=== PATIENT | female | born 1950 | race Caucasian/White ===

== ENCOUNTER 2022-02-03 08:48 | Day surgery (SDC) | payer MEDICARE, SELFPAY ==
[2022-01-23 11:52] VITALS: BMI 38.7
--- NOTE | 2022-01-28 13:11 | P.CONAN_ITS ---
Documented by User: Lola Marte NP 01/28/22 13:12 HPI - Anesthesia Eval Consult details Narrative: 71yo F for Right Cataract Extraction IOL Insertion PCP cleared No previous cataract on record PMFSH Past Medical History Medical History Arthritis of spine Back pain Diabetes Elevated cholesterol Fatty liver History of chemotherapy History of headache HTN (hypertension) Hx of diarrhea TAMARA (obstructive sleep apnea) Surgical History Surgical History History of kidney surgery History of lumpectomy of left breast History of lumpectomy of right breast History of nephrectomy, left Hx of varicose vein ligation and stripping Social History Social History Are you a primary director of primary care to a significant other at home: No Do you presently have visiting nurse or other home services: No Patient Tobacco Use Status: Former Tobacco user Quit Date: 2000 Tobacco use type: Cigarette Use of substances other than those prescribed or required for medical reasons: No Have you been hit, kicked, punched, or otherwise hurt by someone within the past year? If so, by whom?: No Are you DNR?: No Advance Directives: No Advance Directives Information Provided: Yes Advance Directives on File: No Recently lost weight without trying: No Eating poorly because of decreased appetite: No Nutrition Risks: No Nutritional Risk Patient : No Poor oral hygiene: No (Upper Dentures) Meds Allergies Allergy/AdvReac Type Severity Reaction Status Date / Time amoxicillin Allergy Rash Verified 01/23/22 11:41 Iodinated Contrast Media Allergy Rash, [place] Verified 01/23/22 11:41 [Contrast Dye] like Blood Boiling nickel Allergy Rash Verified 01/23/22 11:41 rubber, unspecified Allergy + Rxn from Verified 01/23/22 11:41 allergy testing Sulfa (Sulfonamide Allergy Swelling Verified 01/23/22 11:41 Antibiotics) Home Medications Medication Instructions Recorded Confirmed Last Taken Type anastrozole 1 mg tablet 1 tab PO DAILY 01/23/22 01/23/22 Unknown History carvedilol 25 mg tablet 2 tab PO BID 01/23/22 01/23/22 02/03/22 History duloxetine 30 mg capsule,delayed 30 mg PO DAILY 11/01/23/22 02/03/22 History release duloxetine 60 mg capsule,delayed 60 mg PO DAILY 01/23/22 01/23/22 02/03/22 History release gabapentin 600 mg tablet 1 tab PO TID 01/23/22 01/23/22 02/03/22 History losartan 100 mg tablet 1 tab PO DAILY 01/23/22 01/23/22 02/03/22 History metformin 500 mg tablet 1 tab PO DAILY 01/23/22 01/23/22 Unknown History simvastatin 20 mg tablet 1 tab PO BEDTIME 01/23/22 01/23/22 Unknown History Exam Exam Date and Time: January 28, 2022 1311 Height,Weight and Vital Signs: Height 5 ft 8 in Weight 115.666 kg Assessment and Plan Assessment Anesthesia Assessment: Chart Reviewed Documented by User: Kong Wang MD 02/03/22 13:01 [facility] Past Medical History Medical History Arthritis of spine Back pain Diabetes Elevated cholesterol Fatty liver History of chemotherapy History of headache HTN (hypertension) Hx of diarrhea TAMARA (obstructive sleep apnea) Family History Family history of problems with anesthesia: No Surgical History Surgical History History of kidney surgery History of lumpectomy of left breast History of lumpectomy of right breast History of nephrectomy, left Hx of varicose vein ligation and stripping History of Problems with Anesthesia: No Social History Social History Are you a primary director of primary care to a significant other at home: No Do you presently have visiting nurse or other home services: No Patient Tobacco Use Status: Former Tobacco user Quit Date: 2000 Tobacco use type: Cigarette Use of substances other than those prescribed or required for medical reasons: No Have you been hit, kicked, punched, or otherwise hurt by someone within the past year? If so, by whom?: No Are you DNR?: No Advance Directives: No Advance Directives Information Provided: Yes Advance Directives on File: No Recently lost weight without trying: No Eating poorly because of decreased appetite: No Nutrition Risks: No Nutritional Risk Patient : No Poor oral hygiene: No (Upper Dentures) Meds Allergies Allergy/AdvReac Type Severity Reaction Status Date / Time amoxicillin Allergy Rash Verified 01/23/22 11:41 Iodinated Contrast Media Allergy Rash, [place] Verified 01/23/22 11:41 [Contrast Dye] like Blood Boiling nickel Allergy Rash Verified 01/23/22 11:41 rubber, unspecified Allergy + Rxn from Verified 01/23/22 11:41 allergy testing Sulfa (Sulfonamide Allergy Swelling Verified 01/23/22 11:41 Antibiotics) Home Medications Medication Instructions Recorded Confirmed Last Taken Type anastrozole 1 mg tablet 1 tab PO DAILY 01/23/22 01/23/22 Unknown History carvedilol 25 mg tablet 2 tab PO BID 01/23/22 01/23/22 02/03/22 History duloxetine 30 mg capsule,delayed 30 mg PO DAILY 01/23/22 01/23/22 02/03/22 History release duloxetine 60 mg capsule,delayed 60 mg PO DAILY 01/23/22 01/23/22 02/03/22 History release gabapentin 600 mg tablet 1 tab PO TID 01/23/22 01/23/22 02/03/22 History losartan 100 mg tablet 1 tab PO DAILY 01/23/22 01/23/22 02/03/22 History metformin 500 mg tablet 1 tab PO DAILY 01/23/22 01/23/22 Unknown History simvastatin 20 mg tablet 1 tab PO BEDTIME 01/23/22 01/23/22 Unknown History Exam Airway Mallampati Class: III TM Dist: >3cm Neck ROM: Full Denture: Upper Loose/Missing/Broken Teeth: Yes (upper denture, lower poor dentition missing globally) Heart: [id number] Lungs: cta b/l Assessment and Plan Assessment Anesthesia Assessment: Anesthesia Plan Discussed Final Anesthetic Review Family History of Problems with Anesthesia: No History of Problems with Anesthesia: No NPO: Yes ASA Class: III Final Preanesthetic Review: No Changes in Pt Med Stat, Meds/Allgs Chart Reviewed, Consent Obtained/Reviewed and Anes Risks/Benef Reviewed Patient Risk: Intermediate Procedure Risk: Intermediate Assessment/Block/Sedation in SS: Assess/Block/Sedation-SS Anesthetic Plan Anesthetic Plan: MAC: and Agree w/ Assess. and Plan Disposition: Standard PACU
--- NOTE | 2022-01-29 08:40 | MHC.SHP ---
Pre-Procedural Eval Section A Date of Service: 01/29/22 The patient is an INPATIENT: No Changes since office visit: No Cold of Flu in the past 2 weeks, No New Medical Problems, No Changes in Medication and No Patient answered all questions The History & Physical has been completed within 30 days and I have reviewed it.: Yes Section B Chief Complaint: Age-related nuclear cataract, right eye Allergies: Allergies Allergy/AdvReac Type Severity Reaction Status Date / Time amoxicillin Allergy Rash Verified 01/23/22 11:41 Iodinated Contrast Media Allergy Rash, [place] Verified 01/23/22 11:41 [Contrast Dye] like Blood Boiling nickel Allergy Rash Verified 01/23/22 11:41 rubber, unspecified Allergy + Rxn from Verified 01/23/22 11:41 allergy testing Sulfa (Sulfonamide Allergy Swelling Verified 01/23/22 11:41 Antibiotics) Plan Diagnosis/Plan: Unchanged I have reviewed the history and physical and performed a pertinent physical examination on my patient. No changes have occurred unless specified.
[2022-02-03 10:45] VITALS: BP 171/90; PULSE 89; RESP 18; TEMP 36.6; O2SAT 94
[2022-02-03 11:37] LABS: Glucose, Whole Blood 140 mg/dL (60-115)
[2022-02-03] MEDS: Tetracaine HCl/PF 0.5% Oph Sol 4 ML DROPS 1 DROP EYE-RIGHT (12:23)
[2022-02-03] MEDS: Lactated Ringers 500 ML 50 ML IV (12:30)
[2022-02-03] MEDS: Tropicamide 1 % Ophth Sol 3 ML BTL 1 DROP EYE-RIGHT ×3 (12:30→12:38)
[2022-02-03] MEDS: Cyclopentolate 1 % Ophth Sol 2 ML DRPBTL 1 DROP EYE-RIGHT ×3 (12:30→12:38)
[2022-02-03] MEDS: Ketorolac Tromethamine 0.5% Op 5 ML DROPS 1 DROP EYE-RIGHT ×3 (12:31→12:38)
[2022-02-03] MEDS: Phenylephrine HCL 2.5% Oph SoL 2 ML BOTTLE 1 DROP EYE-RIGHT ×3 (12:31→12:38)
--- NOTE | 2022-02-03 13:38 | HO.PNOPHT ---
Ophthalmology Procedure Procedure Date of Service: 02/03/22 Ophthalmology Viscoelastic: Subhash Parkt Dual Pack Pro Ophthalmology Lenses: TECZEESHAN [id number] (22) Procedure Notes: PREOPERATIVE DIAGNOSIS: Decreased visual acuity right eye secondary to cataract POSTOPERATIVE DIAGNOSIS: Same PROCEDURE: Right cataract extraction with intraocular lens insertion SURGEON: Kannan Adler M.D. ANESTHESIA: Topical/MAC ESTIMATED BLOOD LOSS: None COMPLICATIONS: None After obtaining informed consent, the patient was brought to the operating room suite and placed in the supine position. After adequate sedation per anesthesia, topical drops of Tetracaine were given to the right eye. The eye was then prepped and draped in the usual sterile fashion. The operating room microscope was then positioned over the operative eye and a lid speculum placed. A paracentesis was created. Viscoelastic was then instilled into the anterior chamber. A three plane incision was then created temporally, utilizing a 2.85 mm keratome. Capsulotomy forceps were then utilized to create a circular tear capsulotomy. Hydrodissection and hydrodelineation were carried out until adequate mobilization of the nucleus occurred. Phacoemulsification was then utilized to remove the dense central nucleus followed by removal of the cortical material utilizing the automated aspiration irrigation unit. Viscoelastic was instilled into the posterior capsular bag followed by placement of a posterior chamber intraocular lens without difficulty. The residual Viscoelastic was then removed utilizing the automated IA machine. The wound was checked and found to be watertight. The patient tolerated the procedure well and the lid speculum was removed. Intracameral injection of Vigamox 0.1 mL followed by a subtenon injection of Kenalog-40 0.2 mL were administered. The patient will be seen in the a.m.
[2022-02-03 14:05] VITALS: BP 111/93; PULSE 90; RESP 16; TEMP 37.2; O2SAT 95
== END 2022-02-03 14:19 | disposition home or self-care (01) ==
PROVIDERS: PCP Internal Medicine; Visit Provider Ophthalmology
PROC: (CPT 66985; principal; 2022-02-03 11:30)
DX: H25.11 Age-related nuclear cataract, right eye (principal); I10 Essential (primary) hypertension; E11.9 Type 2 diabetes mellitus without complications; Z79.84 Long term (current) use of oral hypoglycemic drugs; Z79.899 Other long term (current) drug therapy; Z88.0 Allergy status to penicillin; Z88.2 Allergy status to sulfonamides
CPT/HCPCS: 66984; 82947; J2250; J3300; J7999; V2632

== ENCOUNTER 2022-02-17 08:24 | Day surgery (SDC) | payer MEDICARE, SELFPAY ==
[2022-01-23 11:48] VITALS: BMI 38.7
--- NOTE | 2022-02-13 08:51 | P.HPSUR_ITS ---
Pre-Procedural Eval Section A Date of Service: 02/13/22 The patient is an INPATIENT: No Changes since office visit: No Cold of Flu in the past 2 weeks, No New Medical Problems, No Changes in Medication and No Patient answered all questions The History & Physical has been completed within 30 days and I have reviewed it.: Yes Section B Chief Complaint: Age-related nuclear cataract, left eye Allergies: Allergies Allergy/AdvReac Type Severity Reaction Status Date / Time amoxicillin Allergy Rash Verified 01/23/22 11:41 Iodinated Contrast Media Allergy Rash, [place] Verified 01/23/22 11:41 [Contrast Dye] like Blood Boiling nickel Allergy Rash Verified 01/23/22 11:41 rubber, unspecified Allergy + Rxn from Verified 01/23/22 11:41 allergy testing Sulfa (Sulfonamide Allergy Swelling Verified 01/23/22 11:41 Antibiotics) Plan Diagnosis/Plan: Unchanged I have reviewed the history and physical and performed a pertinent physical examination on my patient. No changes have occurred unless specified.
--- NOTE | 2022-02-14 09:34 | P.CONAN_ITS ---
Documented by User: Lola Marte NP 02/14/22 09:35 HPI - Anesthesia Eval Consult details Narrative: 71yo F for Left?Cataract Extraction IOL Insertion PCP cleared Right eye 02/03/22 with MAC: Midaz [facility] Past Medical History Medical History Arthritis of spine Back pain Diabetes Elevated cholesterol Fatty liver History of chemotherapy History of headache HTN (hypertension) Hx of diarrhea TAMARA (obstructive sleep apnea) Family History Family history of problems with anesthesia: No Surgical History Surgical History History of kidney surgery History of lumpectomy of left breast History of lumpectomy of right breast History of nephrectomy, left Hx of varicose vein ligation and stripping History of Problems with Anesthesia: No Social History Social History Are you a primary home care music therapist to a significant other at home: No Do you presently have visiting nurse or other home services: No Patient Tobacco Use Status: Former Tobacco user Quit Date: 2000 Tobacco use type: Cigarette Use of substances other than those prescribed or required for medical reasons: No Have you been hit, kicked, punched, or otherwise hurt by someone within the past year? If so, by whom?: No Are you DNR?: No Advance Directives: No Advance Directives Information Provided: Yes Advance Directives on File: No Recently lost weight without trying: No Eating poorly because of decreased appetite: No Nutrition Risks: No Nutritional Risk Patient : No Poor oral hygiene: No (Upper Dentures) Meds Allergies Allergy/AdvReac Type Severity Reaction Status Date / Time amoxicillin Allergy Rash Verified 01/23/22 11:41 Iodinated Contrast Media Allergy Rash, [place] Verified 01/23/22 11:41 [Contrast Dye] like Blood Boiling nickel Allergy Rash Verified 01/23/22 11:41 rubber, unspecified Allergy + Rxn from Verified 01/23/22 11:41 allergy testing Sulfa (Sulfonamide Allergy Swelling Verified 01/23/22 11:41 Antibiotics) Home Medications Medication Instructions Recorded Confirmed Last Taken Type anastrozole 1 mg tablet 1 tab PO DAILY 01/23/22 01/23/22 Unknown History carvedilol 25 mg tablet 2 tab PO BID 01/23/22 01/23/2202/17/22 History duloxetine 30 mg capsule,delayed 30 mg PO DAILY 01/23/22 01/23/22 02/17/22 History release duloxetine 60 mg capsule,delayed 60 mg PO DAILY 01/23/22 01/23/22 02/17/22 History release gabapentin 600 mg tablet 1 tab PO TID 01/23/22 01/23/22 02/17/22 History losartan 100 mg tablet 1 tab PO DAILY 01/23/22 01/23/22 02/17/22 History metformin 500 mg tablet 1 tab PO DAILY 01/23/22 01/23/22 02/17/22 History simvastatin 20 mg tablet 1 tab PO BEDTIME 01/23/22 01/23/22 Unknown History Exam Exam Date and Time: February 14, 2022 09 Height,Weight and Vital Signs: Height 5 ft 8 in Weight 115.666 kg Assessment and Plan Assessment Anesthesia Assessment: Chart Reviewed Final Anesthetic Review Family History of Problems with Anesthesia: No History of Problems with Anesthesia: No Documented by User: Yamel Pereira MD 02/17/22 10:47 PMFSH Past Medical History Medical History Arthritis of spine Back pain Diabetes Elevated cholesterol Fatty liver History of chemotherapy History of headache HTN (hypertension) Hx of diarrhea TAMARA (obstructive sleep apnea) Surgical History Surgical History History of kidney surgery History of lumpectomy of left breast History of lumpectomy of right breast History of nephrectomy, left Hx of varicose vein ligation and stripping Social History Social History Are you a primary home care music therapist to a significant other at home: No Do you presently have visiting nurse or other home services: No Patient Tobacco Use Status: Former Tobacco user Quit Date: 2000 Tobacco use type: Cigarette Use of substances other than those prescribed or required for medical reasons: No Have you been hit, kicked, punched, or otherwise hurt by someone within the past year? If so, by whom?: No Are you DNR?: No Advance Directives: No Advance Directives Information Provided: Yes Advance Directives on File: No Recently lost weight without trying: No Eating poorly because of decreased appetite: No Nutrition Risks: No Nutritional Risk Patient : No Poor oral hygiene: No (Upper Dentures) Meds Allergies Allergy/AdvReac Type Severity Reaction Status Date / Time amoxicillin Allergy Rash Verified 01/23/22 11:41 Iodinated Contrast Media Allergy Rash, [place] Verified 01/23/22 11:41 [Contrast Dye] like Blood Boiling nickel Allergy Rash Verified 01/23/22 11:41 rubber, unspecified Allergy + Rxn from Verified 01/23/22 11:41 allergy testing Sulfa (Sulfonamide Allergy Swelling Verified 01/23/22 11:41 Antibiotics) Home Medications Medication Instructions Recorded Confirmed Last Taken Type anastrozole 1 mg tablet 1 tab PO DAILY 01/23/22 01/23/22 Unknown History carvedilol 25 mg tablet 2 tab PO BID 01/23/22 01/23/22 02/17/22 History duloxetine 30 mg capsule,delayed 30 mg PO DAILY 01/23/22 01/23/22 02/17/22 History release duloxetine 60 mg capsule,delayed 60 mg PO DAILY 01/23/22 01/23/22 02/17/22 History release gabapentin 600 mg tablet 1 tab PO TID 01/23/22 01/23/22 02/17/22 History losartan 100 mg tablet 1 tab PO DAILY 01/23/22 01/23/22 02/17/22 History metformin 500 mg tablet 1 tab PO DAILY 01/23/22 01/23/22 02/17/22 History simvastatin 20 mg tablet 1 tab PO BEDTIME 01/23/22 01/23/22 Unknown History Exam Airway Mallampati Class: III TM Dist: >3cm Neck ROM: Full Denture: Upper Heart: rrr Lungs: cta Assessment and Plan Assessment Anesthesia Assessment: Anesthesia Plan Discussed and Chart Reviewed Final Anesthetic Review NPO: Yes Final Preanesthetic Review: No Changes in Pt Med Stat, Meds/Allgs Chart Reviewed and Consent Obtained/Reviewed Patient Risk: Intermediate Procedure Risk: Intermediate Anesthetic Plan Anesthetic Plan: MAC: Disposition: Standard PACU
[2022-02-17 10:29] VITALS: BP 146/82; PULSE 96; RESP 16; TEMP 35.9; O2SAT 94
[2022-02-17] MEDS: Lactated Ringers 500 ML 50 ML IV (10:31)
[2022-02-17] MEDS: Tetracaine HCl/PF 0.5% Oph Sol 4 ML DROPS 1 DROP EYE-LEFT (10:32)
[2022-02-17] MEDS: Cyclopentolate 1 % Ophth Sol 2 ML DRPBTL 1 DROP EYE-LEFT ×3 (10:33→10:47)
[2022-02-17] MEDS: Tropicamide 1 % Ophth Sol 3 ML BTL 1 DROP EYE-LEFT ×3 (10:34→10:48)
[2022-02-17] MEDS: Ketorolac Tromethamine 0.5% Op 5 ML DROPS 1 DROP EYE-LEFT ×3 (10:36→10:49)
[2022-02-17] MEDS: Phenylephrine HCL 2.5% Oph SoL 2 ML BOTTLE 1 DROP EYE-LEFT ×3 (10:37→10:50)
[2022-02-17 10:47] LABS: Glucose, Whole Blood 118 mg/dL (60-115)
--- NOTE | 2022-02-17 11:39 | HO.PNOPHT ---
Ophthalmology Procedure Procedure Date of Service: 02/17/22 Ophthalmology Viscoelastic: Healjennifer Duet Dual Pack Pro Ophthalmology Lenses: TECZEESHAN [id number] (22) Procedure Notes: PREOPERATIVE DIAGNOSIS: Decreased visual acuity left eye secondary to cataract POSTOPERATIVE DIAGNOSIS: Same PROCEDURE: Left cataract extraction with intraocular lens insertion SURGEON: Kannan Adler M.D. ANESTHESIA: Topical/MAC ESTIMATED BLOOD LOSS: None COMPLICATIONS: None After obtaining informed consent, the patient was brought to the operation room suite and placed in the supine position. After adequate sedation per anesthesia, topical drops of Tetracaine were given to the left eye. The eye was then prepped and draped in the usual sterile fashion. The operating room microscope was then positioned over the operative eye and a lid speculum placed. A paracentesis was created. Viscoelastic was then instilled into the anterior chamber. A three plane incision was then created temporally, utilizing a 2.85 mm keratome. Capsulotomy forceps were then utilized to create a circular tear capsulotomy. Hydrodissection and hydrodelineation were carried out until adequate mobilization of the nucleus occurred. Phacoemulsification was then utilized to remove the dense central nucleus followed by removal of the cortical material utilizing the automated aspiration irrigation unit. Viscoat elastic was instilled into the posterior capsular bag followed by placement of a posterior chamber intraocular lens without difficulty. The residual Viscoat elastic was then removed utilizing the automated IA machine. The wound was check and found to be watertight. The patient tolerated the procedure well and the lid speculum was removed. Intracameral injection of Vigamox 0.1 mL followed by a subtenon injection of Kenalog-40 0.2 mL were administered. The patient will be seen in the a.m.
[2022-02-17 12:08] VITALS: BP 140/80; PULSE 97; RESP 18; TEMP 36.6; O2SAT 96
[2022-02-17] MEDS: Acetaminophen 325 MG TABLET 975 MG PO (12:12)
== END 2022-02-17 12:22 | disposition home or self-care (01) ==
PROVIDERS: PCP Internal Medicine; Visit Provider Ophthalmology
PROC: (CPT 66985; principal; 2022-02-17 11:30)
DX: H25.12 Age-related nuclear cataract, left eye (principal); E11.9 Type 2 diabetes mellitus without complications; I10 Essential (primary) hypertension; Z79.84 Long term (current) use of oral hypoglycemic drugs; Z79.899 Other long term (current) drug therapy; Z88.0 Allergy status to penicillin; Z88.2 Allergy status to sulfonamides; Z91.041 Radiographic dye allergy status
CPT/HCPCS: 66984; 82947; J2250; J3010; J3301; J7999; V2632

== ENCOUNTER 2024-07-01 11:20 | Outpatient (RCR) | payer MEDICARE, SELFPAY | END 2024-08-10 16:35 | disposition home or self-care (01) | LOC: HO.WCC 11:20 | PROVIDERS: PCP Internal Medicine; Visit Provider Surgery Surgical Oncology | DX: E11.621 Type 2 diabetes mellitus with foot ulcer (principal); L97.512 Non-pressure chronic ulcer of other part of right foot with fat layer exposed; E11.40 Type 2 diabetes mellitus with diabetic neuropathy, unspecified; I10 Essential (primary) hypertension; L84 Corns and callosities; Z87.891 Personal history of nicotine dependence | CPT/HCPCS: 11042; 15275; Q4187 ==

== ENCOUNTER 2024-07-29 23:13 | Emergency (ER) | payer MEDICARE, SELFPAY ==
--- NOTE | ~2024-07-29 | XR_ITS ---
CLINICAL HISTORY: fall pain 3 view right ankle Comparison: None Findings: There is a fracture of the medial malleolus. There is a distal fibular fracture with overlying soft tissue swelling. No significant loss of joint space, osteophytes, or erosions. No ankle effusion. No radiopaque foreign body. IMPRESSION: 1. Distal fibular and medial malleolar fractures. This document has been electronically signed by: Jett Dumont MD on 07/30/2024 04:41:55
[2024-07-29 23:16] VITALS: BP 185/91; PULSE 100; RESP 17; TEMP 36.6; O2SAT 100; BMI 34.2
--- NOTE | 2024-07-30 01:00 | PC.NURSE ---
pt brought to ed23 via wheelchair, refusing to sit in hospital bed states comfortable in wheelchair. pt states pain does not improve with tylenol taken lighter captain. awaiting to be seen by ed provider.
[2024-07-30] MEDS: oxyCODONE HCl Immed Release 5 MG TABLET PO (02:47)
--- NOTE | 2024-07-30 03:59 | ED.GENADULT ---
HPI - General Adult General Chief complaint: Fall Stated complaint: ankle injury, fall Time Seen by Provider: 07/30/24 02:22 Source: patient Limitations: no limitations History of Present Illness ED Provider: Chio Lawrence PA-C HPI narrative: 73-year-old female with a history of obesity, hypertension, hyperlipidemia, diabetes, who presents with right ankle pain. Patient states she missed the curbing, step-down, subsequently rolling her ankle, now with pain and swelling. Patient states she can not bear weight secondary to the pain. Patient did not strike her head with the fall. Related Data Home Medications ?Medication ?Instructions ?Recorded ?Confirmed anastrozole 1 mg tablet 1 tab PO DAILY 01/23/22 01/23/22 carvedilol 25 mg tablet 2 tab PO BID 01/23/22 01/23/22 duloxetine 30 mg capsule,delayed 30 mg PO DAILY 01/23/22 01/23/22 release duloxetine 60 mg capsule,delayed 60 mg PO DAILY 01/23/22 01/23/22 release gabapentin 600 mg tablet 1 tab PO TID 01/23/22 01/23/22 losartan 100 mg tablet 1 tab PO DAILY 01/23/22 01/23/22 metformin 500 mg tablet 1 tab PO DAILY 01/23/22 01/23/22 simvastatin 20 mg tablet 1 tab PO BEDTIME 01/23/22 01/23/22 Previous Rx's ?Medication ?Instructions ?Recorded oxycodone 5 mg tablet 5 mg PO Q6H PRN pain #14 tabs 07/30/24 Allergies Allergy/AdvReac Type Severity Reaction Status Date / Time amoxicillin Allergy Rash Verified 07/29/24 23:18 Iodinated Contrast Media Allergy Rash, [place] Verified 07/29/24 23:18 [Contrast Dye] like Blood Boiling nickel Allergy Rash Verified 07/29/24 23:18 rubber, unspecified Allergy + Rxn from Verified 07/29/24 23:18 allergy testing Sulfa (Sulfonamide Allergy Swelling Verified 07/29/24 23:18 Antibiotics) Review of Systems Review of Systems: Yes all other systems are reviewed and are negative Constitutional: Constitutional: Denies fatigue and Denies fever(s) Cardiovascular: Cardiovascular: Denies chest pain and Denies dyspnea Respiratory: Respiratory: Denies dyspnea Musculoskeletal: Musculoskeletal: Reports arthralgias and Reports joint swelling Endocrine: Endocrine: Denies fatigue PMFSH Past Medical History Attestation statement: The following information was validated with the patient. Medical History Arthritis of spine Back pain Diabetes Elevated cholesterol Fatty liver History of chemotherapy History of headache HTN (hypertension) Hx of diarrhea TAMARA (obstructive sleep apnea) Surgical History History of kidney surgery History of lumpectomy of left breast History of lumpectomy of right breast History of nephrectomy, left Hx of varicose vein ligation and stripping Social History Social History Are you a primary day care center director to a significant other at home: No Do you presently have visiting nurse or other home services: No Patient Tobacco Use Status: Former Tobacco user Tobacco use type: Cigarette Advance Directives: No Advance Directives Information Provided: Yes Do you have a plan to hurt others: No Plan Physical Exam ED Vital Signs: Vital Signs - 24 hr 07/29/24 23:16 07/30/24 04:03 Temperature 97.8 F 98.2 F Pulse Rate 100 105 H Respiratory Rate 17 20 Blood Pressure 185/91 H 154/71 H Pulse Oximetry 100 93 Oxygen Delivery Method Room Air Room Air BMI result Body Mass Index 34.2 Const Other: Alert Orientation/consciousness: patient oriented x3 Resp Effort & Inspection: normal respiratory effort Cardio Other: Normal peripheral perfusion Skin Other: Warm dry no rash Neuro General: patient oriented x3, no focal motor deficits and CN's II-XI intact bilaterally Extrem Other: Ankle is uniformly swollen Psych Other: Hostile, displeased at the wait time this evening Medications Administered Discontinued Medications Generic Name Dose Route Start Last Admin Trade Name Freq PRN Reason Stop Dose Admin Oxycodone HCl 5 mg 07/30/24 02:33 07/30/24 02:47 Oxycodone Hcl Immed Release 5 Mg Tablet PO 07/30/24 02:34 5 mg ONCE ONE Administration Procedures Orthopedic Splinting/Casting Right bimalleolar ankle fracture: Side: right Lower Extremity Injury Location: ankle Lower Extremity Immobilizer: posterior splint and stirrup splint Other Orthopedic Equipment: crutches Additional Comments: Patient was placed in 3 layers of cast padding. A 4 in x 35 in piece of cast padding was used to make the stirrup splint and a 4 x 35 in piece of cast padding was used to make the posterior splint. These were held in place with [place] wraps. Patient's foot was neurovascularly intact after placement of the splint. 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 Patient states she missed the curbing, step-down, subsequently rolling her ankle, now with pain and swelling. Patient states she can not bear weight secondary to the pain. Patient did not strike her head with the fall. Problem: Age, obesity History: Per patient I have considered the following differential diagnoses: Fracture, dislocation, sprain, contusion Plan: X-rays are pending, giving the patient oxycodone for her discomfort. I have independently reviewed the following tests: X-ray right ankle. Pending at the time of sign-out 07/30/2024 at 05:30 hours, Dr. Moe Lockwood's note: I assumed care of this patient from my colleague, physician wardrobe assistant Chio Lawrence at 04:00 hours, pending the radiology reading of the patient's right ankle x-ray. I did review the radiology reading below. Patient has a distal fibular and medial malleolar fracture. The patient was placed in a sugar-tong and posterior ortho glass splint by me. The patient only has 1 functioning kidney therefore she can not take ibuprofen. She was advised to take Tylenol and for pain not relieved by Tylenol she was prescribed oxycodone. She was given printed and verbal instructions and discharged home. 3 view right ankle Comparison: None Findings: There is a fracture of the medial malleolus. There is a distal fibular fracture with overlying soft tissue swelling. No significant loss of joint space, osteophytes, or erosions. No ankle effusion. No radiopaque foreign body. IMPRESSION: 1. Distal fibular and medial malleolar fractures. This document has been electronically signed by: Jett Dumont MD on 07/30/2024 04:41:55 Discharge Plan Discharge Clinical Impression: Bimalleolar ankle fracture Qualifiers: Encounter type: initial encounter Fracture type: closed Laterality: right Qualified Code(s): S82.841A - Displaced bimalleolar fracture of right lower leg, initial encounter for closed fracture Patient Disposition: Home, Self-Care Additional Instructions: You broke/fractured your ankle bones. You broke the distal tibia and distal fibula. You were placed in a sugar-tong and posterior splint. You need to keep the splint on until your re-evaluated by the orthopedic providers. Do not get the splint wet. Use your wheelchair and the crutches to get around. Try not to put any weight on the ankle when your using the crutches but you can touch your foot down to the floor to help with your balance. Take Tylenol (acetaminophen) 500 mg pills, 2 pills every 4-6 hours as needed for pain. For pain not relieved by Tylenol take oxycodone 5 mg pills, 1 pill every 4 hours as needed for pain. Do not drive or work while taking this medication since they can cause sleepiness. Oxycodone is a narcotic medication that can be addicting. If you are concerned about addiction you can ask the pharmacist for less pills or do not get this prescription filled. Follow-up with your doctor in 2 days. Please return to the emergency department if your symptoms get worse or if you develop any symptoms that are concerning to you. Prescriptions: New oxycodone 5 mg tablet 5 mg PO Q6H PRN (Reason: pain) Qty: 14 0RF Rx Instructions: Partial Fill upon patient request. No Action metformin 500 mg tablet 1 tab PO DAILY anastrozole 1 mg tablet 1 tab PO DAILY gabapentin 600 mg tablet 1 tab PO TID simvastatin 20 mg tablet 1 tab PO BEDTIME losartan 100 mg tablet 1 tab PO DAILY duloxetine 30 mg capsule,delayed release(DR/EC) 30 mg PO DAILY duloxetine 60 mg capsule,delayed release(DR/EC) 60 mg PO DAILY carvedilol 25 mg tablet 2 tab PO BID Referrals: Malick Clifford MD [Physician] - 1 week (Right ankle trimalleolar fracture, placed in sugar-tong and posterior splint. IMPRESSION: 1. Distal fibular and medial malleolar fractures.) Print Language: Icelandic
[2024-07-30 04:03] VITALS: BP 154/71; PULSE 105; RESP 20; TEMP 36.8; O2SAT 93
[2024-07-30 06:23] VITALS: BP 154/71; PULSE 105; RESP 20; TEMP 36.8; O2SAT 93
== END 2024-07-30 06:43 | disposition home or self-care (01) ==
PROVIDERS: Emergency Provider Emergency Medicine Emergency Medical Services; PCP Internal Medicine
DX: S82.841A Displaced bimalleolar fracture of right lower leg, initial encounter for closed fracture (principal); M25.571 Pain in right ankle and joints of right foot; X58.XXXA Exposure to other specified factors, initial encounter; X50.1XXA Overexertion from prolonged static or awkward postures, initial encounter; Y99.8 Other external cause status; Y93.9 Activity, unspecified; Y92.480 Sidewalk as the place of occurrence of the external cause
CPT/HCPCS: 73610; 99283; 99284

== ENCOUNTER → 2024-07-30 | Outpatient (BNV) | payer MEDICARE, SELFPAY | PROVIDERS: Emergency Provider Emergency Medicine Emergency Medical Services; PCP Internal Medicine; Visit Provider Specialist | DX: S82.831A Other fracture of upper and lower end of right fibula, initial encounter for closed fracture (principal); S82.51XA Displaced fracture of medial malleolus of right tibia, initial encounter for closed fracture; W19.XXXA Unspecified fall, initial encounter | CPT/HCPCS: 73610 ==

== ENCOUNTER 2024-08-05 14:17 | Outpatient (REF) | payer MEDICARE, SELFPAY ==
--- NOTE | ~2024-08-05 | XR_ITS ---
EXAMINATION: XR ANKLE 3 OR MORE VIEWS RIGHT HISTORY: M25.579 - Pain in unspecified ankle and joints of unspecified foot COMPARISON: Comparison is made with the prior examination dated 07/30/2024. FINDINGS: Three views of the right ankle are submitted. Osseous mineralization is normal. Again seen is an oblique fracture of the distal fibula and transverse fracture of the medial malleolus. Both fractures demonstrate slightly increased displacement since the prior study. There is no dislocation. The joint spaces are preserved. There is diffuse soft tissue swelling. XR/XR ankle RT min 3V IMPRESSION: Slightly greater displacement of the previously noted oblique fracture of the distal fibula and transverse fracture of the medial malleolus. Electronically signed by: Christiano Senior MD 08/08/2024 07:19 AM EDT
--- OUTSIDE RECORDS SUMMARY | 2024-08-05 14:20 | XMS_ITS | Clinical Summary ---
Author Organization [facility] Address [address] [place] [address] Care Team Providers Care Shower Enclosure Installer Name Role Phone Taylor Contreras MD Primary Care Provider [phone] Josselyn Rice RN Unavailable [phone] Allergies Active Allergy Reactions Criticality Noted Date Comments Amoxicillin Rash/Dermatitis Medium 10/11/2015 Iodinated Contrast Media Hives Medium 10/11/2015 Nickel Rash/Dermatitis Low 10/11/2015 Sulfa Antibiotics Swelling Medium 10/11/2015 Medications carvedilol (COREG) 25 MG tablet Take 25 mg by mouth 2 (two) times a day with meals. 2 09/07/2015 Active simvastatin (ZOCOR) 20 MG tablet Take 20 mg by mouth nightly. 1 08/09/2015 Active gabapentin (NEURONTIN) 600 MG tablet Take 600 mg by mouth 3 (three) times a day. Active losartan (COZAAR) 25 MG tablet TK 1 T PO QD 11 03/05/2016 Active calcium carbonate-vitam in D (OSCAL) 500 mg-200 unit Tab tablet Take 1 tablet by mouth every morning with breakfast. Active Active Problems Problem Noted Date Diagnosed Date Chronic kidney disease (CKD) 06/03/2016 Renal cancer 06/03/2016 History of kidney cancer 03/19/2016 Renal mass 11/05/2015 Right renal mass 10/11/2015 Family History Medical History Relation Name Comments Lung cancer Father Heart failure Mother Relation Name Status Comments Father Mother Social History Tobacco Use Types Packs/Day Years Used Date Smoking Tobacco: Former Cigarettes 1 35 0 09/06/1965 - 09/06/2000 Alcohol Use Standard Drinks/Week Comments Yes 3 (1 standard drink = 0.6 oz pur e alcohol) Comments No Sex and Gender Information Value Date Recorded Sex Assigned at Not on file Legal Sex Female 3:27 PM EDT Gender Identity Not on file Sexual Orientation Not on file Last Filed Vital Signs Vital Sign Reading Time Taken Comments Blood Pressure 130/78 06/03/2016 2:46 PM EDT Pulse 95 11/27/2015 11:11 AM EDT Temperature 36.8 ??C (98.2 ??F) 11/27/2015 11:11 AM E DT Respiratory Rate 16 06/03/2016 2:46 PM EDT Oxygen Saturation 95% 11/11/2015 12:30 PM EDT Inhaled Oxygen Concentration - - Weight 109 kg (240 lb) 06/03/2016 2:46 PM EDT Height 172.7 cm (5' 8 ) 06/03/2016 2:46 PM EDT Body Mass Index 36.49 06/03/2016 2:46 PM EDT Plan of Treatment Health Maintenance Due Date Last Done Comments Hepatitis C Virus Screening 1950 COVID-19 Vaccine (#1) 10[birth year]25/1955 DTaP/Tdap/Td Vaccines (1 - Tdap) 1969 Pneumococcal Vaccines 50+ (1 of 2 - PCV) 1969 Zoster (Shingles) Vaccine (1 of 2) 1969 Mammogram 1990 Colonoscopy 10/25/1995 DXA Bone Density (Females,Ag es 65 and older) 10/25/2015 Influenza Vaccine 10/07/2024 RSV Vaccine 60 years and old er and Patients (1 - 1-dose 75+ series) 2025 Hepatitis B Vaccines Aged Out No long er eligible based on patient's age to complete this topic Insurance JOSE CARLOS [id number] MEDICARE PART A & B [facility] PPO Advance Directives * Full Code (Latest Code Status on File) Date Activated Date Inactivated Comments 11/05/2015 5:07 PM 11/11/2015 9:17 PM * Full Code Date Activated Date Inactivated Comments 11/05/2015 6:11 AM 11/05/2015 5:07 PM Care Teams Shower Enclosure Installer Relationship Specialty Start Date End Date Taylor Contreras MD [address] [facility] [address] [place] [address] PCP - General Internal Medicine 10/05/15 Josselyn Rice, GERONIMO [address] [address] Oncology Nurse Navigator 11/07/15
== END 2024-08-05 14:18 | disposition home or self-care (01) ==
LOC: HO.HOSX 14:17
PROVIDERS: Visit Provider Physician Assistant
DX: M25.571 Pain in right ankle and joints of right foot (principal); S82.841A Displaced bimalleolar fracture of right lower leg, initial encounter for closed fracture; W01.0XXA Fall on same level from slipping, tripping and stumbling without subsequent striking against object, initial encounter; Y93.01 Activity, walking, marching and hiking; Y92.89 Other specified places as the place of occurrence of the external cause; Y99.9 Unspecified external cause status
CPT/HCPCS: 29515; 73610; 99202

== ENCOUNTER 2024-08-05 14:20 | Outpatient (AMB) | payer MEDICARE, SELFPAY ==
[2024-08-05 14:43] VITALS: BMI 34.1
--- NOTE | 2024-08-05 14:43 | MHC.OFFVIS ---
Vital Signs 08/05/24 14:43 Height 5 ft 8 in Weight 224 lb BMI 34.1 Intake Visit Reasons: ER/FX-Right ankle fx [facility]-07/29/24 Intake Note: Dorie 73 yr old female presents today for a ED follow up visit from [facility] 07/29/24. Patient states she missed the curb, step-down, subsequently rolling her ankle, now with pain and swelling. She was splinted in ED and referred to orthopedic. Currently states she is still havign pain on both sides of the ankle. Denies numbness and tingling in her toes. Patient is taking oxycodone with mild relief. Allergies amoxicillin Allergy (Verified 07/29/24 23:18) Rash Iodinated Contrast Media [Contrast Dye] Allergy (Verified 07/29/24 23:18) Rash, [place] like Blood Boiling nickel Allergy (Verified 07/29/24 23:18) Rash rubber, unspecified Allergy (Verified 07/29/24 23:18) + Rxn from allergy testing Sulfa (Sulfonamide Antibiotics) Allergy (Verified 07/29/24 23:18) Swelling HPI HPI ER/FX-Right ankle fx [facility]-07/29/24: Details: Ms. Treadwell is a 73-year-old female who presents to the office today status post right ankle bimalleolar fracture. Date of injury was 07/29/2024 when she missed stepping off of a curb and fell. She felt immediate pain and presented to the emergency department where x-rays were obtained. She was found to have the right ankle bimalleolar fracture and was placed into a posterior splint. She was instructed not to weightbear and follow up with orthopedics. [facility] Medical History Arthritis of spine Back pain Diabetes Elevated cholesterol Fatty liver History of chemotherapy History of headache HTN (hypertension) Hx of diarrhea TAMARA (obstructive sleep apnea) Surgical History History of kidney surgery History of lumpectomy of left breast History of lumpectomy of right breast History of nephrectomy, left Hx of varicose vein ligation and stripping Social History Are you a primary career resource technician to a significant other at home: No Do you presently have visiting nurse or other home services: No Patient Tobacco Use Status: Former Tobacco user Tobacco use type: Cigarette Review of Systems Const All systems reviewed & are unremarkable except as noted in HPI and below Physical Exam Vital Signs: BMI result Body Mass Index 34.1 Const General: cooperative, healthy appearing and no acute distress Resp Effort & Inspection: normal respiratory effort and able to speak in complete sentences Extrem Other: Right ankle: Skin is intact over the medial and lateral malleolus. Tenderness to palpation over the medial and lateral malleolus. She is able to slightly dorsiflex and plantar flex. Sensation is intact. Pedal pulse intact. Office Procedures AMB Fracture Care Fracture Billing Code: Fracture Billing Code Casting/Splints [id number] Leg splint application Procedure code (CPT) selection complete Assessment & Plan Assessment & Plan (1) Bimalleolar fracture of right ankle: Code(s): S82.841A - Displaced bimalleolar fracture of right lower leg, initial encounter for closed fracture Category: Medical Plan Ms. Treadwell is a 73-year-old female who presents to the office today status post right ankle bimalleolar fracture. Date of injury was 07/29/2024 when she missed stepping off of a curb and fell. She felt immediate pain and presented to the emergency department where x-rays were obtained. She was found to have the right ankle bimalleolar fracture and was placed into a posterior splint. She was instructed not to weightbear and follow up with orthopedics. While in the office today, we discussed the role of surgical versus conservative treatment options. Patient does have a past medical history significant for diabetes. We discussed the impact of this on wound healing. She is ambulatory at baseline and lives alone. She does have a daughter that is in the area but is unable to spend 24 hour care with her. The daughter is significantly concerned about her mother safety as she is unable to ambulate with crutches in his using a wheelchair in her apartment. Unfortunately, the apartment is not completely wheelchair accessible. In the emergency department there was a recommendation to consider rehab placement however at that time the patient felt that she was able to take care of herself at home. After surgery it would be in the patient's best interest to be admitted to the [facility] floor with a physical therapy evaluation. The patient will be nonweightbearing on the right lower extremity for 6 weeks postoperatively. If she should fail her physical therapy evaluation rehab would be recommended at that time and case management would step in to help with placement. Today she was placed back into a posterior splint. She will continue nonweightbearing. I discussed in detail the procedure and what to expect pre and post operatively. We discussed the risks, benefits and alternatives to the surgery as well as the rehabilitation course. The risks; which include, but are not limited to infection, bleeding, nerve injury, ongoing pain, swelling, and stiffness, perioperative risk of injury to bones and soft tissues, and blood clots. I?ve answered all questions and with their understanding they have consented to move forward with right ankle open reduction internal fixation with Dr. Clifford. X-rays of the right ankle which were obtained while in the office today and were reviewed by me, Brittany Tilley PA-C, revealed redemonstration of right ankle bimalleolar fracture. Orders: Orders XR ankle RT min 3V Today M25.579 - Pain in unspecified ankle and joints of unspecified foot Coding Level of Care Code New Pt Level 4 (85716) Diagnoses Bimalleolar fracture of right ankle S82.841A CPT Codes Fracture Care - Fracture Billing Code: Fracture Billing Code ([id number]) Splint - CPT: 76937-Njirn Leg splint application ([id number])
== END 2024-08-05 15:25 | disposition home or self-care (01) ==
LOC: HO.HOS 14:20
PROVIDERS: PCP Internal Medicine; Visit Provider Physician Assistant
DX: S82.841A Displaced bimalleolar fracture of right lower leg, initial encounter for closed fracture (principal)
CPT/HCPCS: 29515; 99204

== ENCOUNTER → 2024-08-05 14:21 | Outpatient (BNV) | payer MEDICARE, SELFPAY | PROVIDERS: Visit Provider Radiology Diagnostic Radiology | DX: M25.571 Pain in right ankle and joints of right foot (principal) | CPT/HCPCS: 73610 ==

== ENCOUNTER 2024-08-08 14:14 | Outpatient (AMB) | payer MEDICARE, SELFPAY ==
--- NOTE | 2024-08-08 14:36 | MHC.OFFVIS ---
Intake Visit Reasons: OV-Right ankle FX-Posterior Splint change Intake Note: Dorie 73 yr old female presents today for a ED follow up visit from [facility] 07/29/24. Patient states she took oxycodone for her pain and when she would up in the middle of the night she started picking at the splint till she realized that she removed her splint. Allergies amoxicillin Allergy (Verified 08/08/24 14:40) Rash Iodinated Contrast Media [Contrast Dye] Allergy (Verified 08/08/24 14:40) Rash, [place] like Blood Boiling nickel Allergy (Verified 08/08/24 14:40) Rash rubber, unspecified Allergy (Verified 08/08/24 14:40) + Rxn from allergy testing Sulfa (Sulfonamide Antibiotics) Allergy (Verified 08/08/24 14:40) Swelling HPI HPI OV-Right ankle FX-Posterior Splint change: Details: Ms. Treadwell is a 73-year-old female who presents to the office today after she removed her splint on the right lower extremity. She is pending right ankle ORIF on 08/10/24. [facility] Medical History Arthritis of spine Back pain Diabetes Elevated cholesterol Fatty liver History of chemotherapy History of headache HTN (hypertension) Hx of diarrhea TAMARA (obstructive sleep apnea) Surgical History History of kidney surgery History of lumpectomy of left breast History of lumpectomy of right breast History of nephrectomy, left Hx of varicose vein ligation and stripping Social History Are you a primary physician locums urgent care to a significant other at home: No Do you presently have visiting nurse or other home services: No Patient Tobacco Use Status: Former Tobacco user Tobacco use type: Cigarette Review of Systems Const All systems reviewed & are unremarkable except as noted in HPI and below Physical Exam Const General: cooperative, healthy appearing and no acute distress Resp Effort & Inspection: normal respiratory effort and able to speak in complete sentences Extrem Other: Right ankle: Skin is intact over the medial and lateral malleolus. Tenderness to palpation over the medial and lateral malleolus. She is able to slightly dorsiflex and plantar flex. Sensation is intact. Pedal pulse intact. Office Procedures Casting/Splints [id number] Leg splint application Procedure code (CPT) selection complete Assessment & Plan Assessment & Plan (1) Bimalleolar fracture of right ankle: Code(s): S82.841A - Displaced bimalleolar fracture of right lower leg, initial encounter for closed fracture Category: Medical Plan While in the office today, the patient was placed into a new posterior short-leg splint. She will continue to non weightbear. She is pending surgical ORIF on 08/10/[address] Clifford. Patient was educated on splint maintenance and instructed to keep the cast clean, dry, and intact. However, should the cast become wet, dirty, damaged, or there are any concerns please call the office immediately for a splint change. She will follow up at her normally scheduled follow up appointment, sooner if needed. Coding Level of Care Code Est Pt Level 3 (75549) Diagnoses Bimalleolar fracture of right ankle S82.841A CPT Codes Splint - CPT: 58314-Xjfuu Leg splint application ([id number])
--- OUTSIDE RECORDS SUMMARY | 2024-08-08 15:31 | XMS_ITS | Clinical Summary ---
Author Organization [employer], Located Within [facility] Address [address] [place] [address] Care Team Providers Care Anesthetist Name Role Phone Taylor Contreras MD Primary Care Provider [phone] Josselyn Rice RN Unavailable [phone] Allergies Active Allergy Reactions Criticality Noted [...] to complete this topic Insurance JOSE CARLOS [id number] MEDICARE PART A & B [facility] PPO Advance Directives * Full Code (Latest Code Status on File) Date Activated Date Inactivated Comments 11/05/2015 5:07 PM 11/11/2015 9:17 PM * Full Code Date Activated Date Inactivated Comments 11/05/2015 6:11 AM 11/05/2015 5:07 PM Care Teams Anesthetist Relationship Specialty Start Date End Date Taylor Contreras MD [address] [facility] [address] [place] [address] PCP - General Internal Medicine 10/05/15 Josselyn Rice, GERONIMO [address] [address] Oncology Nurse Navigator 11/07/15
== END 2024-08-08 15:01 | disposition home or self-care (01) ==
LOC: HO.HOS 14:14
PROVIDERS: Visit Provider Physician Assistant
DX: S82.841A Displaced bimalleolar fracture of right lower leg, initial encounter for closed fracture (principal)
CPT/HCPCS: 29515; 99213

== ENCOUNTER → 2024-08-08 14:14 | Outpatient (BNVA) | payer MEDICARE, SELFPAY | PROVIDERS: Visit Provider Physician Assistant | DX: S82.841D Displaced bimalleolar fracture of right lower leg, subsequent encounter for closed fracture with routine healing (principal); X58.XXXD Exposure to other specified factors, subsequent encounter | CPT/HCPCS: 29515; 99212 ==

== ENCOUNTER 2024-08-10 | Day surgery (SDC) | payer MEDICARE, SELFPAY ==
--- NOTE | 2024-08-08 15:20 | HO.ANESPROP2 ---
Documented by User: Lola Marte NP 08/09/24 09:42 HPI - Anesthesia Eval Consult details Narrative: 73yo F for Right Ankle Fracture ORIF BMI 40.6 Anesthesia Pre-Procedure Meds Is the patient on any of the following meds?: GLP1/DPP4 PMFSH Active Problems Active Problems: All Active Problems Bimalleolar fracture of right ankle (Acute) Past Medical History Medical History Fatty liver History of chemotherapy Arthritis of spine Back pain Hx of diarrhea Diabetes History of headache TAMARA (obstructive sleep apnea) Elevated cholesterol HTN (hypertension) Family History Family history of problems with anesthesia: No Surgical History Surgical History Hx of varicose vein ligation and stripping History of lumpectomy of right breast History of lumpectomy of left breast History of kidney surgery History of nephrectomy, left History of Problems with Anesthesia: No Social History Social History Are you a primary children's zoo caretaker to a significant other at home: No Do you presently have visiting nurse or other home services: No Patient Tobacco Use Status: Former Tobacco user Tobacco use type: Cigarette Second Hand Smoke Exposure: No Use of substances other than those prescribed or required for medical reasons: No Have you been hit, kicked, punched, or otherwise hurt by someone within the past year? If so, by whom?: No Are you DNR?: No Advance Directives: No Advance Directives Information Provided: No Advance Directives on File: No Patient : No : No Poor oral hygiene: No Meds Allergies Allergy/AdvReac Type Severity Reaction Status Date / Time amoxicillin Allergy Rash Verified 08/08/24 14:40 Iodinated Contrast Media Allergy Rash, [place] Verified 08/08/24 14:40 [Contrast Dye] like Blood Boiling nickel Allergy Rash Verified 08/08/24 14:40 rubber, unspecified Allergy + Rxn from Verified 08/08/24 14:40 allergy testing Sulfa (Sulfonamide Allergy Swelling Verified 08/08/24 14:40 Antibiotics) Home Medications ?Medication ?Instructions ?Recorded ?Confirmed ?Last Taken ?Type anastrozole 1 mg tablet 1 tab PO DAILY 01/23/22 08/10/24 08/09/24 History carvedilol 25 mg tablet 2 tab PO BID 01/23/22 08/10/24 08/09/24 History duloxetine 30 mg capsule,delayed 30 mg PO DAILY 01/23/22 08/10/24 08/09/24 History release duloxetine 60 mg capsule,delayed 60 mg PO DAILY 01/23/22 08/10/24 08/09/24 History release gabapentin 600 mg tablet 1 tab PO TID 01/23/22 08/10/24 08/09/24 History losartan 100 mg tablet 1 tab PO DAILY 01/23/22 08/10/24 08/09/24 History dulaglutide 0.75 mg/0.5 mL 0.75 mg subcut QWEEK 08/05/24 08/10/24 08/08/24 History subcutaneous pen injector (Trulicity) Exam Pertinent Lab Results Pertinent Lab Results: CMP and CBC 06/2024 from [facility] A1C = 8.4 Assessment and Plan Assessment Anesthesia Assessment: Chart Reviewed Final Anesthetic Review Family History of Problems with Anesthesia: No History of Problems with Anesthesia: No Documented by User: Maco David MD 08/10/24 11:10 [facility] Past Medical History Medical History Fatty liver History of chemotherapy Arthritis of spine Back pain Hx of diarrhea Diabetes History of headache TAMARA (obstructive sleep apnea) Elevated cholesterol HTN (hypertension) Cognitive capacity: normal Functional capacity: independent ambulation Surgical History Surgical History Hx of varicose vein ligation and stripping History of lumpectomy of right breast History of lumpectomy of left breast History of kidney surgery History of nephrectomy, left Social History Social History Are you a primary children's zoo caretaker to a significant other at home: No Do you presently have visiting nurse or other home services: No Patient Tobacco Use Status: Former Tobacco user Tobacco use type: Cigarette Second Hand Smoke Exposure: No Use of substances other than those prescribed or required for medical reasons: No Have you been hit, kicked, punched, or otherwise hurt by someone within the past year? If so, by whom?: No Are you DNR?: No Advance Directives: No Advance Directives Information Provided: No Advance Directives on File: No Patient : No : No Poor oral hygiene: No Meds Allergies Allergy/AdvReac Type Severity Reaction Status Date / Time amoxicillin Allergy Rash Verified 08/08/24 14:40 Iodinated Contrast Media Allergy Rash, [place] Verified 08/08/24 14:40 [Contrast Dye] like Blood Boiling nickel Allergy Rash Verified 08/08/24 14:40 rubber, unspecified Allergy + Rxn from Verified 08/08/24 14:40 allergy testing Sulfa (Sulfonamide Allergy Swelling Verified 08/08/24 14:40 Antibiotics) Home Medications ?Medication ?Instructions ?Recorded ?Confirmed ?Last Taken ?Type anastrozole 1 mg tablet 1 tab PO DAILY 01/23/22 08/10/24 08/09/24 History carvedilol 25 mg tablet 2 tab PO BID 01/23/22 08/10/24 08/09/24 History duloxetine 30 mg capsule,delayed 30 mg PO DAILY 01/23/22 08/10/24 08/09/24 History release duloxetine 60 mg capsule,delayed 60 mg PO DAILY 01/23/22 08/10/24 08/09/24 History release gabapentin 600 mg tablet 1 tab PO TID 01/23/22 08/10/24 08/09/24 History losartan 100 mg tablet 1 tab PO DAILY 01/23/22 08/10/24 08/09/24 History dulaglutide 0.75 mg/0.5 mL 0.75 mg subcut QWEEK 08/05/24 08/10/24 08/08/24 History subcutaneous pen injector ([facility]) Exam Exam Date and Time: 08/10/2024 Assessment and Plan Final Anesthetic Review NPO: Yes ASA Class: III Final Preanesthetic Review: No Changes in Pt Med Stat, Meds/Allgs Chart Reviewed, Consent Obtained/Reviewed and Anes Risks/Benef Reviewed Patient Risk: Intermediate Procedure Risk: Low Anesthetic Plan Anesthetic Plan: MAC: and Regional Block Disposition: Standard PACU and Inp. Admit - Standard Bed
[2024-08-10] VITALS (17 sets, daily range): BP systolic 111–162; BP diastolic 55–88; PULSE 92–119; RESP 16–20; TEMP 36.1–36.9; O2SAT 92–100; BMI 34.1
--- NOTE | ~2024-08-10 | FL_ITS ---
EXAMINATION: FL GUIDANCE ONLY HISTORY: right ankle ORIF COMPARISON: Correlation is made with plain films of the right ankle dated 08/05/2024. TECHNIQUE: Fluoroscopy time: 0.2 minutes. Cumulative Dose: 0.539 mGy. DAP: 0.40004 mGym2 Images: 4. FINDINGS: Fluoroscopic spot films of the right ankle demonstrate internal fixation of the previously noted fracture of the distal fibula with a sideplate and multiple orthopedic screws. There is also internal fixation of the previously seen fracture of the medial malleolus with 2 screws FL/FL guidance in OR IMPRESSION: Fluoroscopy during procedure. Please see procedure report for additional information. Electronically signed by: Christiano Senior MD 08/11/2024 07:04 AM EDT
--- NOTE | 2024-08-10 10:26 | ECG_ITS ---
Test Reason : PREOP Blood Pressure : */* mmHG Vent. Rate : 99 BPM Atrial Rate : 99 BPM P-R Int : 170 ms QRS Dur : 90 ms QT Int : 344 ms P-R-T Axes : 71 -23 71 degrees QTcB Int : 441 ms Normal sinus rhythm Minimal voltage criteria for LVH, may be normal variant ( [place] product ) Septal infarct , age undetermined Abnormal ECG No previous ECGs available Referred By: Lola Marte Electronically Signed By: SHAY MURILLO
--- NOTE | 2024-08-10 10:27 | P.HPSUR_ITS ---
Pre-Procedural Eval Section A - 24 Hr Update-Section A only Date of Service: 08/10/24 The patient is an INPATIENT: No Changes since office visit: No Cold of Flu in the past 2 weeks, No New Medical Problems, No Changes in Medication and No Patient answered all questions The patient has been examined within 24 hours of the surgical procedure. The History & Physical has been completed within 30 days and I have reviewed it.: Yes Section B - Complete if H&P > 30 days Chief Complaint: Displaced bimalleolar fracture of right lower leg, Allergies: Allergies Allergy/AdvReac Type Severity Reaction Status Date / Time amoxicillin Allergy Rash Verified 08/08/24 14:40 Iodinated Contrast Media Allergy Rash, [place] Verified 08/08/24 14:40 [Contrast Dye] like Blood Boiling nickel Allergy Rash Verified 08/08/24 14:40 rubber, unspecified Allergy + Rxn from Verified 08/08/24 14:40 allergy testing Sulfa (Sulfonamide Allergy Swelling Verified 08/08/24 14:40 Antibiotics) Plan I have reviewed the history and physical and performed a pertinent physical examination on my patient. No changes have occurred unless specified. Time Spent With Patient Time: Total time managing care of this patient today ____ minutes.
[2024-08-10] MEDS: Lactated Ringers 1,000 ML 100 ML IVCONT ×2 (10:44→21:54)
[2024-08-10] MEDS: ceFAZolin Sodium/Dextrose,Iso 2 GM/50 ML PIGGYBACK IV (11:56)
[2024-08-10] MEDS: Acetaminophen 1,000 MG/100 ML PIGGYBACK 400 MG IV ×2 (12:35→21:55)
--- NOTE | 2024-08-10 13:25 | P.BOP_ITS ---
Brief Operative Note Date of Service: 08/10/24 Pre-op diagnosis: Right bimalleolar ankle fracture Post-op diagnosis: same Procedure: ORIF right bimalleolar ankle fracture Implants: Pangea lateral malleolar plate x 1 2 40 mm 4.0 cannulated partially threaded cancellous screws x 2 Surgeon: Malick Clifford MD Anesthesia: GETA and regional Was an Medical Oncology Physician used for this Procedure?: Yes Medical Oncology Physician: Brittany Tilley Estimated blood loss (mL): 25 Tourniquet time (min): 45 IV fluids (mL): 750 Pathology: none sent Condition: stable Disposition: PACU
--- NOTE | 2024-08-10 16:34 | PC.NURSE ---
Confirmed with Brittany REAVES via [employer] message that a post op dose of cefazolin is not needed for this patient.
[2024-08-10 17:15] LABS: Glucose, Whole Blood 110 mg/dL (60-115)
--- NOTE | 2024-08-10 19:01 | PHA.MEDREC ---
Addendum entered by Gladys Leone RPh 08/10/24 19:20: reviewed by [facility] Original Note: Pharmacy Consult ? Medication Reconciliation Pharmacy has completed the medication reconciliation. Spoke with pt and daughter at bedside. Pt has Rx bottles on hand for Carvedilol 25mg tab (pt confirmed 3 tabs BID) and Gabapentin 600mg (Pt confirming 1 tab TID). Pt confirmed her Trulicity once a week on Mondays and confirmed she took it this past Thursday. Pt daughter confirmed her mom had started taking the Oxycodone 5mg tab when she got Dc 07/30 but stopped it this past weekend (SA-WHALEY) due to some concerns the family has when the pt takes that medication. Pt confirmed she was taking Vitamin B12 tabs but states she ran out of it about 1 month ago and never got more to continue that medication and does not remember the dose.
[2024-08-10 20:35] LABS: Glucose, Whole Blood 227 mg/dL (60-115)
[2024-08-10] MEDS: Aspirin 325 MG TABLET PO (21:55)
[2024-08-10] MEDS: carvediloL 25 MG TABLET 75 MG PO (21:55)
[2024-08-10] MEDS: Gabapentin 600 MG TABLET PO (21:56)
[2024-08-10] MEDS: Insulin Lispro 100 UNIT/ML 3 ML VIAL SUBCUT (21:56)
[2024-08-11] VITALS (8 sets, daily range): BP systolic 130–158; BP diastolic 65–99; PULSE 94–105; RESP 14–18; TEMP 35.8–37; O2SAT 92–94
--- NOTE | 2024-08-11 00:13 | HO.PM.IMCN ---
History of Present Illness Data of Consult Service Date: 08/11/24 Requesting physician: Brittany Tilley Primary Care Provider: Nicky Cardona MD HPI Reason for consult: Medical management patient is a 73-year-old female with a past medical history significant for hypertension, type 2 diabetes on Trulicity, hyperlipidemia, history of breast cancer and class 2 obesity, s/p right ORIF ankle yesterday. Currently she has a medical complaints, she denies any chest pain, shortness of breath, nausea or vomiting. He is having no pain in the right lower extremity and reports she has no sensation currently. Medical history and medications were reviewed with the patient. Review of Systems Constitutional: Constitutional: Denies chills, Denies fatigue and Denies fever(s) Eyes: Eyes: Denies change in vision and Denies photophobia ENT: Denies nasal congestion, Denies nasal discharge and Denies sore throat Cardiovascular: Cardiovascular: Denies chest pain, Denies rapid heart rate and Denies dyspnea Respiratory: Respiratory: Denies chest congestion, Denies cough, Denies dyspnea and Denies wheezing Gastrointestinal: Gastrointestinal: Denies diarrhea, Denies nausea and Denies vomiting Genitourinary: Genitourinary: Denies difficulty voiding, Denies dysuria and Denies urinary urgency Musculoskeletal: Musculoskeletal: Reports as per HPI Integumentary/Breasts: Skin/Breast: Denies rash Neurologic: Denies confusion Psychiatric: Psychiatric: Denies confusion Endocrine: Endocrine: Denies fatigue Hematologic/Lymphatic: Hematologic/Lymphatic: Denies easy bleeding and Denies easy bruising Allergic/Immunologic: Allergic/Immunologic: Denies wheezing [facility] Medical History Fatty liver History of chemotherapy Arthritis of spine Back pain Hx of diarrhea Diabetes History of headache TAMARA (obstructive sleep apnea) Elevated cholesterol HTN (hypertension) Functional capacity: independent ambulation Surgical History Hx of varicose vein ligation and stripping History of lumpectomy of right breast History of lumpectomy of left breast History of kidney surgery History of nephrectomy, left Social History Are you a primary complex care nurse to a significant other at home: No Do you presently have visiting nurse or other home services: No Comment: COUNTS CORRECT Patient Tobacco Use Status: Former Tobacco user Tobacco use type: Cigarette Second Hand Smoke Exposure: No Narrative: No smoking, alcohol or drug use Meds Allergies Allergy/AdvReac Type Severity Reaction Status Date / Time amoxicillin Allergy Rash Verified 08/08/24 14:40 Iodinated Contrast Media Allergy Rash, [place] Verified 08/08/24 14:40 [Contrast Dye] like Blood Boiling nickel Allergy Rash Verified 08/08/24 14:40 rubber, unspecified Allergy + Rxn from Verified 08/08/24 14:40 allergy testing Sulfa (Sulfonamide Allergy Swelling Verified 08/08/24 14:40 Antibiotics) Active Medications: Current Medications Acetaminophen (Acetaminophen 325 Mg Tablet) 650 mg PO Q6H PRN PRN Reason: Pain, Mild 1-3,fever,headache Anastrozole (Anastrozole 1 Mg Tablet) 1 mg PO DAILY [facility] Aspirin (Aspirin 325 Mg Tablet) 325 mg PO BID [facility] Last Admin: 08/10/24 21:55 Dose: 325 mg Carvedilol (Carvedilol 25 Mg Tablet) 75 mg PO BID [facility]; Protocol Last Admin: 08/10/24 21:55 Dose: 75 mg Dextrose (Dextrose 50 % 25 Gm/50 Ml Syringe) 25 gm IVPUSH Q15M PRN; Protocol PRN Reason: per Hypoglycemia Standing Ord. Duloxetine HCl (Duloxetine Hcl 30 Mg Capsule.Dr) 30 mg PO DAILY [facility] Duloxetine HCl (Duloxetine Hcl 60 Mg Capsule.Dr) 60 mg PO DAILY [facility] Gabapentin (Gabapentin 600 Mg Tablet) 600 mg PO TID [facility] Last Admin: 08/10/24 21:56 Dose: 600 mg Glucose (Glucose Gel 15 Gm Gel..Gram.) 15 gm PO Q15M PRN; Protocol PRN Reason: per Hypoglycemia Standing Ord. Lactated Ringer's (Lr) 1,000 mls @ 100 mls/hr IVCONT .Q10H [facility] Last Admin: 08/10/24 21:54 Dose: 100 mls/hr Lactated Ringer's (Lr) 500 mls @ 20 mls/hr IVCONT .Q24H [facility] Last Admin: 08/10/24 21:53 Dose: Not Given Lactated Ringer's (Lr) 1,000 mls @ 100 mls/hr IVCONT .Q10H [facility] Last Admin: 08/10/24 23:50 Dose: Not Given Acetaminophen (Ofirmev) 1,000 mg in 100 mls @ 400 mls/hr IV Q6H [facility] Stop: 08/11/24 15:14 Last Infusion: 08/10/24 22:14 Dose: Infused Insulin Human Lispro (Insulin Lispro 100 Unit/Ml 3 Ml Vial) 0 unit SUBCUT QIDACHS [facility]; Protocol Last Admin: 08/10/24 21:56 Dose: 4 unit Losartan Potassium (Losartan Potassium 50 Mg Tablet) 100 mg PO DAILY [facility]; Protocol Magnesium Hydroxide (Milk Of Magnesia 30 Ml Oral.Susp) 30 ml PO DAILY PRN PRN Reason: Constipation Melatonin (Melatonin 3 Mg Tablet) 6 mg PO BEDTIME PRN PRN Reason: Insomnia Naloxone HCl (Naloxone Hcl 0.4 Mg/Ml Vial) 0.04 mg IVPUSH Q5M PRN PRN Reason: Excessive sedation or RR < 8 Non-Formulary Medication (Dulaglutide [Trulicity]) 0.75 mg SUBCUT QWEEK [facility] Ondansetron HCl (Ondansetron Hcl 4 Mg/2 Ml Vial) 4 mg IVPUSH Q8H PRN PRN Reason: Nausea and Vomiting Oxycodone HCl (Oxycodone Hcl Immed Release 5 Mg Tablet) 5 mg PO Q4H PRN PRN Reason: Pain, Moderate(Pain Scale 4-6) Sodium Chloride (0.9 % Sodium Chloride Flush 3 Ml Syringe) 3 ml IVFLUSH QSHIFT [facility] Last Admin: 08/10/24 21:54 Dose: Not Given Home Medications ?Medication ?Instructions ?Recorded ?Confirmed ?Last Taken ?Type anastrozole 1 mg tablet 1 tab PO BEDTIME 01/23/22 08/10/24 08/09/24 History carvedilol 25 mg tablet 3 tab PO BID 01/23/22 08/10/24 08/09/24 History duloxetine 30 mg capsule,delayed 30 mg PO DAILY 01/23/22 08/10/24 08/09/24 History release duloxetine 60 mg capsule,delayed 60 mg PO DAILY 01/23/22 08/10/24 08/09/24 History release gabapentin 600 mg tablet 1 tab PO TID 01/23/22 08/10/24 08/09/24 History losartan 100 mg tablet 1 tab PO DAILY 11/08/10/24 08/09/24 History dulaglutide 0.75 mg/0.5 mL 0.75 mg subcut [place] 08/05/24 08/10/24 08/08/24 History subcutaneous pen injector (Trulicity) acetaminophen 650 mg 1,300 mg PO Q8H PRN Pain 08/10/24 08/10/24 Unknown History tablet,extended release cholecalciferol (vitamin D3) 50 50 mcg PO DAILY 08/10/24 08/10/24 08/09/24 History mcg (2,000 unit) tablet (Vitamin D3) ihazjnzp-blufkbc-agia-lutein tablet 1 tab PO DAILY 08/10/24 08/10/24 08/09/24 History Physical Exam Vital Signs and Narrative: Vital Signs: Last Vital Signs Temp 97.6 F 08/10/24 23:39 Pulse 119 H 08/10/24 23:39 Resp 18 08/10/24 23:39 BP 129/60 08/10/24 23:39 Pulse Ox 92 08/10/24 23:39 O2 Del Method Room Air 08/10/24 23:39 O2 Flow Rate 2 08/10/24 18:30 BMI result Body Mass Index 34.1 General: AOx3, no acute distress Resp: CTA bilaterally CVS: S1, S2, RRR GI: +BS, NT, no distention Skin: Warm, dry Neuro: Cranial nerves II-XII grossly intact bilaterally. Motor grossly intact bilaterally Extremities: right lower leg casted, normal capillary refill, able to move toes, no sensation yet. Left lower extremity with pneumoboots present, normal sensation and motor. Psych: Appropriate affect Const: General: No confusion Orientation/consciousness: No confusion Eyes: Direct Ophthalmoscopy: No photophobia Neuro: General: No confusion Results Labs Labs: Laboratory Results - last 24 hr 08/10/24 08/10/24 10:42 20:17 POC Glucose 110 227 H Assessment and Plan (1) Bimalleolar fracture of right ankle: Status: Acute Plan patient is a 73-year-old female with a past medical history significant for hypertension, type 2 diabetes on Trulicity, hyperlipidemia, history of breast cancer and class 2 obesity, s/p right ORIF ankle yesterday, Hospitalist consult placed for medical management. S/p right ORIF ankle for bimalleolar fracture right ankle - postop day 1 - pain well-controlled, no sensation yet in right lower leg - normal capillary refill and motor intact - plan per surgery hypertension - continue carvedilol and losartan type 2 diabetes - sliding scale insulin - diabetic diet HLD - no home meds history breast cancer - continue anastrozole class 2 obesity - BMI 34.1 - weight loss encouraged Thank you for allowing me to participate in the pt's care. signing off for now.Please contact the medical team if any questions or concerns.
[2024-08-11] MEDS: Acetaminophen 1,000 MG/100 ML PIGGYBACK 400 MG IV ×3 (03:48→15:29)
--- NOTE | 2024-08-11 05:04 | PC.NURSE ---
Patient has fungal rash to right groin. Nystatin powder ordered.
[2024-08-11 06:09] LABS: MANUAL DIFF FLAG NO
[2024-08-11 06:22] LABS: Basophils Percent Auto 0.2 % (0-2); Hematocrit 29.6 % (37.0-47.0); Hemoglobin 9.5 g/dl (12.0-16.0); Imm Gran Abs Auto 0.15 X10*3/uL (0.00-0.03); Imm Gran Pct Auto 1.3 % (0.0-0.4); Lymphocytes Absolute Auto 0.8 X10*3/uL (1.2-4.9); Lymphocytes Percent Auto 6.9 % (20-40); Mean Corpuscular HGB Conc 32.1 g/dl (31.0-35.0); Mean Corpuscular Hemoglobin 29.1 pg (27.0-33.0); Mean Corpuscular Volume 90.5 fL (80.0-98.0); Mean Platelet Volume 9.7 fL (9.4-12.3); Monocytes Absolute Auto 0.7 X10*3/uL (0.1-1.2); Monocytes Percent Auto 6.5 % (2-11); Neutrophils Absolute Auto 9.6 x10*3/uL (2.0-8.3); Neutrophils Percent Auto 85.1 % (45-73); Platelet Count 316 X10*3/uL (160-400); Red Blood Count 3.27 X10*6/uL (4.20-5.50); White Blood Count 11.3 X10*3/uL (4.8-10.8)
[2024-08-11 06:29] LABS: Anion Gap 16 (12-20); Blood Urea Nitrogen 30 mg/dL (9-16); Calcium 9.2 mg/dL (8.4-10.2); Carbon Dioxide 26 mmol/L (22-29); Chloride 103 mmol/L (96-108); Estimated Glomerular Filt Rate 44; Glucose Fasting 203 mg/dL (60-99); Potassium 4.5 mmol/L (3.3-5.1); Sodium 140 mmol/L (135-145)
[2024-08-11 07:30] LABS: Glucose, Whole Blood 153 mg/dL (60-115)
--- NOTE | 2024-08-11 07:40 | PM.PNORT ---
Subjective Subjective Date of Service: 08/11/24 Interval history: Postop day 1 status post right ankle ORIF Patient resting comfortably in bed No acute events overnight Pain well managed No other acute complaints or concerns at this time Physical Exam Vital Signs: Vital Signs: Last Vital Signs Temp 97.8 F 08/11/24 04:26 Pulse 105 H 08/11/24 04:26 Resp 18 08/11/24 04:26 BP 146/69 H 08/11/24 04:26 Pulse Ox 92 08/11/24 04:26 O2 Del Method Room Air 08/11/24 04:26 O2 Flow Rate 2 08/10/24 18:30 BMI result Body Mass Index 34.1 Extrem: Other: Splint on right ankle clean, dry, intact No evidence of surrounding erythema, ecchymosis No evidence of infection Patient is able to flex and extend the digits of the left foot without difficulty Compartments soft, nontender Distal sensation greatly diminished, likely secondary to nerve block Capillary refill brisk Procedures Date of Service Date of Service: 08/11/24 Progress Note: A&P Assessment and plan (1) Bimalleolar fracture of right ankle: Status: Acute Plan 1. Status post right ankle ORIF Continue pain management Start PT/OT Continue aspirin for DVT prophylaxis Anticipate need for rehab placement after PT eval Dispo planning-PT/OT, pain management, medical clearance Time Spent With Patient Time: Total time managing care of this patient today ____ minutes. Quality Stroke Does the patient have a stroke diagnosis?: No VTE Prior VTE?: No VTE Risk Level:: Surgical - high VTE Device Contraindication: N/A - Device Ordered VTE Drug Contraindication: N/A - Med Ordered
--- NOTE | 2024-08-11 08:04 | HO.POSTANES ---
Post Anesthesia Evaluation Post Anesthesia Evaluation Date of Service: 08/11/24 Vital Signs: Vital Signs Temp Pulse Resp BP Pulse Ox O2 Del Method 08/11/24 07:48 97.3 F 100 17 158/67 H 92 Room Air 08/11/24 04:26 97.8 F 105 H 18 146/69 H 92 Room Air 08/10/24 23:39 97.6 F 119 H 18 129/60 92 Room Air 08/10/24 21:49 98.4 F 115 H 18 150/72 H 93 Room Air Anesthesia: Regional and General Endotracheal-GETA Mental Status: Awake Pain Control: Satisfactory Nausea/Vomiting: None Hydration: Adequate Anesthesia-Related Issues: No Anes. Related Issues
[2024-08-11] MEDS: Insulin Lispro 100 UNIT/ML 3 ML VIAL SUBCUT ×2 (08:50→16:48)
[2024-08-11] MEDS: carvediloL 25 MG TABLET 75 MG PO ×2 (08:51→22:01)
[2024-08-11] MEDS: Aspirin 325 MG TABLET PO ×2 (08:51→22:02)
[2024-08-11] MEDS: DULoxetine HCl 60 MG CAPSULE.DR PO (08:52)
[2024-08-11] MEDS: Losartan Potassium 50 MG TABLET 100 MG PO (08:52)
[2024-08-11] MEDS: DULoxetine HCl 30 MG CAPSULE.DR PO (08:52)
[2024-08-11] MEDS: Anastrozole 1 MG TABLET PO (08:52)
[2024-08-11] MEDS: Gabapentin 600 MG TABLET PO ×3 (08:52→22:02)
[2024-08-11] MEDS: Lactated Ringers 1,000 ML 100 ML IVCONT (09:03)
[2024-08-11 11:22] LABS: Glucose, Whole Blood 140 mg/dL (60-115)
[2024-08-11] MEDS: Nystatin Powder 15 GM BOTTLE 1 APPL TOPICAL ×2 (12:40→22:03)
--- NOTE | 2024-08-11 16:05 | MHC.CM.PN ---
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
[2024-08-11 16:37] LABS: Glucose, Whole Blood 155 mg/dL (60-115)
[2024-08-11] MEDS: 0.9 % Sodium Chloride Flush 3 ML SYRINGE IVFLUSH ×2 (17:04→22:03)
[2024-08-11 21:15] LABS: Glucose, Whole Blood 106 mg/dL (60-115)
[2024-08-11] MEDS: Acetaminophen 325 MG TABLET 650 MG PO (22:02)
[2024-08-12] VITALS (8 sets, daily range): BP systolic 117–158; BP diastolic 54–95; PULSE 75–92; RESP 14–18; TEMP 36.1–36.7; O2SAT 93–96
[2024-08-12 06:04] LABS: MANUAL DIFF FLAG NO
[2024-08-12 06:23] LABS: Anion Gap 11 (12-20); Blood Urea Nitrogen 26 mg/dL (9-16); Carbon Dioxide 29 mmol/L (22-29); Chloride 106 mmol/L (96-108); Estimated Glomerular Filt Rate 57; Glucose Fasting 102 mg/dL (60-99); Potassium 4.3 mmol/L (3.3-5.1); Sodium 142 mmol/L (135-145)
[2024-08-12 06:28] LABS: Basophils Percent Auto 0.3 % (0-2); Eosinophils Percent Auto 0.3 % (0-4); Hematocrit 27.2 % (37.0-47.0); Hemoglobin 8.7 g/dl (12.0-16.0); Imm Gran Abs Auto 0.11 X10*3/uL (0.00-0.03); Imm Gran Pct Auto 1.2 % (0.0-0.4); Lymphocytes Absolute Auto 2.2 X10*3/uL (1.2-4.9); Lymphocytes Percent Auto 22.8 % (20-40); Mean Corpuscular Volume 90.7 fL (80.0-98.0); Mean Platelet Volume 9.4 fL (9.4-12.3); Monocytes Absolute Auto 0.9 X10*3/uL (0.1-1.2); Monocytes Percent Auto 9.5 % (2-11); NRBC Pct Auto 0.2 /100WBC (0.0-0.2); Neutrophils Absolute Auto 6.2 x10*3/uL (2.0-8.3); Neutrophils Percent Auto 65.9 % (45-73); Platelet Count 300 X10*3/uL (160-400); Red Cell Distribution Width 14.5 % (11.0-16.0); White Blood Count 9.4 X10*3/uL (4.8-10.8)
[2024-08-12 07:47] LABS: Glucose, Whole Blood 94 mg/dL (60-115)
[2024-08-12] MEDS: Losartan Potassium 50 MG TABLET 100 MG PO (08:16)
[2024-08-12] MEDS: Gabapentin 600 MG TABLET PO ×2 (08:16→16:20)
[2024-08-12] MEDS: DULoxetine HCl 60 MG CAPSULE.DR PO (08:16)
[2024-08-12] MEDS: DULoxetine HCl 30 MG CAPSULE.DR PO (08:16)
--- NOTE | 2024-08-12 08:16 | PM.PNORT ---
Subjective Subjective Date of Service: 08/12/24 Interval history: Postop day 2 status post right ankle ORIF Patient resting comfortably in bed No acute events overnight Pain well managed No other acute complaints or concerns at this time Physical Exam Vital Signs: Vital Signs: Last Vital Signs Temp 97.5 F 08/12/24 07:42 Pulse 85 08/12/24 07:42 Resp 14 08/12/24 07:42 BP 130/77 08/12/24 07:42 Pulse Ox 93 08/12/24 07:42 O2 Del Method Room Air 08/12/24 07:42 O2 Flow Rate 2 08/10/24 18:30 BMI result Body Mass Index 34.1 Extrem: Other: Splint on right ankle clean, dry, intact Patient is able to flex and extend the digits of the left foot without difficulty Capillary refill brisk Procedures Date of Service Date of Service: 08/12/24 Progress Note: A&P Assessment and plan (1) Bimalleolar fracture of right ankle: Status: Acute Plan 1. Status post right ankle ORIF Continue pain management PT/OT-NWB RLE Continue aspirin for DVT prophylaxis Anticipate need for rehab placement after PT eval Dispo planning-awaiting STR approval Time Spent With Patient Time: Total time managing care of this patient today ____ minutes. Quality Stroke Does the patient have a stroke diagnosis?: No VTE Prior VTE?: No VTE Risk Level:: Surgical - high VTE Device Contraindication: N/A - Device Ordered VTE Drug Contraindication: N/A - Med Ordered
[2024-08-12] MEDS: Aspirin 325 MG TABLET PO (08:17)
[2024-08-12] MEDS: carvediloL 25 MG TABLET 75 MG PO (08:17)
[2024-08-12] MEDS: Anastrozole 1 MG TABLET PO (08:18)
--- NOTE | 2024-08-12 08:18 | P.DS_ITS ---
DS: Providers Provider Date of Service: 08/12/24 <ISABEL Yang Last Filed: 08/12/24 08:22> Date of discharge: 08/12/24 <ISABEL Yang Last Filed: 08/12/24 08:22> Primary care physician: Nicky Cardona MD <ISABEL Yang Last Filed: 08/12/24 08:22> Consults: 08/10/24 13:49 Consult to Hospitalist Routine Comment: Consulting Provider: [facility] Hospitalists Reason For Exam: Routine medical management <ISABEL Yang Last Filed: 08/12/24 08:22> DS: Diagnosis Discharge Diagnosis (1) Bimalleolar fracture of right ankle: Status: Acute <ISABEL Yang Last Filed: 08/12/24 08:22> DS: Summary Hospital Course Hospital Course: The patient underwent a successful ORIF right ankle on 08/10/24, was transferred to PACU and then to the floor to recover. During their stay, their vitals were stable, afebrile at 97.5. Labs were unremarkable, H/H 8.7/27.2. She is on ASA 325mg po bid bin dvt ppx. Physical therapy should include gait training, NWB RLE, upper body conditioning Prior to discharge, splint was clean dry and intact. Splint should remain on at all times. It is important to elevate the ankle above heart level on 3 pillows Plan is to be DC to [facility] <ISABEL Yang Last Filed: 08/12/24 08:22> Time Attestation Discharge Coordination Time (in mins): 30 <ISABEL Bhatt Last Filed: 08/12/24 15:09> Quality: Safe Use of Opioids Does Pt have an Active Cancer Diagnosis on the Problem List?: No <ISABEL Bhatt Last Filed: 08/12/24 15:09> Quality: Stroke Does the patient have a stroke diagnosis?: No <ISABEL Bhatt Last Filed: 08/12/24 15:09> Physical Exam Vital Signs: Vital Signs: Last Vital Signs Temp 97.5 F 08/12/24 07:42 Pulse 85 08/12/24 07:42 Resp 14 08/12/24 07:42 BP 130/77 08/12/24 07:42 Pulse Ox 93 08/12/24 07:42 O2 Del Method Room Air 08/12/24 07:42 O2 Flow Rate 2 08/10/24 18:30 BMI result Body Mass Index 34.1 <Lissette Ramírez PA-C - Last Filed: 08/12/24 08:22> Extrem: Other: Splint on right ankle clean, dry, intact Patient is able to flex and extend the digits of the left foot without difficulty Capillary refill brisk <Brittany Tilley PA-C - Last Filed: 08/12/24 15:09> DS: Data Data Completed and Pending Labs on day of discharge: Laboratory Results - last 24 hr 08/11/24 08/11/24 08/11/24 11:18 16:28 20:56 WBC RBC Hgb Hct MCV MCH MCHC RDW Plt Count MPV Immature Gran % (Auto) Neut % (Auto) Lymph % (Auto) [place] % (Auto) Eos % (Auto) Baso % (Auto) Lymph # (Auto) [place] # (Auto) Eos # (Auto) Baso # (Auto) Abs Immat Gran (auto) Absolute Neuts (auto) Absolute Nucleated RBC Nucleated RBC % (auto) Sodium Potassium Chloride Carbon Dioxide Anion Gap BUN Creatinine Estim Creat Clear Calc Estimated GFR POC Glucose 140 H 155 H 106 Fasting Glucose Calcium 08/12/24 08/12/24 05:05 07:41 WBC 9.4 RBC 3.00 L Hgb 8.7 L Hct 27.2 L MCV 90.7 MCH 29.0 MCHC 32.0 RDW 14.5 Plt Count 300 MPV 9.4 Immature Gran % (Auto) 1.2 H Neut % (Auto) 65.9 Lymph % (Auto) 22.8 [place] % (Auto) 9.5 Eos % (Auto) 0.3 Baso % (Auto) 0.3 Lymph # (Auto) 2.2 [place] # (Auto) 0.9 Eos # (Auto) 0.0 Baso # (Auto) 0.0 Abs Immat Gran (auto) 0.11 H Absolute Neuts (auto) 6.2 Absolute Nucleated RBC 0.020 H Nucleated RBC % (auto) 0.2 Sodium 142 Potassium 4.3 Chloride 106 Carbon Dioxide 29 Anion Gap 11 L BUN 26 H Creatinine 0.96 Estim Creat Clear Calc 65.0 Estimated GFR 57 POC Glucose 94 Fasting Glucose 102 H Calcium 9.0 <Lissette Ramírez PA-C - Last Filed: 08/12/24 08:22> Discharge Plan Discharge Patient Disposition: Xfer SNF <Lissette Ramírez PA-C - Last Filed: 08/12/24 08:22> Referrals: Brittany Tilley PA-C [Physician Lubricating Specialist] - 08/16/24 11:45 am <Lissette Ramírez PA-C - Last Filed: 08/12/24 08:22> Discharge Medications: New oxycodone 5 mg Tablet 5 mg PO Q4H PRN (Reason: Pain, Moderate(Pain Scale 4-6)) 7 Days Qty: 42 0RF Rx Instructions: Partial Fill upon patient request. aspirin 325 mg Tablet 325 mg PO BID 30 Days Qty: 60 0RF Continued anastrozole 1 mg tablet 1 tab PO BEDTIME gabapentin 600 mg tablet 1 tab PO TID losartan 100 mg tablet 1 tab PO DAILY duloxetine 30 mg capsule,delayed release(DR/EC) 30 mg PO DAILY duloxetine 60 mg capsule,delayed release(DR/EC) 60 mg PO DAILY carvedilol 25 mg tablet 3 tab PO BID acetaminophen 650 mg Tablet Extended Release 1,300 mg PO Q8H PRN (Reason: Pain) [id number] Tablet 1 tab PO DAILY cholecalciferol (vitamin D3) [Vitamin D3] 50 mcg (2,000 unit) Tablet 50 mcg PO DAILY Trulicity 0.75 mg/0.5 mL pen injector 0.75 mg subcut MO <Lissette Ramírez PA-C - Last Filed: 08/12/24 08:22> Discharge Orders: Discharge Order (Routine); Ordered 08/12/24 Ordered By: Brittany Tilley <Lissette Ramírez PA-C - Last Filed: 08/12/24 08:22> Diet: Advance to usual diet <Lissette Ramírez PA-C - Last Filed: 08/12/24 08:22> Advance to usual diet <ISABEL Bhatt Last Filed: 08/12/24 15:09> Activity on Discharge: Use Splints or Immobilizers <ISABEL Yang Last Filed: 08/12/24 08:22> Use Splints or Immobilizers <ISABEL Bhatt Last Filed: 08/12/24 15:09> Stand Alone Forms: Patient Portal Discharge page <ISABEL Yang Last Filed: 08/12/24 08:22> Activity Restrictions/Additional Instructions: Keep splint clean, dry, and intact Elevate on three pillows above heart level throughout the day Do not bathe or shower--keep splint dry NWB RLE Call [facility] orthopedics with any questions or concerns. Follow up with orthopedics in 7-10 days post op <ISABEL Yang Last Filed: 08/12/24 08:22> Print Language: Albanian <ISABEL Yang Last Filed: 08/12/24 08:22>
[2024-08-12] MEDS: 0.9 % Sodium Chloride Flush 3 ML SYRINGE IVFLUSH (08:20)
[2024-08-12] MEDS: Nystatin Powder 15 GM BOTTLE 1 APPL TOPICAL (10:24)
[2024-08-12 11:22] LABS: Glucose, Whole Blood 164 mg/dL (60-115)
[2024-08-12] MEDS: Insulin Lispro 100 UNIT/ML 3 ML VIAL SUBCUT (11:53)
--- NOTE | 2024-08-12 15:19 | MHC.CM.PN ---
PT DCING TO [facility] TODAY AT 5:30 DGTER AWARE
[2024-08-12 16:16] LABS: Glucose, Whole Blood 92 mg/dL (60-115)
[2024-08-12] MEDS: Acetaminophen 325 MG TABLET 650 MG PO (16:25)
--- NOTE | 2024-08-16 14:00 | W.PM.OPN ---
Operative Note Operative Note Date of Service: 08/10/24 Narrative: Date of Service: 08/10/24 Pre-op diagnosis: Right bimalleolar ankle fracture Post-op diagnosis: same Procedure: ORIF right bimalleolar ankle fracture Implants: Pangea lateral malleolar plate x 1 2 40 mm 4.0 cannulated partially threaded cancellous screws x 2 Surgeon: Malick Clifford MD Anesthesia: GETA and regional Was an Shore Hand Dredge Or Barge used for this Procedure?: Yes Shore Hand Dredge Or Barge: Brittany Tilley Estimated blood loss (mL): 25 Tourniquet time (min): 45 IV fluids (mL): 750 Pathology: none sent Condition: stable Disposition: PACU Procedure in detail: Patient was brought to the operating room and placed supine on the operative table. All bony prominences were well padded and a time-out was called to identify proper site proper procedure proper surgeon. IV antibiotics per weight were administered. I began by exsanguinating limb is slightly tourniquet to 300 mm Hg. I then made a standard posterolateral incision over the fibula. Full-thickness flaps were taken down to the fibular shaft and distal fibula. The fracture was identified and cleaned with a combination of curette, rongeur and irrigation. A lobster claw was used to provisionally reduce the fracture and a 6 hole distal fibular locking plate was applied using standard AO technique. Biplanar fluoroscopy was used to confirm hardware position and fracture reduction. Once I was satisfied that both of these were acceptable I irrigated copiously and turned my attention to the medial side. The transverse medial malleolar fracture was identified after skin incision. Full-thickness skin flaps were developed and, With a sharp tenaculum, the fracture was reduced. 2 threaded K-wires were then placed from distal to proximal and perpendicular to the fracture. Biplanar fluoroscopy was used to confirm positioning and then they were overdrilled and 2 40 mm 4.0 partially-threaded cannulated cancellous screws were placed across the fracture. I was satisfied with the position and the fracture reduction based on biplanar fluoroscopy. This syndesmosis was tested using external rotation test and was found to be stable. Therefore all instrumentation was removed and copious irrigation was performed. Absorbable suture and tenzin were used for closure and the patient was placed into sterile dressings and a well-padded posterior splint. Tourniquet was let down and the patient was extubated brought to recovery room in stable condition there were no known complications.
== END 2024-08-12 18:36 ==
LOC: HO.SSS 20:18 → HO.S3 20:18
PROVIDERS: Physician Assistant; PCP Student in an Organized Health Care Education/Training Program; Visit Provider Orthopaedic Surgery
PROC: (CPT 27814; principal; 2024-08-10 11:00)
DX: S82.841A Displaced bimalleolar fracture of right lower leg, initial encounter for closed fracture (principal); M25.571 Pain in right ankle and joints of right foot; W10.1XXA Fall (on)(from) sidewalk curb, initial encounter; X50.1XXA Overexertion from prolonged static or awkward postures, initial encounter; Y93.01 Activity, walking, marching and hiking; Y92.488 Other paved roadways as the place of occurrence of the external cause; Y99.8 Other external cause status; I10 Essential (primary) hypertension; E78.00 Pure hypercholesterolemia, unspecified; E11.9 Type 2 diabetes mellitus without complications; M47.9 Spondylosis, unspecified; G47.33 Obstructive sleep apnea (adult) (pediatric); Z85.3 Personal history of malignant neoplasm of breast; Z92.21 Personal history of antineoplastic chemotherapy; Z92.3 Personal history of irradiation; Z79.85 Long-term (current) use of injectable non-insulin antidiabetic drugs; Z79.899 Other long term (current) drug therapy; Z88.1 Allergy status to other antibiotic agents; Z88.2 Allergy status to sulfonamides; Z91.041 Radiographic dye allergy status; Z98.890 Other specified postprocedural states; Z87.891 Personal history of nicotine dependence
CPT/HCPCS: 27814; 36415; 80048; 82947; 85025; 93005; 97110; 97161; C1713; J0131; J0665; J0690; J1100; J2003; J2250; J2371; J2405; J2704; J2795; J3010; J7120

== ENCOUNTER → 2024-08-10 10:26 | Outpatient (BNV) | payer MEDICARE, SELFPAY | PROVIDERS: PCP Student in an Organized Health Care Education/Training Program; Visit Provider Internal Medicine | DX: R94.31 Abnormal electrocardiogram [ECG] [EKG] (principal); Z01.810 Encounter for preprocedural cardiovascular examination | CPT/HCPCS: 93010 ==

== ENCOUNTER → 2024-08-10 11:00 | Outpatient (BNV) | payer MEDICARE, SELFPAY | PROVIDERS: Admitting Provider Orthopaedic Surgery; PCP Student in an Organized Health Care Education/Training Program; Visit Provider Orthopaedic Surgery | DX: S82.841A Displaced bimalleolar fracture of right lower leg, initial encounter for closed fracture (principal) | CPT/HCPCS: 27814; 99024 ==

== ENCOUNTER → 2024-08-10 | Outpatient (BNV) | payer MEDICARE, SELFPAY | PROVIDERS: PCP Student in an Organized Health Care Education/Training Program; Visit Provider Physician Assistant | DX: S82.841A Displaced bimalleolar fracture of right lower leg, initial encounter for closed fracture (principal) | CPT/HCPCS: 99222 ==

== ENCOUNTER 2024-08-16 11:45 | Outpatient (AMB) | payer MEDICARE, SELFPAY ==
--- NOTE | 2024-08-16 11:52 | A.OFFVIS_ITS ---
Vital Signs 08/16/24 11:54 Height 5 ft 8 in Intake Visit Reasons: PO RT ankle ORIF 08/10/24 NE Intake Note: Dorie is a 73 year old female who presents today for a post op appointment s/p RT ankle ORIF 08/10/24 NE. Patient reports that the right ankle is feeling well. Patient states that the pain is mild. Allergies amoxicillin Allergy (Verified 08/08/24 14:40) Rash Iodinated Contrast Media [Contrast Dye] Allergy (Verified 08/08/24 14:40) Rash, [place] like Blood Boiling nickel Allergy (Verified 08/08/24 14:40) Rash rubber, unspecified Allergy (Verified 08/08/24 14:40) + Rxn from allergy testing Sulfa (Sulfonamide Antibiotics) Allergy (Verified 08/08/24 14:40) Swelling HPI HPI PO RT ankle ORIF 08/10/24 NE: Details: Ms. Treadwell is a 73-year-old female who presents to the office today for routine follow-up status post right ankle ORIF performed on 08/10/[address] Clifford. She denies any pain at this time. Overall she is doing very well. Of note, the patient does have a history of diabetes. [facility] Medical History Fatty liver History of chemotherapy Arthritis of spine Back pain Hx of diarrhea Diabetes History of headache TAMARA (obstructive sleep apnea) Elevated cholesterol HTN (hypertension) Surgical History Hx of varicose vein ligation and stripping History of lumpectomy of right breast History of lumpectomy of left breast History of kidney surgery History of nephrectomy, left Social History Are you a primary clinical manager home care to a significant other at home: No Do you presently have visiting nurse or other home services: No Comment: COUNTS CORRECT Patient Tobacco Use Status: Former Tobacco user Tobacco use type: Cigarette Second Hand Smoke Exposure: No service: No Review of Systems Const All systems reviewed & are unremarkable except as noted in HPI and below Physical Exam Const General: cooperative, healthy appearing and no acute distress Resp Effort & Inspection: normal respiratory effort and able to speak in complete sentences Extrem Other: Right ankle medial and lateral incision sites are clean dry and intact. [place] intact. Able to slightly dorsiflex and plantar flex. Moving all digits. Denies any numbness or tingling. Pedal pulse intact. Office Procedures Casting/Splints [id number] Leg splint application Procedure code (CPT) selection complete Assessment & Plan Assessment & Plan (1) Status post ORIF of fracture of ankle: Code(s): Z98.890 - Other specified postprocedural states; Z87.81 - Personal history of (healed) traumatic fracture Category: Medical (2) Bimalleolar fracture of right ankle: Code(s): S82.841A - Displaced bimalleolar fracture of right lower leg, initial encounter for closed fracture Category: Medical Plan Ms. Treadwell is a 73-year-old female who presents to the office today status post right ankle ORIF performed on 08/10/[address] Clifford. Patient states that overall she is doing very well. She is residing in a nursing facility at this time because she is unable to ambulate safely while nonweightbearing on the right lower extremity. She denies any pain at this time. Of note the patient does have a past medical history significant for diabetes. While in the office today, the splint was taken down and the incision sites were reviewed. He incision sites are clean dry and intact with no surrounding erythema or drainage. No signs of infection at this time. Therefore, the patient was placed back into a posterior short-leg splint. I would like to see her in 1 week for x-rays and anticipation of staple removal. She may be seen sooner if needed. Coding Level of Care Code Global (65030) Diagnoses Status post ORIF of fracture of ankle Z98.890; Z87.81 Bimalleolar fracture of right ankle S82.841A CPT Codes Splint - CPT: 99622-Bbhdr Leg splint application ([id number])
--- OUTSIDE RECORDS SUMMARY | 2024-08-16 14:05 | XMS_ITS | Clinical Summary ---
Author Organization [facility] Address [address] [place] [address] Care Team Providers Care Facing Baster Name Role Phone Taylor Contreras MD Primary Care Provider Josselyn Rice RN Unavailable [phone] Allergies Active Allergy Reactions Criticality Noted [...] to complete this topic Insurance JOSE CARLOS [id number] MEDICARE PART A & B [facility] PPO Advance Directives * Full Code (Latest Code Status on File) Date Activated Date Inactivated Comments 11/05/2015 5:07 PM 11/11/2015 9:17 PM * Full Code Date Activated Date Inactivated Comments 11/05/2015 6:11 AM 11/05/2015 5:07 PM Care Teams Facing Baster Relationship Specialty Start Date End Date Taylor Contreras MD [address] [facility] [address] [place] [address] PCP - General Internal Medicine 10/05/15 Josselyn Rice, GERONIMO [address] [address] Oncology Nurse Navigator 11/07/15
== END 2024-08-16 12:48 | disposition home or self-care (01) ==
LOC: HO.HOS 11:45
PROVIDERS: PCP Student in an Organized Health Care Education/Training Program; Visit Provider Physician Assistant
DX: Z98.890 Other specified postprocedural states (principal); Z87.81 Personal history of (healed) traumatic fracture; S82.841A Displaced bimalleolar fracture of right lower leg, initial encounter for closed fracture
CPT/HCPCS: 29515; 99024

== ENCOUNTER → 2024-08-16 11:45 | Outpatient (BNVA) | payer MEDICARE, SELFPAY | PROVIDERS: PCP Student in an Organized Health Care Education/Training Program; Visit Provider Physician Assistant | DX: S82.841D Displaced bimalleolar fracture of right lower leg, subsequent encounter for closed fracture with routine healing (principal); Z87.81 Personal history of (healed) traumatic fracture; Z98.890 Other specified postprocedural states | CPT/HCPCS: 29515; 99212 ==

== ENCOUNTER 2024-08-23 09:09 | Outpatient (REF) | payer MEDICARE, SELFPAY ==
--- NOTE | ~2024-08-23 | XR_ITS ---
EXAMINATION: XR ANKLE, RIGHT CLINICAL INFORMATION: M25.579 - Pain in unspecified ankle and joints of unspecified foot , follow-up. COMPARISON: August 05, 2024 TECHNIQUE: AP, lateral, and mortise views of the right ankle. FINDINGS: Lateral plate and screws fix an oblique fracture cephalad to the syndesmotic ligaments in the fibula. 2 Cannulated medullary screws traverse a transverse fracture through the base of the medial malleolus. Skin tenzin are still in place. There is no widening of the syndesmosis. Faint periosteal new bone formation is visible XR/XR ankle RT min 3V IMPRESSION: Early healing post-ORIF of a bimalleolar fracture. Electronically signed by: Matthias Wheeler MD 08/23/2024 02:27 PM EDT
--- OUTSIDE RECORDS SUMMARY | 2024-08-24 09:53 | XMS_ITS | Clinical Summary ---
Author Organization [facility] Address [address] [place] [address] Care Team Providers Care Inspector Mechanical Name Role Phone Taylor Contreras MD Primary Care Provider [phone] Josselyn Rice RN Unavailable [phone] Allergies Active Allergy Reactions Criticality Noted [...] 95 11/27/2015 11:11 AM EDT Temperature 36.8 C (98.2 F) 11/27/2015 11:11 AM EDT Respiratory Rate 16 06/03/2016 2:46 PM EDT [...] patient's age to complete this topic Insurance [facility] [place] [facility] [place] [id number] MEDICARE PART A & B [facility] PPO Advance Directives * Full Code (Latest Code Status on File) Date Activated Date Inactivated Comments 11/05/2015 5:07 PM 11/11/2015 9:17 PM * Full Code Date Activated Date Inactivated Comments 11/05/2015 6:11 AM 11/05/2015 5:07 PM Care Teams Inspector Mechanical Relationship Specialty Start Date End Date Taylor Contreras MD [address] [facility] [address] [place] [address] PCP - General Internal Medicine 10/05/15 Josselyn Rice RN [address] [place] [id number] Oncology Nurse Navigator 11/07/15
== END 2024-08-23 09:10 | disposition home or self-care (01) ==
LOC: HO.HOSX 09:09
PROVIDERS: Visit Provider Physician Assistant
DX: M25.571 Pain in right ankle and joints of right foot (principal); Z98.890 Other specified postprocedural states; Z87.81 Personal history of (healed) traumatic fracture
CPT/HCPCS: 73610; 99212

== ENCOUNTER 2024-08-23 13:58 | Outpatient (AMB) | payer MEDICARE, SELFPAY ==
--- NOTE | 2024-08-23 14:03 | A.OFFVIS_ITS ---
Intake Visit Reasons: OV-PO RT ankle ORIF 08/10/24 NE Intake Note: Dorie is a 73 year old female who presents today for a post op appointment s/p RT ankle ORIF 08/10/24 NE. Patient reports she is doing well, have little to know pain. Allergies amoxicillin Allergy (Verified 08/23/24 14:27) Rash Iodinated Contrast Media (Contrast Dye) Allergy (Verified 08/23/24 14:27) Rash, [place] like Blood Boiling nickel Allergy (Verified 08/23/24 14:27) Rash rubber, unspecified Allergy (Verified 08/23/24 14:27) + Rxn from allergy testing Sulfa (Sulfonamide Antibiotics) Allergy (Verified 08/23/24 14:27) Swelling HPI HPI OV-PO RT ankle ORIF 08/10/24 NE: Details: Ms. Treadwell is a 73 yo female who presents to the office today for routine followup of a right ankle ORIF performed on 08/10/[address] Clifford. Overall the patient has been doing well with little pain. She has been NWB on the right lower extremity. No additional complaints. [facility] Medical History Fatty liver History of chemotherapy Arthritis of spine Back pain Hx of diarrhea Diabetes History of headache TAMARA (obstructive sleep apnea) Elevated cholesterol HTN (hypertension) Surgical History Hx of varicose vein ligation and stripping History of lumpectomy of right breast History of lumpectomy of left breast History of kidney surgery History of nephrectomy, left Social History Are you a primary medical care evaluation specialist to a significant other at home: No Do you presently have visiting nurse or other home services: No Comment: COUNTS CORRECT Patient Tobacco Use Status: Former Tobacco user Tobacco use type: Cigarette Second Hand Smoke Exposure: No service: No Review of Systems Const All systems reviewed & are unremarkable except as noted in HPI and below Physical Exam Const General: cooperative, healthy appearing and no acute distress Resp Effort & Inspection: normal respiratory effort and able to speak in complete sentences Extrem Other: Right ankle medial and lateral incision sites are clean dry and intact. [place] intact. Able to slightly dorsiflex and plantar flex. Moving all digits. Denies any numbness or tingling. Pedal pulse intact. Assessment & Plan Assessment & Plan (1) Status post ORIF of fracture of ankle: Code(s): Z98.890 - Other specified postprocedural states; Z87.81 - Personal history of (healed) traumatic fracture Category: Surgical Plan Ms. Treadwell is a 73 yo female who presents to the office today for routine followup of a right ankle ORIF performed on 08/10/[address] Clifford. Overall the patient has been doing well with little pain. She has been NWB on the right lower extremity. No additional complaints. While the office today josesito were removed and Steri-Strips were applied. She was placed into a short-leg cast. She will continue nonweightbearing on the right lower extremity. Patient was educated on cast maintenance and instructed to keep the cast clean, dry, and intact. However, should the cast become wet, dirty, damaged, or there are any concerns please call the office immediately for a cast change. Additionally, I also placed these instructions on the consult form from rehab. She will followup in 4 weeks for repeat x-rays, sooner if needed. X-rays of the right ankle were obtained while in the office today, and these were reviewed by me, Brittany Tilley PA-C, and revealed intact orthopedic hardware with routine healing. Orders: Orders XR ankle RT min 3V 08/23/24 M25.579 - Pain in unspecified ankle and joints of unspecified foot Coding Level of Care Code Global (37186) Diagnoses Status post ORIF of fracture of ankle Z98.890; Z87.81
--- OUTSIDE RECORDS SUMMARY | 2024-08-23 16:04 | XMS_ITS | Clinical Summary ---
Author Organization [facility] Address [address] [place] [address] Care Team Providers Care Front Sight Attacher Name Role Phone Taylor Contreras MD Primary Care Provider [phone] Josselyn Rice RN Unavailable [phone] Allergies Active Allergy Reactions Criticality Noted [...] to complete this topic Insurance JOSE CARLOS [id number] MEDICARE PART A & B [facility] PPO Advance Directives * Full Code (Latest Code Status on File) Date Activated Date Inactivated Comments 11/05/2015 5:07 PM 11/11/2015 9:17 PM * Full Code Date Activated Date Inactivated Comments 11/05/2015 6:11 AM 11/05/2015 5:07 PM Care Teams Front Sight Attacher Relationship Specialty Start Date End Date Taylor Contreras MD [address] [facility] [address] [place] [address] PCP - General Internal Medicine 10/05/15 Josselyn Rice, GERONIMO [address] [address] Oncology Nurse Navigator 11/07/15
== END 2024-08-23 15:09 | disposition home or self-care (01) ==
LOC: HO.HOS 13:59
PROVIDERS: PCP Student in an Organized Health Care Education/Training Program; Visit Provider Physician Assistant
DX: Z98.890 Other specified postprocedural states (principal); Z87.81 Personal history of (healed) traumatic fracture
CPT/HCPCS: 99024

== ENCOUNTER → 2024-08-23 14:10 | Outpatient (BNV) | payer MEDICARE, SELFPAY | PROVIDERS: Visit Provider Radiology Diagnostic Radiology | DX: S82.841D Displaced bimalleolar fracture of right lower leg, subsequent encounter for closed fracture with routine healing (principal) | CPT/HCPCS: 73610 ==

== ENCOUNTER 2024-09-22 09:02 | Outpatient (REF) | payer MEDICARE, SELFPAY ==
--- NOTE | ~2024-09-22 | XR_ITS ---
EXAMINATION: XR ANKLE, RIGHT CLINICAL INFORMATION: M25.579 - Pain in unspecified ankle and joints of unspecified foot COMPARISON: 08/23/2024, 08/05/2024. TECHNIQUE: AP, lateral, and mortise views of the right ankle. FINDINGS: Redemonstration of the lateral right and screw construct fixating lateral malleolus fracture. Hardware is intact and well seated without complication. Fracture lines are continually less distinct indicating healing. There is periosteal new bone formation present at the fracture margins. There are 2 compression screws in the medial malleolus transfixing a healing medial malleolar fracture. There is increasing periosteal new bone formation and sclerosis of the fracture margins indicating healing. Periosteal new bone formation also seen on the lateral projection abutting the posterior malleolus. The mortise remains intact. The talar dome remains intact. Subtalar joints demonstrate mild arthritis. Calcaneus is intact. Skin tenzin laterally have been removed. Mild residual circumferential soft tissue swelling. XR/XR ankle RT min 3V IMPRESSION: Continued healing post ORIF of a bimalleolar fracture. No hardware complication. Electronically signed by: Raoul Aj MD 09/22/2024 01:57 PM EDT
--- OUTSIDE RECORDS SUMMARY | 2024-09-23 09:05 | XMS_ITS | Clinical Summary ---
Author Organization [facility] Address [address] [place] [address] Care Team Providers Care Structural Iron Erector Name Role Phone Taylor Contreras MD Primary Care Provider [phone] Josselyn Rice RN Unavailable [phone] Allergies Active Allergy Reactions Criticality Noted [...] patient's age to complete this topic Insurance [facility] [place] [id number] MEDICARE PART A & B [facility] PPO Advance Directives * Full Code (Latest Code Status on File) Date Activated Date Inactivated Comments 11/05/2015 5:07 PM 11/11/2015 9:17 PM * Full Code Date Activated Date Inactivated Comments 11/05/2015 6:11 AM 11/05/2015 5:07 PM Care Teams Structural Iron Erector Relationship Specialty Start Date End Date Taylor Contreras MD [address] [facility] [address] [place] [address] PCP - General Internal Medicine 10/05/15 Josselyn Rice RN [address] [place] [phone] Oncology Nurse Navigator 11/07/15
--- OUTSIDE RECORDS SUMMARY | 2024-09-23 09:05 | XMS_ITS | Encounter Summary ---
Author Organization [facility] Address [address] [facility] [address] [place] [address] Phone Care Team Providers Care Management Developer Name Role Phone Taylor Contreras MD Primary Care Provider [phone] Encounter Details Date Type Department Care Team (Late Contact Info) Description 06/06/2021 Telephone [facility] [address] [facility] [address] [place] [address] Gary Brennan MD [address] [place] [phone] Social History Tobacco Use Types Packs/Day Years Used Date Smoking Tobacco: Never Smokeless Tobacco: Never Alcohol Use Standard Drinks/Week Comments No 0 (1 standard drink = 0.6 oz pur e alcohol) Comments Unknown Sex and Gender Information Value Date Recorded Sex Assigned at Not on file Legal Sex Female 5:24 PM EST Gender Identity Not on file Sexual Orientation Not on file documented as of this encounter Miscellaneous Notes * Telephone Encounter - Jumana Cano - 06/06/2021 11:33 AM EDT Pt called her bp this morning was 185/75. She would like to speak with you for guidance. Please call her back at [phone] Thank you documented in this encounter Plan of Treatment Upcoming Encounters Date Type Department Care Team (Late st Contact Info) Description 02/27/2025 1:00 PM EST Office Visit [facility] [address] [facility] [address] [place] [address] Regine Young ARNP [address] [facility] [address] [place] [address] documented as of this encounter Visit Diagnoses Not on filedocumented in this encounter Care Teams Management Developer Relationship Specialty Start Date End Date Taylor Contreras MD [address] [place], [place] PCP - General 03/19/20 documented as of this encounter
--- OUTSIDE RECORDS SUMMARY | 2024-09-23 09:05 | XMS_ITS | Patient Health Record ---
Author Organization [facility] Address [address] [place] [address] Care Team Providers Care Cashier Clerk Name Role Phone Taylor Contreras MD Primary Care Provider Unavailab David Cano Unavailable [phone] Allergies Allergen (clinical drug ingredient) Drug/Non Drug [...] Problem Acquired hammer toe of right foot (030514125699013 5) Other hammer toe(s) (acquired), right foot (M20.41) Active confirmed Response to treatment,Impr ovement Problem Acquired hammer toe of left foot (374273194431195 3) Other hammer toe(s) (acquired), left foot (M20.42) Active confirmed Response to treatment,Impr ovement Problem Polyneuropathy due to type 2 diabetes mellitus (798734380) Type 2 diabetes mellitus with diabetic polyneuropathy (E11.42) Active confirmed Problem Diabetic foot ulcer (024695846) 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) Active confirmed Response to treatment Nonapplicable Vital Signs Blood pressure diastolic 65 mm Hg 06/13/2024 Height 5ft 8in in 06/13/2024 Blood pressure systolic 131 mm Hg 06/13/2024 Weight 255 lbs 06/13/2024 BMI 38.77 kg/m2 06/13/2024 Procedures Procedure Date Ordered Date Performed Result Body Sit e 21804-FDYNVOE NAIL, 6 OR MORE 12/02/2023 N/A 09675-PXQE SKIN LESIONS, OVER 4 12/02/2023 N/A 23634-ZVNRTDI NAIL, 6 OR MORE 03/07/2024 N/A 70575-GGDLVOE SKIN/TISSUE 03/07/2024 N/A 60279 I&D ABSCESS- SIMPLE,SINGLE 03/07/2024 N/A 34195-SWEE SKIN LESIONS, OVER 4 03/07/2024 N/A 49123-NHUTEZG NAIL, 6 OR MORE 06/13/2024 N/A 62331 I&D ABSCESS- SIMPLE,SINGLE 06/13/2024 N/A 01264-EXNU SKIN LESIONS, OVER 4 06/13/2024 N/A Encounters Encounter Location Date Provider Diagnosis [address] [address] 12/02/2023 David Art Type 2 diabetes mellitus with diabetic polyneuropathy E11.42 ; Tinea unguium B35.1 and Xerosis of skin L85.[address] [address] 03/07/2024 David Art Type 2 diabetes mellitus with diabetic polyneuropathy E11.42 ; Tinea unguium B35.1 ; Xerosis of skin L85.3 ; Other hammer toe(s) (acquired), right foot M20.41 ; Other hammer toe(s) (acquired), left foot M20.42 ; Abscess of toe, left L02.612 and 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.[address] [address] 06/13/2024 David Art Type 2 diabetes mellitus with diabetic polyneuropathy E11.42 ; Tinea unguium B35.1 ; Abscess of toe, left L02.612 and 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.[address] [facility] [address] 10/29/2023 [facility] [address] 03/07/2024 [facility] [address] [address] 03/14/2024 [facility] [address] [address] 09/05/2024 Davidreynlod GraysonRubens Assessments Encounter Date Diagnosis (ICD Code) Assessment Notes Treatment Notes Treatment Clinical Notes Section Notes 12/02/2023 Type 2 diabetes mellitus with diabetic polyneuropathy (ICD-10 - E11.42) 12/02/2023 Tinea unguium (ICD-10 - B35.1) 03/07/2024 Type 2 diabetes mellitus with diabetic polyneuropathy (ICD-10 - E11.42) 03/07/2024 Tinea unguium (ICD-10 - B35.1) 06/13/2024 Type 2 diabetes mellitus with diabetic polyneuropathy (ICD-10 - E11.42) 06/13/2024 Tinea unguium (ICD-10 - B35.1) 06/13/2024 Abscess of toe, left (ICD-10 - L02.612) Patient Educated with: WOUND CARE INSTRUCTIONS. pdf (WOUND CARE INSTRUCTIONS. pdf) 03/07/2024 Xerosis of skin (ICD-10 - L85.3) 12/02/2023 Xerosis of skin (ICD-10 - L85.3) 03/07/2024 Other hammer toe(s) (acquired), right foot (ICD-10 - M20.41) Response to treatment,Improve ment 06/13/2024 Neuropathic ulcer of right foot with fat layer exposed (ICD-10 - L97.512) 03/07/2024 Other hammer toe(s) (acquired), left foot (ICD-10 - M20.42) Response to treatment,Improve ment 03/07/2024 Abscess of toe, left (ICD-10 - L02.612) Patient Educated with: WOUND CARE INSTRUCTIONS. pdf (WOUND CARE INSTRUCTIONS. pdf) 03/07/2024 Neuropathic ulcer of right foot with fat layer exposed (ICD-10 - L97.512) Response to treatment Nonapplicable Patient Educated with: WOUND CARE INSTRUCTIONS. pdf (WOUND CARE INSTRUCTIONS. pdf) 12/02/2023 Other 03/07/2024 Other 06/13/2024 Other Plan Of Treatment Pending Test Test Name Order Date 42095-EUJHRBF NAIL, 6 OR MORE 10/12/2020 65805-EGXWADE NAIL, 6 OR MORE 01/14/2021 03499-FWRNUVW NAIL, 6 OR MORE 04/01/2021 72493-BZSSCBR NAIL, 6 OR MORE 06/03/2021 41284-KPTMLWY NAIL, 6 OR MORE 09/02/2021 65983-WWEBJJV NAIL, 6 OR MORE 11/13/2021 00291-YGJBQSG NAIL, 6 OR MORE 01/22/2022 16510-GCKUIHC NAIL, 6 OR MORE 04/02/2022 22450-NMUEXKN NAIL, 6 OR MORE 06/09/2022 91052-HDYYMBG NAIL, 6 OR MORE 08/20/2022 78934-VHSWBOB NAIL, 6 OR MORE 10/27/2022 81894-OJRUWBA NAIL, 6 OR MORE 12/22/2022 62479-WEWUBMJ NAIL, 6 OR MORE 03/04/2023 54625-WOXOIVW NAIL, 6 OR MORE 05/13/2023 02483-WAHVOMW NAIL, 6 OR MORE 09/23/2023 36530-KGRSQUK NAIL, 6 OR MORE 12/02/2023 05260-LDNNUMJ NAIL, 6 OR MORE 03/07/2024 45724-TOEEKUZ NAIL, 6 OR MORE 06/13/2024 47737-Ogirnrzl Plate 09/23/2023 07086-Xokjfrnp Plate 08/20/2022 46438-Ailuvfws Plate 10/27/2022 72527-Eqdjzpmd Plate 01/14/2021 88357-Navpubkw Plate 10/12/2020 13609-Khwwaksv Plate Each Additional 10/2020 09662- Debride <25 sq cm 04/01/2021 85337- Debride <25 sq cm 09/02/2021 13664- Debride <25 sq cm 08/20/2022 97797- Debride <25 sq cm 01/22/2022 99894- Debride <25 sq cm 01/21/2023 45955- Debride <25 sq cm 03/04/2023 57976-ERZILRK SKIN/TISSUE 01/21/2023 50915-ATAIQWK SKIN/TISSUE 12/22/2022 84448-PAVFZOE SKIN/TISSUE 11/24/2022 00498-HFBVOEE SKIN/TISSUE 03/07/2024 49343-HEJECNJ SKIN/TISSUE 06/09/2022 48754-CUZASQW SKIN/TISSUE 06/23/2022 40071-DCMZWHX SKIN/TISSUE 07/24/2022 71533-HYGRKDG SKIN/TISSUE 10/27/2022 70937-EGNZDZU SKIN/TISSUE 10/12/2020 68144 I&D ABSCESS- SIMPLE,SINGLE 022 69178 I&D ABSCESS- SIMPLE,SINGLE 025 22651 I&D ABSCESS- SIMPLE,SINGLE 024 04260 I&D ABSCESS- SIMPLE,SINGLE 023 03746-MORO SKIN LESIONS, OVER 4 12/23/19 23 91071-EDBB SKIN LESIONS, OVER 4 03/04/20 23 43267-NPDB SKIN LESIONS, OVER 4 05/13/19 24 64979-CQNL SKIN LESIONS, OVER 4 12/02/19 24 16670-GLPY SKIN LESIONS, OVER 4 09/23/19 24 99419-ACNF SKIN LESIONS, OVER 4 03/07/20 24 75118-KVPK SKIN LESIONS, OVER 4 06/14/19 25 01195-VXYS SKIN LESIONS, OVER 4 11/14/19 22 57763-WHHQ SKIN LESIONS, OVER 4 09/03/19 22 99876-UPRV SKIN LESIONS, OVER 4 04/01/19 22 98593-KDEN SKIN LESIONS, OVER 4 06/04/19 22 64462-NLSH SKIN LESIONS, OVER 4 10/13/19 21 75131-HRUT SKIN LESIONS, OVER 4 01/15/20 21 64879-RDVN SKIN LESIONS, OVER 4 10/28/19 23 73111-ULNC SKIN LESIONS, OVER 4 08/21/19 23 01216-XUXC SKIN LESIONS, OVER 4 06/10/19 23 26268-YPJB SKIN LESIONS, OVER 4 01/23/20 22 79610-YUKB SKIN LESIONS, OVER 4 04/02/19 23 82930-Cktsstgts, Toes 12/11/2020 Next Appt Details Provider Name:David Art , 10/19/2024 11:30:00 AM, [address] [facility], [address], [place], [address], Insurance Providers Payer Name Payer Address Payer Phone Subscriber Number Group Number Insured Name Patient Relationship to Insured Coverage Start Date Coverage End Date Medicare [facility] [employer] [facility] [address] [place] [address] [id number] Dorie Treadwell Self - patient is the insured [employer] [address] [place] [address] [id number] Dorie Treadwell Self - patient is the insured Medical [...]
--- OUTSIDE RECORDS SUMMARY | 2024-09-23 09:05 | XMS_ITS | Encounter Summary ---
Author Organization [facility] Address [address] [place] [address] Care Team Providers Care Transportation Job Titles Name Role Phone Taylor Contreras MD Primary Care Provider [phone] Encounter Details Date Type Department Care Team (Late st Contact Info) Description 08/13/2024 Lab Requisition [facility] - Main Lab [address] [facility] [place] [address] Elizabeth Parker MD [address] [place] [id number] Encounter for other general examination Social History [...] CBC auto differential (08/13/2024 6:45 AM EDT) [facility] WBC 8.1 4.8 - 10.8 K/mcL LAB HEMETOLOGY METHOD 08/13/2024 10:53 AM [facility] RBC 3.30(L) 3.80 - 4.80 M/mcL LAB HEMETOLOGY METHOD 08/13/2024 10:53 AM [facility] Hemoglobin 9.2(L) 11.5 - 16.0 g/dL LAB HEMETOLOGY METHOD 08/13/2024 10:53 AM [facility] Hematocrit 30.7(L) 35.0 - 47.0 % LAB HEMETOLOGY METHOD 08/13/2024 10:53 AM [facility] MCV 94.2 79.0 - 98.0 FL LAB HEMETOLOGY METHOD 08/13/2024 10:53 AM [facility] MCH 28.2 27.0 - 32.0 pcg LAB HEMETOLOGY METHOD 08/13/2024 10:53 AM [facility] MCHC 30.0(L) 32.0 - 37.0 g/dL LAB HEMETOLOGY METHOD 08/13/2024 10:53 AM [facility] RDW 14.6 11.0 - 15.0 % LAB HEMETOLOGY METHOD 08/13/2024 10:53 AM [facility] Platelets 339 130 - 400 K/mcL LAB HEMETOLOGY METHOD 08/13/2024 10:53 AM [facility] MPV 9.8 7.0 - 11.0 FL LAB HEMETOLOGY METHOD 08/13/2024 10:53 AM [facility] NRBC 0.2 <1.0 % LAB HEMETOLOGY METHOD 08/13/2024 10:53 AM [facility] NRBC Absolute 0.02 <0.10 K/mcL LAB HEMETOLOGY METHOD 08/13/2024 10:53 AM [facility] Neutrophils Relative 50.6 % LAB HEMETOLOGY METHOD 08/13/2024 10:53 AM [facility] Lymphocytes Relative 36.0 % LAB HEMETOLOGY METHOD 08/13/2024 10:53 AM [facility] Monocytes Relative 9.4 % LAB HEMETOLOGY METHOD 08/13/2024 10:53 AM [facility] Eosinophils Relative 2.0 % LAB HEMETOLOGY METHOD 08/13/2024 10:53 AM [facility] Basophils Relative 0.6 % LAB HEMETOLOGY METHOD 08/13/2024 10:53 AM [facility] Immature Granulocytes Relative 1.4 % LAB HEMETOLOGY METHOD 08/13/2024 10:53 AM [facility] Neutrophils Absolute 4.12 1.50 - 7.00 K/mcL LAB HEMETOLOGY METHOD 08/13/2024 10:53 AM [facility] Lymphocytes Absolute 2.92 1.00 - 5.00 K/mcL LAB HEMETOLOGY METHOD 08/13/2024 10:53 AM [facility] Monocytes Absolute 0.76 0.20 - 1.00 K/mcL LAB HEMETOLOGY METHOD 08/13/2024 10:53 AM [facility] Eosinophils Absolute 0.16 0.00 - 0.50 K/mcL LAB HEMETOLOGY METHOD 08/13/2024 10:53 AM [facility] Basophils Absolute 0.05 0.00 - 0.20 K/mcL LAB HEMETOLOGY METHOD 08/13/2024 10:53 AM [facility] Immature Granulocytes Absolute 0.11(H) 0.00 - 0.03 K/mcL LAB HEMETOLOGY METHOD 08/13/2024 10:53 AM EDT [facility] Blood Venous blood specimen / Unknown Venipuncture / Unknown 08/13/2024 6:45 AM EDT 08/13/2024 9:49 AM EDT us Elizabeth Parker MD LAB BLOOD ORDERABLES Final Resu lt Performing Organization Address [facility]/ZIP Co de Phone Number [facility] [address] [place] [address], [place] [phone] * (ABNORMAL) Magnesium (08/13/2024 6:45 AM EDT) Pathologist [facility] Magnesium 1.8(L) 1.9 - 2.6 mg/dL LAB CHEMISTRY METHOD 08/13/2024 11:24 AM EDT [facility] Blood Venous blood specimen / Unknown Venipuncture / Unknown 08/13/2024 6:45 AM EDT 08/13/2024 9:49 AM EDT us Elizabeth Parker MD LAB BLOOD ORDERABLES Final Resu lt Performing Organization Address [facility] de Phone Number [facility] [address] [place] [address], [place] [phone] * (ABNORMAL) Comprehensive metabolic panel (08/13/2024 6:45 AM EDT) Pathologist [facility] Sodium 143 133 - 145 mmol/L LAB CHEMISTRY METHOD 08/13/2024 11:24 AM EDT [facility] Potassium 4.3 3.5 - 5.5 mmol/L LAB CHEMISTRY METHOD 08/13/2024 11:24 AM EDT [facility] Chloride 106 96 - 110 mmol/L LAB CHEMISTRY METHOD 08/13/2024 11:24 AM EDT [facility] CO2 30 21 - 32 mmol/L LAB CHEMISTRY METHOD 08/13/2024 11:24 AM EDT [facility] Anion Gap 7 3 - 11 LAB CHEMISTRY METHOD 08/13/2024 11:24 AM [facility] Glucose 83 70 - 100 mg/dL LAB CHEMISTRY METHOD 08/13/2024 11:24 AM [facility] BUN 23 5 - 25 mg/dL LAB CHEMISTRY METHOD 08/13/2024 11:24 AM [facility] Creatinine 1.05 0.50 - 1.10 mg/dL LAB CHEMISTRY METHOD 08/13/2024 11:24 AM [facility] eGFR 56(L) >=60 mL/min/1. 73m2 LAB CHEMISTRY METHOD 08/13/2024 11:24 AM [facility] Comment:Calculation based on the Chronic Kidney Disease Epidemiology Collaboration (CKD-EPI) equation refit without adjustment for race. BUN/Creatinine Ratio 21.9 LAB CHEMISTRY METHOD 08/13/2024 11:24 AM [facility] Calcium 8.9 8.5 - 10.5 mg/dL LAB CHEMISTRY METHOD 08/13/2024 11:24 AM [facility] AST (SGOT) 35 10 - 42 unit/L LAB CHEMISTRY METHOD 08/13/2024 11:24 AM [facility] ALT (SGPT) 26 10 - 60 unit/L LAB CHEMISTRY METHOD 08/13/2024 11:24 AM [facility] Alkaline Phosphatase 120 42 - 121 unit/L LAB CHEMISTRY METHOD 08/13/2024 11:24 AM [facility] Total Protein 6.4 6.0 - 8.0 g/dL LAB CHEMISTRY METHOD 08/13/2024 11:24 AM [facility] Albumin 2.9(L) 3.2 - 5.0 g/dL LAB CHEMISTRY METHOD 08/13/2024 11:24 AM [facility] Total Bilirubin 0.3 0.0 - 1.4 mg/dL LAB CHEMISTRY METHOD 08/13/2024 11:24 AM EDT [facility] Blood Venous blood specimen / Unknown Venipuncture / Unknown 08/13/2024 6:45 AM EDT 08/13/2024 9:49 AM EDT us Elizabeth Parker MD LAB BLOOD ORDERABLES Final Resu lt [facility] [address] [place] [address], documented in this encounter Visit Diagnoses Diagnosis Encounter for other general examination documented in this encounter Care Teams Transportation Job Titles Relationship Specialty Start Date End Date Taylor Contreras MD [address] [place] [address] PCP - General Internal Medicine 02/18/11 documented as of this encounter
== END 2024-09-22 09:03 | disposition home or self-care (01) ==
LOC: HO.HOSX 09:02
PROVIDERS: Visit Provider Physician Assistant
DX: M25.571 Pain in right ankle and joints of right foot (principal); Z98.890 Other specified postprocedural states; Z87.81 Personal history of (healed) traumatic fracture; Z99.3 Dependence on wheelchair
CPT/HCPCS: 73610; 99212

== ENCOUNTER 2024-09-22 11:12 | Outpatient (AMB) | payer MEDICARE, SELFPAY ==
--- NOTE | 2024-09-22 11:51 | A.OFFVIS_ITS ---
Vital Signs 09/22/24 11:53 Height 5 ft 8 in Intake Visit Reasons: PO - Right Ankle ORIF 08/10/24 NE Intake Note: Dorie is a 73 year old female who presents today for a post operative appointment s/p RT ankle ORIF 08/10/24 NE. At her last visit she was placed in a Short Leg Cast and instructed to remain non-weight bearing. Patient is doing well she feels that her ankle feels weak. Allergies amoxicillin Allergy (Verified 09/22/24 11:53) Rash Iodinated Contrast Media (Contrast Dye) Allergy (Verified 09/22/24 11:53) Rash, [place] like Blood Boiling nickel Allergy (Verified 09/22/24 11:53) Rash rubber, unspecified Allergy (Verified 09/22/24 11:53) + Rxn from allergy testing Sulfa (Sulfonamide Antibiotics) Allergy (Verified 09/22/24 11:53) Swelling HPI HPI PO - Right Ankle ORIF 08/10/24 NE: Details: Ms. Treadwell is a 73-year-old female who presents to the office today status post right ankle ORIF performed on 08/10/[address] Clifford. She reports that she is overall doing very well. She has been discharged from the SNF and is now at home. She presents to the office today in a wheelchair. At her last appointment on 08/23/2024 with me she was placed back into a short-leg cast and instructed to continue nonweightbearing. [facility] Medical History Fatty liver History of chemotherapy Arthritis of spine Back pain Hx of diarrhea Diabetes History of headache TAMARA (obstructive sleep apnea) Elevated cholesterol HTN (hypertension) Surgical History Hx of varicose vein ligation and stripping History of lumpectomy of right breast History of lumpectomy of left breast History of kidney surgery History of nephrectomy, left Social History Are you a primary care navigator to a significant other at home: No Do you presently have visiting nurse or other home services: No Comment: COUNTS CORRECT Patient Tobacco Use Status: Former Tobacco user Tobacco use type: Cigarette Second Hand Smoke Exposure: No service: No Review of Systems Const All systems reviewed & are unremarkable except as noted in HPI and below Physical Exam Const General: cooperative, healthy appearing and no acute distress Resp Effort & Inspection: normal respiratory effort and able to speak in complete sentences Extrem Other: Right ankle medial and lateral incision sites are clean dry and intact. Steri- Strips remain intact. Able to slightly dorsiflex and plantar flex with stiffness. Moving all digits. Denies any numbness or tingling. Pedal pulse intact. Assessment & Plan Assessment & Plan (1) Status post ORIF of fracture of ankle: Code(s): Z98.890 - Other specified postprocedural states; Z87.81 - Personal history of (healed) traumatic fracture Category: Surgical Plan Ms. Treadwell is a 73-year-old female who presents to the office today status post right ankle ORIF performed on 08/10/[address] Clifford. She reports that she is overall doing very well. She has been discharged from the SNF and is now at home. She presents to the office today in a wheelchair. At her last appointment on 08/23/2024 with me she was placed back into a short-leg cast and instructed to continue nonweightbearing. Patient denies any pain. While in the office today, the cast was removed and repeat x-rays were obtained. X-rays reveal intact orthopedic hardware with routine healing. I have provided the patient with a tall walking boot off the shelf today and instructed that she may begin to weightbear as tolerated. Additionally, I have printed off a physical therapy protocol that she will give to her home [facility] physical therapist. She will follow up in 6 weeks with repeat x-ray, sooner if needed. X-rays of the right ankle which were obtained while in the office today and were reviewed by me, Brittany Tilley PA-C, revealed intact orthopedic hardware with routine healing. Orders: Orders XR ankle RT min 3V Today M25.579 - Pain in unspecified ankle and joints of unspecified foot Coding Level of Care Code Global (27457) Diagnoses Status post ORIF of fracture of ankle Z98.890; Z87.81
--- OUTSIDE RECORDS SUMMARY | 2024-09-22 12:02 | XMS_ITS | Patient Health Record ---
Author Organization [facility] Address [address] [place] [address] Care Team Providers Care Electrical Engineering Technologist Name Role Phone Taylor Contreras MD Primary Care Provider Unavailab David Cano Unavailable [phone] Allergies Allergen (clinical drug ingredient) Drug/Non Drug Allergy documented on EMR Reaction Allergy Type Onset Date Status Rubber rubber (uncoded) Unknown Allergy Act luis enrique amoxicillin Amoxicillin Unknown Drug Allergy Act luis enrique Dust Mites Unknown Allergy Active Penicillin rash Drug Allergy Active Substance with sulfonamide structure and antibacterial mechanism of action (substance) Sulfa Antibiotics swelling of face Drug Allergy Active Results Component Value Reference Range Notes HEMOGLOBIN A1C (GLYCOHEMOGLO BIN) Reviewed date:06/13/2024 02:08:06 PM Interpretation: Performing Lab: Notes/Report: HEMOGLOBIN A1C % (HH) 7.6 HEMOGLOBIN A1C (GLYCOHEMOGLO BIN) Reviewed date:12/02/2023 02:03:51 PM Interpretation: Performing Lab: Notes/Report: TOTAL HEMOGLOBIN (HGBA1C) 7.6 Reason For Referral No Information Medications Medication SIG (Take, Route, Frequency, Duration) Notes Start Date End Date Status Carvedilol 25 MG 1 tablet with food Orally Twice a day; Duration: 30 day(s) Active Centrum Silver Activ e DULoxetine HCl 90 mg, 1 per day Active Gabapentin 600 MG 1 tablet Orally Once a day; Duration: 30 day(s) 3x per day Active glipiZIDE Active Losartan Potassium 50 MG 1 tablet Orally Once a day; Duration: 30 day(s) Active Extra Depth Orthopedic Shoes (1 Pair) with Customized Heat Molded Multidensity Innersoles (3 Pair) as directed Dx: NIDDM/Polyneuropathy (E11.42), Hammertoe Foot Deformity (M20.41,M20.42), Preulcerative Skin Lesion(s) (L85.1 09/23/2023 Active Ammonium Lactate 12 % 1 application Externally to feet except for between the toes Twice a day; Duration: 30 days Not-Taking Iodosorb 0.9 % as directed Externally Apply to ulceration daily with dry sterile dressing; Duration: 30 days 03/07/2024 Not-Taking Simvastatin Not-Taki ng Iodosorb 0.9 % as directed Externally Apply to ulceration daily with dry sterile dressing; Duration: 30 days 01/21/2023 Not-Taking Trulicity Not-Taking metFORMIN HCl Not-Andrea connelly Azithromycin 250 MG 2 tablets on the first day, then 1 tablet daily for 4 days Orally Once a day; Duration: 5 day(s) 11/13/2021 Not-Taking Antibiotic Not-Jada g Atorvastatin Calcium Active Immunizations Vaccine Route Administration Date Status Comme nts COVID-19 Pfizer BioNTech Vaccine Unknown 07/30/2020 Administered 1st 07/09/2020 Influenza Unknown 11/09/2019 Administered Social History Tobacco Use: Social History Observation Description Date Details (start date - stop date) Never Smoker NA - NA Alcohol Screen Question Answer Notes Did you have a drink containing alcohol in the p ast year? No Points 0 Interpretation Negative Tobacco use other than smoking: Question Answer Notes Are you an other tobacco user? No Tobacco Control (Standard) Question Answer Notes Tobacco use: Nonsmoker Additional Findings: Tobacco non-user Current no nsmoker Problems Problem Type SNOMED Code ICD Code Onset Dates Problem Status W/U Status Risk Notes Problem Acquired hammer toe of right foot (208857733898374 5) Other hammer toe(s) (acquired), right foot (M20.41) Active confirmed Response to treatment,Impr ovement Problem Acquired hammer toe of left foot (986657266388197 3) Other hammer toe(s) (acquired), left foot (M20.42) Active confirmed Response to treatment,Impr ovement Problem Polyneuropathy due to type 2 diabetes mellitus (715776552) Type 2 diabetes mellitus with diabetic polyneuropathy (E11.42) Active confirmed Problem 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) Active confirmed Response to treatment Nonapplicable Vital Signs Blood pressure diastolic 65 mm Hg 06/13/2024 Height 5ft 8in in 06/13/2024 Blood pressure systolic 131 mm Hg 06/13/2024 Weight 255 lbs 06/13/2024 BMI 38.77 kg/m2 06/13/2024 Procedures Procedure Date Ordered Date Performed Result Body Sit e 46527-VKMMJLY NAIL, 6 OR MORE 09/23/2023 N/A 81619-Siymyzce Plate 09/23/2023 N/A 72364-ENTT SKIN LESIONS, OVER 4 09/23/2023 N/A 75309-KWXBLFX NAIL, 6 OR MORE 12/02/2023 N/A 80703-YQIQ SKIN LESIONS, OVER 4 12/02/2023 N/A 15737-EKDPOJE NAIL, 6 OR MORE 03/07/2024 N/A 81038-XRRZMRA SKIN/TISSUE 03/07/2024 N/A 42707 I&D ABSCESS- SIMPLE,SINGLE 03/07/2024 N/A 35628-MSRW SKIN LESIONS, OVER 4 03/07/2024 N/A 00699-TSOLRXC NAIL, 6 OR MORE 06/13/2024 N/A 82577 I&D ABSCESS- SIMPLE,SINGLE 06/13/2024 N/A 23611-ZQNO SKIN LESIONS, OVER 4 06/13/2024 N/A Encounters Encounter Location Date Provider Diagnosis [address] [address] 09/23/2023 David Art Type 2 diabetes mellitus with diabetic polyneuropathy E11.42 ; Tinea unguium B35.1 ; Other hammer toe(s) (acquired), right foot M20.41 ; Ingrown nail L60.0 and Other hammer toe(s) (acquired), left foot M20.[address] [address] 12/02/2023 David Art Type 2 diabetes mellitus with diabetic polyneuropathy E11.42 ; Tinea unguium B35.1 and Xerosis of skin L85.[address] [address] 03/07/2024 David Rubens Type 2 diabetes mellitus with diabetic polyneuropathy E11.42 ; Tinea unguium B35.1 ; Xerosis of skin L85.3 ; Other hammer toe(s) (acquired), right foot M20.41 ; Other hammer toe(s) (acquired), left foot M20.42 ; Abscess of toe, left L02.612 and 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.[address] [address] 06/13/2024 David Art Type 2 diabetes mellitus with diabetic polyneuropathy E11.42 ; Tinea unguium B35.1 ; Abscess of toe, left L02.612 and 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.[address] [place] [address] 10/29/2023 [facility] Rubens [address] [address] 03/07/2024 [facility] Rubens [address] [address] 03/14/2024 David Rubens [address] [address] 09/05/2024 David Art Assessments Encounter Date Diagnosis (ICD Code) Assessment Notes Treatment Notes Treatment Clinical Notes Section Notes 12/02/2023 Type 2 diabetes mellitus with diabetic polyneuropathy (ICD-10 - E11.42) 12/02/2023 Tinea unguium (ICD-10 - B35.1) 09/23/2023 Type 2 diabetes mellitus with diabetic polyneuropathy (ICD-10 - E11.42) 09/23/2023 Tinea unguium (ICD-10 - B35.1) 03/07/2024 Type 2 diabetes mellitus with diabetic polyneuropathy (ICD-10 - E11.42) 03/07/2024 Tinea unguium (ICD-10 - B35.1) 06/13/2024 Type 2 diabetes mellitus with diabetic polyneuropathy (ICD-10 - E11.42) 06/13/2024 Tinea unguium (ICD-10 - B35.1) 06/13/2024 Abscess of toe, left (ICD-10 - L02.612) Patient Educated with: WOUND CARE INSTRUCTIONS. pdf (WOUND CARE INSTRUCTIONS. pdf) 09/23/2023 Other hammer toe(s) (acquired), right foot (ICD-10 - M20.41) Patient Educated with: DIABETIC FOOT CARE INSTRUCTIONS. pdf (DIABETIC FOOT CARE INSTRUCTIONS. pdf) 03/07/2024 Xerosis of skin (ICD-10 - L85.3) 12/02/2023 Xerosis of skin (ICD-10 - L85.3) 03/07/2024 Other hammer toe(s) (acquired), right foot (ICD-10 - M20.41) Response to treatment,Improve ment 06/13/2024 Neuropathic ulcer of right foot with fat layer exposed (ICD-10 - L97.512) 09/23/2023 Ingrown nail (ICD-10 - L60.0) 03/07/2024 Other hammer toe(s) (acquired), left foot (ICD-10 - M20.42) Response to treatment,Improve ment 09/23/2023 Other hammer toe(s) (acquired), left foot (ICD-10 - M20.42) 03/07/2024 Abscess of toe, left (ICD-10 - L02.612) Patient Educated with: WOUND CARE INSTRUCTIONS. pdf (WOUND CARE INSTRUCTIONS. pdf) 03/07/2024 Neuropathic ulcer of right foot with fat layer exposed (ICD-10 - L97.512) Response to treatment Nonapplicable Patient Educated with: WOUND CARE INSTRUCTIONS. pdf (WOUND CARE INSTRUCTIONS. pdf) 12/02/2023 Other 03/07/2024 Other 06/13/2024 Other Plan Of Treatment Pending Test Test Name Order Date 55003-LDWVWYL NAIL, 6 OR MORE 10/12/2020 39519-BFXPLAD NAIL, 6 OR MORE 01/14/2021 89986-FPZUFMN NAIL, 6 OR MORE 04/01/2021 93823-GWNAEUI NAIL, 6 OR MORE 06/03/2021 96443-GJDJDZB NAIL, 6 OR MORE 09/02/2021 16366-TIFSRDS NAIL, 6 OR MORE 11/13/2021 92516-DFLNAAJ NAIL, 6 OR MORE 01/22/2022 32997-ECADYMO NAIL, 6 OR MORE 04/02/2022 38399-KPGCRPS NAIL, 6 OR MORE 06/09/2022 76358-KVFFNQP NAIL, 6 OR MORE 08/20/2022 86682-YKKKBFU NAIL, 6 OR MORE 10/27/2022 16855-WJYVSAA NAIL, 6 OR MORE 12/22/2022 36861-FODUSMC NAIL, 6 OR MORE 03/04/2023 41293-CEOGZUZ NAIL, 6 OR MORE 05/13/2023 74028-CXSINJX NAIL, 6 OR MORE 09/23/2023 54675-MQKOYCJ NAIL, 6 OR MORE 12/02/2023 87821-EZBDODP NAIL, 6 OR MORE 03/07/2024 30658-UVTYTVQ NAIL, 6 OR MORE 06/13/2024 67964-Yijzdezb Plate 09/23/2023 42033-Neagwmbi Plate 08/20/2022 60954-Mykalpoa Plate 10/27/2022 17961-Xfkjpnko Plate 01/14/2021 40267-Agrwejwe Plate 10/12/2020 52877-Eojidqie Plate Each Additional 10/2020 03001- Debride <25 sq cm 04/01/2021 90266- Debride <25 sq cm 09/02/2021 63977- Debride <25 sq cm 08/20/2022 19361- Debride <25 sq cm 01/22/2022 27845- Debride <25 sq cm 01/21/2023 51043- Debride <25 sq cm 03/04/2023 25872-GLWLACL SKIN/TISSUE 01/21/2023 60153-CYYSLWZ SKIN/TISSUE 12/22/2022 49198-AJGUOED SKIN/TISSUE 11/24/2022 67698-JHSFVIV SKIN/TISSUE 03/07/2024 16490-SGUWEJS SKIN/TISSUE 06/09/2022 74622-QSJODKM SKIN/TISSUE 06/23/2022 80762-EDDCWXI SKIN/TISSUE 07/24/2022 21258-LLGJJHW SKIN/TISSUE 10/27/2022 24666-JUZKAGH SKIN/TISSUE 10/12/2020 23963 I&D ABSCESS- SIMPLE,SINGLE 022 93726 I&D ABSCESS- SIMPLE,SINGLE 025 21788 I&D ABSCESS- SIMPLE,SINGLE 024 61036 I&D ABSCESS- SIMPLE,SINGLE 023 56167-SEHP SKIN LESIONS, OVER 4 12/23/19 23 10059-UTXD SKIN LESIONS, OVER 4 03/04/20 23 98077-YLOQ SKIN LESIONS, OVER 4 05/13/19 24 92906-VHUE SKIN LESIONS, OVER 4 12/02/19 24 90945-LOJG SKIN LESIONS, OVER 4 09/23/19 24 73868-GJVE SKIN LESIONS, OVER 4 03/07/20 24 37591-OLAD SKIN LESIONS, OVER 4 06/14/19 36801-PSTR SKIN LESIONS, OVER 4 11/14/19 39358-UDVV SKIN LESIONS, OVER 4 09/03/19 22 92762-JYCC SKIN LESIONS, OVER 4 04/01/19 32894-ECUS SKIN LESIONS, OVER 4 06/04/19 11035-KMWP SKIN LESIONS, OVER 4 10/13/19 30626-TSIZ SKIN LESIONS, OVER 4 01/15/20 26860-XVKD SKIN LESIONS, OVER 4 10/28/19 23 06154-DBDA SKIN LESIONS, OVER 4 08/21/19 64739-PRCR SKIN LESIONS, OVER 4 06/10/19 83036-LRMB SKIN LESIONS, OVER 4 01/23/20 96744-WAED SKIN LESIONS, OVER 4 04/02/19 48723-Imsaieyql, Toes 12/11/2020 Next Appt Details Provider Name:David Art , 10/19/2024 11:30:00 AM, [address] [facility], [address], [place], [address], Insurance Providers Payer Name Payer Address Payer Phone Subscriber Number Group Number Insured Name Patient Relationship to Insured Coverage Start Date Coverage End Date Medicare [facility] [employer] [address] [place] [address] [id number] Dorie Treadwell Self - patient is the insured [employer] [address] [place] [address] [id number] Eben Dorie Self - patient is the insured Medical (General) History Medical History History ICD Code Arthritis Broken bones Cancer - Breast Back,Hip,and Knee pain Crohns disease Diverticulosis High blood pressure Kidney disease Measles Mumps Chicken pox Neuropathy due to chemotherapy CAD Surgical History Surgery Date(Month/Year) varicose veins 09/1968 kidney doner 01/1976 lumpectomy 08/2000 kidney cancer 08/2015 Breast Surgery 05/10/21 cataract surgery Hospitalization History Reason Date(Month/Year) [facility], Breast Surgery 05/10/21
--- OUTSIDE RECORDS SUMMARY | 2024-09-22 12:02 | XMS_ITS | Data Portability ---
Author Organization [place] [facility] Address [address] [place] [address] Assessment Encounter Date Assessment Date Assessment LastModified by Organization Details LastModified Time 05/12/2020 05/12/2020 DO NOT BILL PT DID NOT ANSWER DOOR [email or web address] Not available 05/12/2020 16:43:59 Plan of Treatment Reminders Order Date Submit Date Provider Last Modified By Organization Details Last Modified Time Details Appointments None record ed. Lab None record ed. Referral None record ed. Procedures None record ed. Surgeries None record ed. Imaging None record ed. Medication Orders None record ed. Patient TargetsNo targets recorded. Patient InstructionsNo instructions recorded. Reason for Referral None Reported. Medical Equipment None Reported. Medications Name Sig Start Date Stop Date Status Note LastModified by Organization Details LastModified Time losartan 50 mg tablet TAKE 1 TABLET BY MOUTH EVERY DAY active Not Available Not Available No t Available carvedilol 25 mg tablet TAKE 2 TABLETS BY MOUTH TWICE DAILY active Not Available Not Available No t Available gabapentin 600 mg tablet TK 1 T PO TID active Not Available Not Available No t Available simvastatin 20 mg tablet TAKE 1 TABLET BY MOUTH DAILY AT BEDTIME active Not Available Not Available No t Available lorazepam 1 mg tablet TAKE 1 TABLET BY MOUTH EVERY 8 HOURS NEEDED FOR TEST ANXIETY.( DO NOT DRIVE) active Not Available Not Available No t Available duloxetine 30 mg capsule,delay ed release TAKE 1 CAPSULE BY MOUTH DAILY TAKE WITH 60 MG DOSE TO MAKE TOTAL DOSE OF 90 MG active Not Available Not Available No t Available duloxetine 60 mg capsule,delay ed release TAKE 1 CAPSULE BY MOUTH DAILY TAKE ALONG WITH 30 TO MAKE 90 MG DOSE active Not Available Not Available No t Available Vitals None Recorded Social History None recorded. Functional Status None recorded. Mental Status None recorded. Family History Nothing Reported. Medical History No medical history recorded. Gynecological HistoryNo gynecological history recorded. Obstetrics History GPAL:G 0 P 0 0 0 0 Past Encounters Encounter ID Performer Location Encounter Start Date Encounter Closed Date Diagnosis/Indication Diagnosis SNOMED-CT Code Diagnosis ICD10 Code Diagnosis Note [id number] STEVE BLEVINS NP [facility] [address] [place] [address] 05/12/2020 15:23:26 05/12/2020 16:09:35 Health Concerns Section Related Observation LastModified by Organization Detai ls LastModified Time None Recorded Concern Status LastModified by Organization Details LastModified Time None Recorded Advance Directives Directive None Recorded Payers Insurance Date Sequence Insurance Name Policy Number Policy Oneal Covered Member ID Oneal Member ID Guarantor Name 05/12/2020 1 *SELF PAY* Dorie Treadwell [id number] Dorie Treadwell 05/12/2020 2 [place] [id number] Dorie Treadwell [id number] Dorie Treadwell 05/12/2020 2 [place] [id number] Dorie Treadwell [id number] Dorie Treadwell 05/12/2020 1 [place] Dorie Treadwell [id number] Dorie Treadwell 05/12/2020 1 [place] Dorie Treadwell [id number] Dorie Treadwell Notes Date Note Type Note Provider Name and Address Organization Details Recorded Time 05/12/2020 text/html DO NOT BILL PT DID NOT ANSWER DOOR STEVE BLEVINS NP [address], [place], [address], [place] [facility] 05/12/2020 16:44:05 OBGyn Episode No OBEpisode recorded.
--- OUTSIDE RECORDS SUMMARY | 2024-09-22 12:02 | XMS_ITS | Encounter Summary ---
Author Organization [facility] Address [address] [place] [address] Care Team Providers Care Senior Environmental Consultant Name Role Phone Taylor Contreras MD Primary Care Provider [phone] Encounter Details Date Type Department Care Team (Late st Contact Info) Description 08/13/2024 Lab Requisition [facility] - Main Lab [address] [facility] [place] [address] Elizabeth Parker MD [address] [place] [id number] Encounter for other general examination Social History Tobacco Use Types Packs/Day Years Used Date Smoking Tobacco: Former Cigarettes Q uit: 05/18/2000 Smokeless Tobacco: Never Alcohol Use Standard Drinks/Week Comments Yes 0 (1 standard drink = 0.6 oz pur e alcohol) Comments Unknown Sex and Gender Information Value Date Recorded Sex Assigned at Not on file Legal Sex Female 4:07 PM EST Gender Identity Not on file Sexual Orientation Not on file documented as of this encounter Plan of Treatment Not on file documented as of this encounter Procedures Procedure Name Priority Date/Time Associated Diagnosis Comments CBC WITH AUTO DIFFERENTIAL Routine 08/13/2024 6:45 AM EDT Encounter for other general examination CBC AND DIFFERENTIAL Routine 08/13/2024 6:45 AM EDT Encounter for other general examination MAGNESIUM Routine 08/13/2024 6:45 AM EDT Encounter for other general examination COMPREHENSIVE METABOLIC PANEL Routine 08/13/2024 6:45 AM EDT Encounter for other general examination documented in this encounter Results * (ABNORMAL) CBC auto differential (08/13/2024 6:45 AM EDT) [facility] WBC 8.1 4.8 - 10.8 K/mcL LAB HEMETOLOGY METHOD 08/13/2024 10:53 AM [facility] RBC 3.30(L) 3.80 - 4.80 M/mcL LAB HEMETOLOGY METHOD 08/13/2024 10:53 AM [facility] Hemoglobin 9.2(L) 11.5 - 16.0 g/dL LAB HEMETOLOGY METHOD 08/13/2024 10:53 AM [facility] Hematocrit 30.7(L) 35.0 - 47.0 % LAB HEMETOLOGY METHOD 08/13/2024 10:53 AM [facility] MCV 94.2 79.0 - 98.0 FL LAB HEMETOLOGY METHOD 08/13/2024 10:53 AM [facility] MCH 28.2 27.0 - 32.0 pcg LAB HEMETOLOGY METHOD 08/13/2024 10:53 AM [facility] MCHC 30.0(L) 32.0 - 37.0 g/dL LAB HEMETOLOGY METHOD 08/13/2024 10:53 AM [facility] RDW 14.6 11.0 - 15.0 % LAB HEMETOLOGY METHOD 08/13/2024 10:53 AM [facility] Platelets 339 130 - 400 K/mcL LAB HEMETOLOGY METHOD 08/13/2024 10:53 AM [facility] MPV 9.8 7.0 - 11.0 FL LAB HEMETOLOGY METHOD 08/13/2024 10:53 AM [facility] NRBC 0.2 <1.0 % LAB HEMETOLOGY METHOD 08/13/2024 10:53 AM [facility] NRBC Absolute 0.02 <0.10 K/mcL LAB HEMETOLOGY METHOD 08/13/2024 10:53 AM [facility] Neutrophils Relative 50.6 % LAB HEMETOLOGY METHOD 08/13/2024 10:53 AM [facility] Lymphocytes Relative 36.0 % LAB HEMETOLOGY METHOD 08/13/2024 10:53 AM [facility] Monocytes Relative 9.4 % LAB HEMETOLOGY METHOD 08/13/2024 10:53 AM [facility] Eosinophils Relative 2.0 % LAB HEMETOLOGY METHOD 08/13/2024 10:53 AM [facility] Basophils Relative 0.6 % LAB HEMETOLOGY METHOD 08/13/2024 10:53 AM [facility] Immature Granulocytes Relative 1.4 % LAB HEMETOLOGY METHOD 08/13/2024 10:53 AM [facility] Neutrophils Absolute 4.12 1.50 - 7.00 K/mcL LAB HEMETOLOGY METHOD 08/13/2024 10:53 AM [facility] Lymphocytes Absolute 2.92 1.00 - 5.00 K/mcL LAB HEMETOLOGY METHOD 08/13/2024 10:53 AM [facility] Monocytes Absolute 0.76 0.20 - 1.00 K/mcL LAB HEMETOLOGY METHOD 08/13/2024 10:53 AM [facility] Eosinophils Absolute 0.16 0.00 - 0.50 K/mcL LAB HEMETOLOGY METHOD 08/13/2024 10:53 AM [facility] Basophils Absolute 0.05 0.00 - 0.20 K/mcL LAB HEMETOLOGY METHOD 08/13/2024 10:53 AM [facility] Immature Granulocytes Absolute 0.11(H) 0.00 - 0.03 K/mcL LAB HEMETOLOGY METHOD 08/13/2024 10:53 AM EDT [facility] Blood Venous blood specimen / Unknown Venipuncture / Unknown 08/13/2024 6:45 AM EDT 08/13/2024 9:49 AM EDT us Elizabeth Parker MD LAB BLOOD ORDERABLES Final Resu lt Performing Organization Address [facility]/ZIP Co de Phone Number [facility] [address] [place] [address], [place] [phone] * (ABNORMAL) Magnesium (08/13/2024 6:45 AM EDT) Pathologist [facility] Magnesium 1.8(L) 1.9 - 2.6 mg/dL LAB CHEMISTRY METHOD 08/13/2024 11:24 AM EDT [facility] Blood Venous blood specimen / Unknown Venipuncture / Unknown 08/13/2024 6:45 AM EDT 08/13/2024 9:49 AM EDT us Elizabeth Parker MD LAB BLOOD ORDERABLES Final Resu lt Performing Organization Address [facility] de Phone Number [facility] [address] [place] [address], [place] [phone] * (ABNORMAL) Comprehensive metabolic panel (08/13/2024 6:45 AM EDT) Pathologist [facility] Sodium 143 133 - 145 mmol/L LAB CHEMISTRY METHOD 08/13/2024 11:24 AM EDT [facility] Potassium 4.3 3.5 - 5.5 mmol/L LAB CHEMISTRY METHOD 08/13/2024 11:24 AM EDT [facility] Chloride 106 96 - 110 mmol/L LAB CHEMISTRY METHOD 08/13/2024 11:24 AM EDT [facility] CO2 30 21 - 32 mmol/L LAB CHEMISTRY METHOD 08/13/2024 11:24 AM EDT [facility] Anion Gap 7 3 - 11 LAB CHEMISTRY METHOD 08/13/2024 11:24 AM [facility] Glucose 83 70 - 100 mg/dL LAB CHEMISTRY METHOD 08/13/2024 11:24 AM [facility] BUN 23 5 - 25 mg/dL LAB CHEMISTRY METHOD 08/13/2024 11:24 AM [facility] Creatinine 1.05 0.50 - 1.10 mg/dL LAB CHEMISTRY METHOD 08/13/2024 11:24 AM [facility] eGFR 56(L) >=60 mL/min/1. 73m2 LAB CHEMISTRY METHOD 08/13/2024 11:24 AM [facility] Comment:Calculation based on the Chronic Kidney Disease Epidemiology Collaboration (CKD-EPI) equation refit without adjustment for race. BUN/Creatinine Ratio 21.9 LAB CHEMISTRY METHOD 08/13/2024 11:24 AM [facility] Calcium 8.9 8.5 - 10.5 mg/dL LAB CHEMISTRY METHOD 08/13/2024 11:24 AM [facility] AST (SGOT) 35 10 - 42 unit/L LAB CHEMISTRY METHOD 08/13/2024 11:24 AM [facility] ALT (SGPT) 26 10 - 60 unit/L LAB CHEMISTRY METHOD 08/13/2024 11:24 AM [facility] Alkaline Phosphatase 120 42 - 121 unit/L LAB CHEMISTRY METHOD 08/13/2024 11:24 AM [facility] Total Protein 6.4 6.0 - 8.0 g/dL LAB CHEMISTRY METHOD 08/13/2024 11:24 AM [facility] Albumin 2.9(L) 3.2 - 5.0 g/dL LAB CHEMISTRY METHOD 08/13/2024 11:24 AM [facility] Total Bilirubin 0.3 0.0 - 1.4 mg/dL LAB CHEMISTRY METHOD 08/13/2024 11:24 AM EDT [facility] Blood Venous blood specimen / Unknown Venipuncture / Unknown 08/13/2024 6:45 AM EDT 08/13/2024 9:49 AM EDT us Elizabeth Parker MD LAB BLOOD ORDERABLES Final Resu lt [facility] [address] [place] [address], documented in this encounter Visit Diagnoses Diagnosis Encounter for other general examination documented in this encounter Care Teams Senior Environmental Consultant Relationship Specialty Start Date End Date Taylor Contreras MD [address] [place] [address] PCP - General Internal Medicine 02/18/11 documented as of this encounter
--- OUTSIDE RECORDS SUMMARY | 2024-09-22 12:02 | XMS_ITS | Clinical Summary ---
Author Organization [facility] Address [address] [place] [address] Care Team Providers Care Or Assistant Name Role Phone Taylor Contreras MD Primary Care Provider [phone] Josselyn Rice RN Unavailable [phone] Allergies Active Allergy Reactions Criticality Noted [...] patient's age to complete this topic [facility] [place] [place] [address] MEDICARE PART A & B [facility] PPO Advance Directives * Full Code (Latest Code Status on File) Date Activated Date Inactivated Comments 11/05/2015 5:07 PM 11/11/2015 9:17 PM * Full Code Date Activated Date Inactivated Comments 11/05/2015 6:11 AM 11/05/2015 5:07 PM Care Teams Or Assistant Relationship Specialty Start Date End Date Taylor Contreras MD [address] [facility] [address] [place] [address] PCP - General Internal Medicine 10/05/15 Josselyn Rice RN [address] [place] [phone] Oncology Nurse Navigator 11/07/15
== END 2024-09-22 12:21 | disposition home or self-care (01) ==
LOC: HO.HOS 11:12
PROVIDERS: Visit Provider Physician Assistant
DX: Z98.890 Other specified postprocedural states (principal); Z87.81 Personal history of (healed) traumatic fracture
CPT/HCPCS: 99024

== ENCOUNTER → 2024-09-22 11:16 | Outpatient (BNV) | payer MEDICARE, SELFPAY | PROVIDERS: Visit Provider Radiology Diagnostic Radiology | DX: S82.841D Displaced bimalleolar fracture of right lower leg, subsequent encounter for closed fracture with routine healing (principal) | CPT/HCPCS: 73610 ==

== ENCOUNTER 2024-09-30 09:06 | Outpatient (AMB) | payer MEDICARE, SELFPAY ==
--- NOTE | 2024-09-30 09:11 | A.OFFVIS_ITS ---
Intake Visit Reasons: OV- RT ankle wound check Intake Note: Dorie is a 73 year old female who presents today for a post operative wound check appointment s/p RT ankle ORIF 08/10/24 NE. Patient reports she noticed the wound on Thursday. She is experiencing pain and burning. Allergies amoxicillin Allergy (Verified 09/30/24 09:23) Rash Iodinated Contrast Media (Contrast Dye) Allergy (Verified 09/30/24 09:23) Rash, [place] like Blood Boiling nickel Allergy (Verified 09/30/24 09:23) Rash rubber, unspecified Allergy (Verified 09/30/24 09:23) + Rxn from allergy testing Sulfa (Sulfonamide Antibiotics) Allergy (Verified 09/30/24 09:23) Swelling HPI HPI OV- RT ankle wound check: Details: Ms. Treadwell is a 73-year-old female who presents to the office today status post right ankle ORIF performed on 08/10/[address] Clifford. Care tenderness contacted our office stating that the patient had a new wound located on the inner right foot and recommended the patient be seen. In the meantime, Xeroform had been placed over this new wound with gauze. Of note, the patient is a diabetic. [facility] Medical History Fatty liver History of chemotherapy Arthritis of spine Back pain Hx of diarrhea Diabetes History of headache TAMARA (obstructive sleep apnea) Elevated cholesterol HTN (hypertension) Surgical History Hx of varicose vein ligation and stripping History of lumpectomy of right breast History of lumpectomy of left breast History of kidney surgery History of nephrectomy, left Social History Are you a primary plant health care technician to a significant other at home: No Do you presently have visiting nurse or other home services: No Comment: COUNTS CORRECT Patient Tobacco Use Status: Former Tobacco user Tobacco use type: Cigarette Second Hand Smoke Exposure: No service: No Physical Exam Extrem Other: Right ankle medial malleolus has a roughly quarter-size area of skin breakdown. There is healthy granulation tissue in the center of this area. Slight erythema surrounding the area but no signs of infection. Patient is able to demonstrate dorsiflexion, plantar flexion, pronation and supination without any pain. NVI. Assessment & Plan Assessment & Plan (1) Bimalleolar fracture of right ankle: Code(s): S82.841A - Displaced bimalleolar fracture of right lower leg, initial encounter for closed fracture Category: Medical (2) Status post ORIF of fracture of ankle: Code(s): Z98.890 - Other specified postprocedural states; Z87.81 - Personal history of (healed) traumatic fracture Category: Surgical Plan Ms. Treadewll is a 73-year-old female who presents to the office today status post right ankle ORIF performed on 08/10/[address] Clifford. Care tenderness contacted our office stating that the patient had a new wound located on the inner right foot and recommended the patient be seen. In the meantime, Xeroform had been placed over this new wound with gauze. Of note, the patient is a diabetic. While the office today, I took down the dressing that was placed by the VNA to evaluate the wound. At this time there does not appear to be any infection. However, the patient is a diabetic and I am worried about the possibility of progression and wound breakdown. I have placed an order for silver sulfadiazine 1% topical to be placed over the area to promote wound healing. Additionally, I have dressed the area with nonstick gauze and an ABD for additional padding secured with an [place] wrap. Unfortunately, the patient is not ready to be weaned out of the boot at this time. The patient was instructed on daily wound cleaning with an antibacterial soap and water. I recommend that the patient gently pat the area dry before applying the silver Sulfadiazine. Then she will dress the area with the nonstick gauze and an ABD secured with an [place] wrap. She will monitor the progress of wound healing and was educated on signs of infection, which are as follows but not limited to erythema, edema, drainage, or warmth. If she is to experience any of these symptoms, she must contact the office immediately or present to the ED for evaluation. Patient understands and accepts. I would like to see the patient in 1 week for a wound check, sooner if needed. Medications: New silver sulfadiazine 1% apply a 1.5 mm thickness 1 appl topical DAILY PRN 20 grams 0RF wound healing Coding Level of Care Code Global (84117) Diagnoses Bimalleolar fracture of right ankle S82.841A Status post ORIF of fracture of ankle Z98.890; Z87.81
--- OUTSIDE RECORDS SUMMARY | 2024-09-30 09:22 | XMS_ITS | Encounter Summary ---
Author Organization [facility] Address [address] [place] [address] Care Team Providers Care Group Work Program Aide Name Role Phone Taylor Contreras MD Primary Care Provider [phone] Encounter Details Date Type Department Care Team (Late st Contact Info) Description 08/13/2024 Lab Requisition [facility] - Main Lab [address] [facility] [place] [address] Elizabeth Parker MD [address] [place] [address] Encounter for other general examination Social History [...] CBC auto differential (08/13/2024 6:45 AM EDT) [facility] WBC 8.1 4.8 - 10.8 K/mcL LAB HEMETOLOGY METHOD 08/13/2024 10:53 AM [facility] RBC 3.30(L) 3.80 - 4.80 M/mcL LAB HEMETOLOGY METHOD 08/13/2024 10:53 AM [facility] Hemoglobin 9.2(L) 11.5 - 16.0 g/dL LAB HEMETOLOGY METHOD 08/13/2024 10:53 AM [facility] Hematocrit 30.7(L) 35.0 - 47.0 % LAB HEMETOLOGY METHOD 08/13/2024 10:53 AM [facility] MCV 94.2 79.0 - 98.0 FL LAB HEMETOLOGY METHOD 08/13/2024 10:53 AM [facility] MCH 28.2 27.0 - 32.0 pcg LAB HEMETOLOGY METHOD 08/13/2024 10:53 AM [facility] MCHC 30.0(L) 32.0 - 37.0 g/dL LAB HEMETOLOGY METHOD 08/13/2024 10:53 AM [facility] RDW 14.6 11.0 - 15.0 % LAB HEMETOLOGY METHOD 08/13/2024 10:53 AM [facility] Platelets 339 130 - 400 K/mcL LAB HEMETOLOGY METHOD 08/13/2024 10:53 AM [facility] MPV 9.8 7.0 - 11.0 FL LAB HEMETOLOGY METHOD 08/13/2024 10:53 AM [facility] NRBC 0.2 <1.0 % LAB HEMETOLOGY METHOD 08/13/2024 10:53 AM [facility] NRBC Absolute 0.02 <0.10 K/mcL LAB HEMETOLOGY METHOD 08/13/2024 10:53 AM [facility] Neutrophils Relative 50.6 % LAB HEMETOLOGY METHOD 08/13/2024 10:53 AM [facility] Lymphocytes Relative 36.0 % LAB HEMETOLOGY METHOD 08/13/2024 10:53 AM [facility] Monocytes Relative 9.4 % LAB HEMETOLOGY METHOD 08/13/2024 10:53 AM [facility] Eosinophils Relative 2.0 % LAB HEMETOLOGY METHOD 08/13/2024 10:53 AM [facility] Basophils Relative 0.6 % LAB HEMETOLOGY METHOD 08/13/2024 10:53 AM [facility] Immature Granulocytes Relative 1.4 % LAB HEMETOLOGY METHOD 08/13/2024 10:53 AM [facility] Neutrophils Absolute 4.12 1.50 - 7.00 K/mcL LAB HEMETOLOGY METHOD 08/13/2024 10:53 AM [facility] Lymphocytes Absolute 2.92 1.00 - 5.00 K/mcL LAB HEMETOLOGY METHOD 08/13/2024 10:53 AM [facility] Monocytes Absolute 0.76 0.20 - 1.00 K/mcL LAB HEMETOLOGY METHOD 08/13/2024 10:53 AM [facility] Eosinophils Absolute 0.16 0.00 - 0.50 K/mcL LAB HEMETOLOGY METHOD 08/13/2024 10:53 AM [facility] Basophils Absolute 0.05 0.00 - 0.20 K/mcL LAB HEMETOLOGY METHOD 08/13/2024 10:53 AM [facility] Immature Granulocytes Absolute 0.11(H) 0.00 - 0.03 K/mcL LAB HEMETOLOGY METHOD 08/13/2024 10:53 AM EDT [facility] Blood Venous blood specimen / Unknown Venipuncture / Unknown 08/13/2024 6:45 AM EDT 08/13/2024 9:49 AM EDT us Elizabeth Parker MD LAB BLOOD ORDERABLES Final Resu lt Performing Organization Address [facility]/ZIP Co de Phone Number [facility] [address] [place] [address], [place] [phone] * (ABNORMAL) Magnesium (08/13/2024 6:45 AM EDT) Pathologist [facility] Magnesium 1.8(L) 1.9 - 2.6 mg/dL LAB CHEMISTRY METHOD 08/13/2024 11:24 AM EDT [facility] Blood Venous blood specimen / Unknown Venipuncture / Unknown 08/13/2024 6:45 AM EDT 08/13/2024 9:49 AM EDT us Elizabeth Parker MD LAB BLOOD ORDERABLES Final Resu lt Performing Organization Address [facility] de Phone Number [facility] [address] [place] [address], [place] [phone] * (ABNORMAL) Comprehensive metabolic panel (08/13/2024 6:45 AM EDT) Pathologist [facility] Sodium 143 133 - 145 mmol/L LAB CHEMISTRY METHOD 08/13/2024 11:24 AM EDT [facility] Potassium 4.3 3.5 - 5.5 mmol/L LAB CHEMISTRY METHOD 08/13/2024 11:24 AM EDT [facility] Chloride 106 96 - 110 mmol/L LAB CHEMISTRY METHOD 08/13/2024 11:24 AM EDT [facility] CO2 30 21 - 32 mmol/L LAB CHEMISTRY METHOD 08/13/2024 11:24 AM EDT [facility] Anion Gap 7 3 - 11 LAB CHEMISTRY METHOD 08/13/2024 11:24 AM [facility] Glucose 83 70 - 100 mg/dL LAB CHEMISTRY METHOD 08/13/2024 11:24 AM [facility] BUN 23 5 - 25 mg/dL LAB CHEMISTRY METHOD 08/13/2024 11:24 AM [facility] Creatinine 1.05 0.50 - 1.10 mg/dL LAB CHEMISTRY METHOD 08/13/2024 11:24 AM [facility] eGFR 56(L) >=60 mL/min/1. 73m2 LAB CHEMISTRY METHOD 08/13/2024 11:24 AM [facility] Comment:Calculation based on the Chronic Kidney Disease Epidemiology Collaboration (CKD-EPI) equation refit without adjustment for race. BUN/Creatinine Ratio 21.9 LAB CHEMISTRY METHOD 08/13/2024 11:24 AM [facility] Calcium 8.9 8.5 - 10.5 mg/dL LAB CHEMISTRY METHOD 08/13/2024 11:24 AM [facility] AST (SGOT) 35 10 - 42 unit/L LAB CHEMISTRY METHOD 08/13/2024 11:24 AM [facility] ALT (SGPT) 26 10 - 60 unit/L LAB CHEMISTRY METHOD 08/13/2024 11:24 AM [facility] Alkaline Phosphatase 120 42 - 121 unit/L LAB CHEMISTRY METHOD 08/13/2024 11:24 AM [facility] Total Protein 6.4 6.0 - 8.0 g/dL LAB CHEMISTRY METHOD 08/13/2024 11:24 AM [facility] Albumin 2.9(L) 3.2 - 5.0 g/dL LAB CHEMISTRY METHOD 08/13/2024 11:24 AM [facility] Total Bilirubin 0.3 0.0 - 1.4 mg/dL LAB CHEMISTRY METHOD 08/13/2024 11:24 AM EDT [facility] Blood Venous blood specimen / Unknown Venipuncture / Unknown 08/13/2024 6:45 AM EDT 08/13/2024 9:49 AM EDT us Elizabeth Parker MD LAB BLOOD ORDERABLES Final Resu lt [facility] [address] [place] [address], documented in this encounter Visit Diagnoses Diagnosis Encounter for other general examination documented in this encounter Care Teams Group Work Program Aide Relationship Specialty Start Date End Date Taylor Contreras MD [address] [place] [address] PCP - General Internal Medicine 02/18/11 documented as of this encounter
--- OUTSIDE RECORDS SUMMARY | 2024-09-30 09:22 | XMS_ITS | Encounter Summary ---
Author Organization [facility] Address [address] [facility] [address] [place] [address] Phone Care Team Providers Care Instructor Physical Name Role Phone Taylor Contreras MD Primary Care Provider [phone] Encounter Details Date Type Department Care Team (Late Contact Info) Description 06/06/2021 Telephone [facility] [address] [facility] [address] [place] [address] Gary Brennan MD [address] [place] [phone] Social History Tobacco Use Types Packs/Day Years [...] for guidance. Please call her back at [phone] Thank you documented in this encounter Plan of Treatment Upcoming Encounters Date Type Department Care Team (Late st Contact Info) Description 02/27/2025 1:00 PM EST Office Visit [facility] [address] [facility] [address] [place] [address] Regine Young ARNP [address] [facility] [address] [place] [address] documented as of this encounter Visit Diagnoses Not on filedocumented in this encounter Care Teams Instructor Physical Relationship Specialty Start Date End Date Taylor Contreras MD [address] [place], [place] PCP - General 03/19/20 documented as of this encounter
--- OUTSIDE RECORDS SUMMARY | 2024-09-30 09:22 | XMS_ITS | Clinical Summary ---
Author Organization [facility] Address [address] [place] [address] Care Team Providers Care Direct Care Professional Name Role Phone Taylor Contreras MD Primary Care Provider [phone] Josselyn Rice RN Unavailable [phone] Allergies Active Allergy Reactions Criticality Noted [...] patient's age to complete this topic Insurance [facility] [place] [facility] [place] [id number] MEDICARE PART A & B [facility] PPO Advance Directives * Full Code (Latest Code Status on File) Date Activated Date Inactivated Comments 11/05/2015 5:07 PM 11/11/2015 9:17 PM * Full Code Date Activated Date Inactivated Comments 11/05/2015 6:11 AM 11/05/2015 5:07 PM Care Teams Direct Care Professional Relationship Specialty Start Date End Date Taylor Contreras MD [address] [facility] [address] [place] [address] PCP - General Internal Medicine 10/05/15 Josselyn Rice RN [address] [place] [address] Oncology Nurse Navigator 11/07/15
--- OUTSIDE RECORDS SUMMARY | 2024-09-30 09:22 | XMS_ITS | Data Portability ---
Author Organization [place] - Pending sale [place] [facility] Address [address] [place] [address] Assessment Encounter Date Assessment Date Assessment LastModified by Organization Details LastModified Time 05/12/2020 05/12/2020 DO NOT BILL PT DID NOT ANSWER DOOR [email or web address] Not available 05/12/2020 16:43:59 Plan of Treatment [...] SNOMED-CT Code Diagnosis ICD10 Code Diagnosis Note [id number] STEVE BLEVINS NP [facility] [address] [place] [address] 05/12/2020 15:23:26 05/12/2020 16:09:35 Health Concerns Section Related Observation LastModified by Organization Detai ls LastModified Time None Recorded Concern Status LastModified by Organization Details LastModified Time None Recorded Advance Directives Directive None Recorded Payers Insurance Date Sequence Insurance Name Policy Number Policy Oneal Covered Member ID Oneal Member ID Guarantor Name 05/12/2020 1 *SELF PAY* Dorie Treadwell [id number] Dorie Treadwell 05/12/2020 2 [place] [id number] Dorie Treadwell [id number] Dorie Treadwell 05/12/2020 2 [place] [id number] Dorie Treadwell [id number] Dorie Treadwell 05/12/2020 1 [place] [employer] Dorie Treadwell [id number] Dorie Treadwell 05/12/2020 1 [place] Dorie Treadwell [id number] Dorie Treadwell Notes Date Note Type Note Provider Name and Address Organization Details Recorded Time 05/12/2020 text/html DO NOT BILL PT DID NOT ANSWER DOOR STEVE BLEVINS NP [address], [place], [address], [place] [facility] 05/12/2020 16:44:05 OBGyn Episode No OBEpisode recorded.
--- OUTSIDE RECORDS SUMMARY | 2024-09-30 09:22 | XMS_ITS | Patient Health Record ---
Author Organization [facility] Address [address] [place] [address] Care Team Providers Care Modern Languages Professor Name Role Phone Taylor Contreras MD Primary Care Provider Unavailab David Cano Unavailable [phone] Allergies Allergen (clinical drug ingredient) Drug/Non Drug [...] Vaccine Route Administration Date Status Comme nts Influenza Unknown 11/09/2019 Administered COVID-19 Pfizer BioNTech Vaccine Unknown 07/30/2020 Administered 1st 07/09/2020 Social History Tobacco Use: Social History Observation [...] Problem Acquired hammer toe of right foot (225814477068297 5) Other hammer toe(s) (acquired), right foot (M20.41) Active confirmed Response to treatment,Impr ovement Problem Acquired hammer toe of left foot (088735445999864 3) Other hammer toe(s) (acquired), left foot (M20.42) Active confirmed Response to treatment,Impr ovement Problem Polyneuropathy due to type 2 diabetes mellitus (109554431) Type 2 diabetes mellitus with diabetic polyneuropathy (E11.42) Active confirmed Problem Diabetic foot ulcer (144492596) 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) Active confirmed Response to treatment Nonapplicable Vital Signs Blood pressure diastolic 65 mm Hg 06/13/2024 Height 5ft 8in in 06/13/2024 Blood pressure systolic 131 mm Hg 06/13/2024 Weight 255 lbs 06/13/2024 BMI 38.77 kg/m2 06/13/2024 Procedures Procedure Date Ordered Date Performed Result Body Sit e 87205-LHNJPWE NAIL, 6 OR MORE 12/02/2023 N/A 19666-FHDU SKIN LESIONS, OVER 4 12/02/2023 N/A 19297-CEIFBLW NAIL, 6 OR MORE 03/07/2024 N/A 49491-HGBKZHY SKIN/TISSUE 03/07/2024 N/A 92044 I&D ABSCESS- SIMPLE,SINGLE 03/07/2024 N/A 62379-JKUJ SKIN LESIONS, OVER 4 03/07/2024 N/A 13214-UPPDEEH NAIL, 6 OR MORE 06/13/2024 N/A 05652 I&D ABSCESS- SIMPLE,SINGLE 06/13/2024 N/A 85191-MLPI SKIN LESIONS, OVER 4 06/13/2024 N/A Encounters Encounter Location Date Provider Diagnosis [address] [address] 12/02/2023 David Art Type 2 diabetes mellitus with diabetic polyneuropathy E11.42 ; Tinea unguium B35.1 and Xerosis of skin L85.[address] [address] 03/07/2024 David Art Type 2 diabetes mellitus with diabetic polyneuropathy E11.42 ; Tinea unguium B35.1 ; Xerosis of skin L85.3 ; Other hammer toe(s) (acquired), right foot M20.41 ; Other hammer toe(s) (acquired), left foot M20.42 ; Abscess of toe, left L02.612 and 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.[address] [address] 06/13/2024 David Art Type 2 diabetes mellitus with diabetic polyneuropathy E11.42 ; Tinea unguium B35.1 ; Abscess of toe, left L02.612 and 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.[address] [facility] [address] 10/29/2023 [facility] [address] 03/07/2024 [facility] [address] [address] 03/14/2024 [facility] [address] [address] 09/05/2024 Davidreynold GraysonRubens Assessments Encounter Date Diagnosis (ICD Code) [...] Treatment Pending Test Test Name Order Date 83478-SQEJSAI NAIL, 6 OR MORE 10/12/2020 23876-IFSBVIR NAIL, 6 OR MORE 01/14/2021 08748-DRPVAXL NAIL, 6 OR MORE 04/01/2021 37793-KLRBHIO NAIL, 6 OR MORE 06/03/2021 39403-RHGRAKZ NAIL, 6 OR MORE 09/02/2021 19254-FDQWURZ NAIL, 6 OR MORE 11/13/2021 06139-YEBDAAQ NAIL, 6 OR MORE 01/22/2022 64280-GNDYPNU NAIL, 6 OR MORE 04/02/2022 59566-GMZZFXJ NAIL, 6 OR MORE 06/09/2022 52974-LMCKKHO NAIL, 6 OR MORE 08/20/2022 40513-SVJUDTZ NAIL, 6 OR MORE 10/27/2022 02133-ZVSDYTQ NAIL, 6 OR MORE 12/22/2022 80932-OHJSWTG NAIL, 6 OR MORE 03/04/2023 00330-GPREOVY NAIL, 6 OR MORE 05/13/2023 06100-JGKHDAO NAIL, 6 OR MORE 09/23/2023 56372-ETVOWAQ NAIL, 6 OR MORE 12/02/2023 42273-ZKALOHR NAIL, 6 OR MORE 03/07/2024 96600-SYRNYPN NAIL, 6 OR MORE 06/13/2024 69290-Rajvuxpw Plate 09/23/2023 51907-Ehobakxb Plate 08/20/2022 99891-Iqrgfaee Plate 10/27/2022 87581-Sscxoadk Plate 01/14/2021 37961-Lixueglk Plate 10/12/2020 21092-Rwdyvnsa Plate Each Additional 10/2020 41759- Debride <25 sq cm 04/01/2021 03778- Debride <25 sq cm 09/02/2021 96590- Debride <25 sq cm 08/20/2022 25137- Debride <25 sq cm 01/22/2022 49121- Debride <25 sq cm 01/21/2023 66040- Debride <25 sq cm 03/04/2023 11116-ESINDSX SKIN/TISSUE 01/21/2023 26946-YPYSGGZ SKIN/TISSUE 12/22/2022 64666-GAKOAQH SKIN/TISSUE 11/24/2022 50505-JPLYNTZ SKIN/TISSUE 03/07/2024 02794-OJLBYSM SKIN/TISSUE 06/09/2022 45976-GYIOBSW SKIN/TISSUE 06/23/2022 91921-RIJJLCV SKIN/TISSUE 07/24/2022 36253-AQJQFDB SKIN/TISSUE 10/27/2022 87262-ELJHZDG SKIN/TISSUE 10/12/2020 56663 I&D ABSCESS- SIMPLE,SINGLE 022 47048 I&D ABSCESS- SIMPLE,SINGLE 025 99011 I&D ABSCESS- SIMPLE,SINGLE 024 71982 I&D ABSCESS- SIMPLE,SINGLE 023 20763-FVAH SKIN LESIONS, OVER 4 12/23/19 23 08879-MYQQ SKIN LESIONS, OVER 4 03/04/20 23 89717-PVES SKIN LESIONS, OVER 4 05/13/19 24 72764-OXEY SKIN LESIONS, OVER 4 12/02/19 24 62882-AHVK SKIN LESIONS, OVER 4 09/23/19 24 48208-LRAU SKIN LESIONS, OVER 4 03/07/20 24 25750-AXRD SKIN LESIONS, OVER 4 06/14/19 25 28491-YRPL SKIN LESIONS, OVER 4 11/14/19 22 78578-SXJM SKIN LESIONS, OVER 4 09/03/19 22 22325-ESJB SKIN LESIONS, OVER 4 04/01/19 22 39078-SJUB SKIN LESIONS, OVER 4 06/04/19 22 26991-IFIS SKIN LESIONS, OVER 4 10/13/19 21 72292-IRWN SKIN LESIONS, OVER 4 01/15/20 21 69786-TRZG SKIN LESIONS, OVER 4 10/28/19 23 05758-HPCK SKIN LESIONS, OVER 4 08/21/19 23 08386-SLLU SKIN LESIONS, OVER 4 06/10/19 23 10864-WRCL SKIN LESIONS, OVER 4 01/23/20 22 36287-VCAL SKIN LESIONS, OVER 4 04/02/19 23 30894-Ugdwlheqy, Toes 12/11/2020 Next Appt Details Provider Name:David Art , 10/19/2024 11:30:00 AM, [address] [facility], [address], [place], [address], Insurance Providers Payer Name Payer Address Payer Phone Subscriber Number Group Number Insured Name Patient Relationship to Insured Coverage Start Date Coverage End Date Medicare [facility] [employer] [facility] [address] [place] [address] [id number] Dorie Treadwell Self - patient is the insured [employer] [address] [place] [address] [phone] [id number] Dorie Treadwell Self - patient is the [...]
== END 2024-09-30 09:35 | disposition home or self-care (01) ==
LOC: HO.HOS 09:06
PROVIDERS: Visit Provider Physician Assistant
DX: S82.841A Displaced bimalleolar fracture of right lower leg, initial encounter for closed fracture (principal); Z98.890 Other specified postprocedural states; Z87.81 Personal history of (healed) traumatic fracture
CPT/HCPCS: 99024

== ENCOUNTER → 2024-09-30 09:06 | Outpatient (BNVA) | payer MEDICARE, SELFPAY | PROVIDERS: Visit Provider Physician Assistant | DX: S82.841D Displaced bimalleolar fracture of right lower leg, subsequent encounter for closed fracture with routine healing (principal); S91.001A Unspecified open wound, right ankle, initial encounter; Z98.890 Other specified postprocedural states; Z87.81 Personal history of (healed) traumatic fracture | CPT/HCPCS: 99212 ==

== ENCOUNTER 2024-10-06 11:49 | Outpatient (AMB) | payer MEDICARE, SELFPAY ==
--- NOTE | 2024-10-06 12:13 | MHC.OFFVIS ---
Vital Signs 10/06/24 12:17 Height 5 ft 8 in Weight 224 lb BMI 34.1 Intake Visit Reasons: PO - Right Ankle ORIF 08/10/24 NE (wound check) Intake Note: Dorie is a 73 year old female who presents today for a post operative wound check s/p right ankle ORIF, DOS: 08/10/[address] Clifford. At her last visit, she was advised to do daily dress changes. A prescription was sent for silver sulfadiazine 1% topical to help with wound healing. Allergies amoxicillin Allergy (Verified 10/06/24 12:17) Rash Iodinated Contrast Media (Contrast Dye) Allergy (Verified 10/06/24 12:17) Rash, Agness like Blood Boiling nickel Allergy (Verified 10/06/24 12:17) Rash rubber, unspecified Allergy (Verified 10/06/24 12:17) + Rxn from allergy testing Sulfa (Sulfonamide Antibiotics) Allergy (Verified 10/06/24 12:17) Swelling HPI HPI PO - Right Ankle ORIF 08/10/24 NE (wound check): Details: Ms. Treadwell is a 73-year-old female who presents to the office today for a wound check status post right ankle ORIF on 08/10/2024. At her last appointment on 09/30/2024 the patient presented with a quarter-size area of skin breakdown on the medial aspect of the right ankle. The wound was dressed with a nonstick gauze an ABD for additional padding and was secured with an Carlton wrap. She was placed back into the tall walking boot and instructed to follow up in 1 week for wound check. Today, the patient reports she feels that the wound has gotten slightly better. She has been doing daily dressing changes. Denies any pain at this time. It does not appear that she picked up the silver sulfadiazine as prescribed at the last visit. [facility] Medical History Fatty liver History of chemotherapy Arthritis of spine Back pain Hx of diarrhea Diabetes History of headache TAMARA (obstructive sleep apnea) Elevated cholesterol HTN (hypertension) Surgical History Hx of varicose vein ligation and stripping History of lumpectomy of right breast History of lumpectomy of left breast History of kidney surgery History of nephrectomy, left Social History Are you a primary career development consultant to a significant other at home: No Do you presently have visiting nurse or other home services: No Comment: COUNTS CORRECT Patient Tobacco Use Status: Former Tobacco user Tobacco use type: Cigarette Second Hand Smoke Exposure: No service: No Review of Systems Const All systems reviewed & are unremarkable except as noted in HPI and below Physical Exam Vital Signs: BMI result Body Mass Index 34.1 Extrem Other: Right ankle medial malleolus has a roughly quarter-size area of skin breakdown. There is healthy granulation tissue in the center of this area. Patient is able to demonstrate dorsiflexion, plantar flexion, pronation and supination without any pain. NVI. Assessment & Plan Assessment & Plan (1) Bimalleolar fracture of right ankle: Code(s): S82.841A - Displaced bimalleolar fracture of right lower leg, initial encounter for closed fracture Category: Medical (2) Status post ORIF of fracture of ankle: Code(s): Z98.890 - Other specified postprocedural states; Z87.81 - Personal history of (healed) traumatic fracture Category: Surgical Plan Ms. Treadwell is a 73-year-old female who presents to the office today for a wound check status post right ankle ORIF on 08/10/2024. At her last appointment on 09/30/2024 the patient presented with a quarter-size area of skin breakdown on the medial aspect of the right ankle. The wound was dressed with a nonstick gauze an ABD for additional padding and was secured with an Carlton wrap. She was placed back into the tall walking boot and instructed to follow up in 1 week for wound check. Today, the patient reports she feels that the wound has gotten slightly better. She has been doing daily dressing changes. Denies any pain at this time. It does not appear that she picked up the silver sulfadiazine as prescribed at the last visit. While in the office today, the wound was again dressed with a foam island dressing with additional dressings to take home for daily dressing changes for 1 week. I have also instructed the patient to discontinue the boot and transition to a supportive walking shoe since date of surgery was roughly 7.5 weeks ago. She will follow up in 1 week for wound check, sooner if needed. It is important to note that this patient is a diabetic. She reports that her glucose levels are controlled. Coding Level of Care Code Global (47467) Diagnoses Bimalleolar fracture of right ankle S82.841A Status post ORIF of fracture of ankle Z98.890; Z87.81
[2024-10-06 12:17] VITALS: BMI 34.1
--- OUTSIDE RECORDS SUMMARY | 2024-10-06 12:28 | XMS_ITS | Encounter Summary ---
Author Organization [facility] Address [address] [place] [address] Care Team Providers Care Tax Representative Name Role Phone Taylor Contreras MD Primary Care Provider [phone] Encounter Details Date Type Department Care Team (Late st Contact Info) Description 08/13/2024 Lab Requisition [facility] - Main Lab [address] [facility] [place] [address] Elizabeth Parker MD [address] [place] [address] Encounter for other general examination Social History [...] CBC auto differential (08/13/2024 6:45 AM EDT) [facility] WBC 8.1 4.8 - 10.8 K/mcL LAB HEMETOLOGY METHOD 08/13/2024 10:53 AM [facility] RBC 3.30(L) 3.80 - 4.80 M/mcL LAB HEMETOLOGY METHOD 08/13/2024 10:53 AM [facility] Hemoglobin 9.2(L) 11.5 - 16.0 g/dL LAB HEMETOLOGY METHOD 08/13/2024 10:53 AM [facility] Hematocrit 30.7(L) 35.0 - 47.0 % LAB HEMETOLOGY METHOD 08/13/2024 10:53 AM [facility] MCV 94.2 79.0 - 98.0 FL LAB HEMETOLOGY METHOD 08/13/2024 10:53 AM [facility] MCH 28.2 27.0 - 32.0 pcg LAB HEMETOLOGY METHOD 08/13/2024 10:53 AM [facility] MCHC 30.0(L) 32.0 - 37.0 g/dL LAB HEMETOLOGY METHOD 08/13/2024 10:53 AM [facility] RDW 14.6 11.0 - 15.0 % LAB HEMETOLOGY METHOD 08/13/2024 10:53 AM [facility] Platelets 339 130 - 400 K/mcL LAB HEMETOLOGY METHOD 08/13/2024 10:53 AM [facility] MPV 9.8 7.0 - 11.0 FL LAB HEMETOLOGY METHOD 08/13/2024 10:53 AM [facility] NRBC 0.2 <1.0 % LAB HEMETOLOGY METHOD 08/13/2024 10:53 AM [facility] NRBC Absolute 0.02 <0.10 K/mcL LAB HEMETOLOGY METHOD 08/13/2024 10:53 AM [facility] Neutrophils Relative 50.6 % LAB HEMETOLOGY METHOD 08/13/2024 10:53 AM [facility] Lymphocytes Relative 36.0 % LAB HEMETOLOGY METHOD 08/13/2024 10:53 AM [facility] Monocytes Relative 9.4 % LAB HEMETOLOGY METHOD 08/13/2024 10:53 AM [facility] Eosinophils Relative 2.0 % LAB HEMETOLOGY METHOD 08/13/2024 10:53 AM [facility] Basophils Relative 0.6 % LAB HEMETOLOGY METHOD 08/13/2024 10:53 AM [facility] Immature Granulocytes Relative 1.4 % LAB HEMETOLOGY METHOD 08/13/2024 10:53 AM [facility] Neutrophils Absolute 4.12 1.50 - 7.00 K/mcL LAB HEMETOLOGY METHOD 08/13/2024 10:53 AM [facility] Lymphocytes Absolute 2.92 1.00 - 5.00 K/mcL LAB HEMETOLOGY METHOD 08/13/2024 10:53 AM [facility] Monocytes Absolute 0.76 0.20 - 1.00 K/mcL LAB HEMETOLOGY METHOD 08/13/2024 10:53 AM [facility] Eosinophils Absolute 0.16 0.00 - 0.50 K/mcL LAB HEMETOLOGY METHOD 08/13/2024 10:53 AM [facility] Basophils Absolute 0.05 0.00 - 0.20 K/mcL LAB HEMETOLOGY METHOD 08/13/2024 10:53 AM [facility] Immature Granulocytes Absolute 0.11(H) 0.00 - 0.03 K/mcL LAB HEMETOLOGY METHOD 08/13/2024 10:53 AM EDT [facility] Blood Venous blood specimen / Unknown Venipuncture / Unknown 08/13/2024 6:45 AM EDT 08/13/2024 9:49 AM EDT us Elizabeth Parker MD LAB BLOOD ORDERABLES Final Resu lt Performing Organization Address [facility]/ZIP Co de Phone Number [facility] [address] [place] [address], [place] [phone] * (ABNORMAL) Magnesium (08/13/2024 6:45 AM EDT) Pathologist [facility] Magnesium 1.8(L) 1.9 - 2.6 mg/dL LAB CHEMISTRY METHOD 08/13/2024 11:24 AM EDT [facility] Blood Venous blood specimen / Unknown Venipuncture / Unknown 08/13/2024 6:45 AM EDT 08/13/2024 9:49 AM EDT us Elizabeth Parker MD LAB BLOOD ORDERABLES Final Resu lt Performing Organization Address [facility] de Phone Number [facility] [address] [place] [address], [place] [phone] * (ABNORMAL) Comprehensive metabolic panel (08/13/2024 6:45 AM EDT) Pathologist [facility] Sodium 143 133 - 145 mmol/L LAB CHEMISTRY METHOD 08/13/2024 11:24 AM EDT [facility] Potassium 4.3 3.5 - 5.5 mmol/L LAB CHEMISTRY METHOD 08/13/2024 11:24 AM EDT [facility] Chloride 106 96 - 110 mmol/L LAB CHEMISTRY METHOD 08/13/2024 11:24 AM EDT [facility] CO2 30 21 - 32 mmol/L LAB CHEMISTRY METHOD 08/13/2024 11:24 AM EDT [facility] Anion Gap 7 3 - 11 LAB CHEMISTRY METHOD 08/13/2024 11:24 AM [facility] Glucose 83 70 - 100 mg/dL LAB CHEMISTRY METHOD 08/13/2024 11:24 AM [facility] BUN 23 5 - 25 mg/dL LAB CHEMISTRY METHOD 08/13/2024 11:24 AM [facility] Creatinine 1.05 0.50 - 1.10 mg/dL LAB CHEMISTRY METHOD 08/13/2024 11:24 AM [facility] eGFR 56(L) >=60 mL/min/1. 73m2 LAB CHEMISTRY METHOD 08/13/2024 11:24 AM [facility] Comment:Calculation based on the Chronic Kidney Disease Epidemiology Collaboration (CKD-EPI) equation refit without adjustment for race. BUN/Creatinine Ratio 21.9 LAB CHEMISTRY METHOD 08/13/2024 11:24 AM [facility] Calcium 8.9 8.5 - 10.5 mg/dL LAB CHEMISTRY METHOD 08/13/2024 11:24 AM [facility] AST (SGOT) 35 10 - 42 unit/L LAB CHEMISTRY METHOD 08/13/2024 11:24 AM [facility] ALT (SGPT) 26 10 - 60 unit/L LAB CHEMISTRY METHOD 08/13/2024 11:24 AM [facility] Alkaline Phosphatase 120 42 - 121 unit/L LAB CHEMISTRY METHOD 08/13/2024 11:24 AM [facility] Total Protein 6.4 6.0 - 8.0 g/dL LAB CHEMISTRY METHOD 08/13/2024 11:24 AM [facility] Albumin 2.9(L) 3.2 - 5.0 g/dL LAB CHEMISTRY METHOD 08/13/2024 11:24 AM [facility] Total Bilirubin 0.3 0.0 - 1.4 mg/dL LAB CHEMISTRY METHOD 08/13/2024 11:24 AM EDT [facility] Blood Venous blood specimen / Unknown Venipuncture / Unknown 08/13/2024 6:45 AM EDT 08/13/2024 9:49 AM EDT us Elizabeth Parker MD LAB BLOOD ORDERABLES Final Resu lt [facility] [address] [place] [address], documented in this encounter Visit Diagnoses Diagnosis Encounter for other general examination documented in this encounter Care Teams Tax Representative Relationship Specialty Start Date End Date Taylor Contreras MD [address] [place] [address] PCP - General Internal Medicine 02/18/11 documented as of this encounter
--- OUTSIDE RECORDS SUMMARY | 2024-10-06 12:28 | XMS_ITS | Clinical Summary ---
Author Organization [facility] Address [address] [place] [address] Care Team Providers Care Secondary English Teacher Name Role Phone Taylor Contreras MD Primary Care Provider [phone] Josselyn Rice RN Unavailable [phone] Allergies Active Allergy Reactions Criticality Noted [...] patient's age to complete this topic Insurance [facility] [place] [place] [address] MEDICARE PART A & B [facility] PPO Advance Directives * Full Code (Latest Code Status on File) Date Activated Date Inactivated Comments 11/05/2015 5:07 PM 11/11/2015 9:17 PM * Full Code Date Activated Date Inactivated Comments 11/05/2015 6:11 AM 11/05/2015 5:07 PM Care Teams Secondary English Teacher Relationship Specialty Start Date End Date Taylor Contreras MD [address] [facility] [address] [place] [address] PCP - General Internal Medicine 10/05/15 Josselyn Rice RN [address] [place] [address] Oncology Nurse Navigator 11/07/15
--- OUTSIDE RECORDS SUMMARY | 2024-10-06 12:28 | XMS_ITS | Patient Health Record ---
Author Organization [facility] Address [address] [place] [address] Care Team Providers Care Textile Conservator Name Role Phone Taylor Contreras MD Primary Care Provider Unavailab David Cano Unavailable [phone] Allergies Allergen (clinical drug ingredient) Drug/Non Drug [...] Problem Acquired hammer toe of right foot (777751202909141 5) Other hammer toe(s) (acquired), right foot (M20.41) Active confirmed Response to treatment,Impr ovement Problem Acquired hammer toe of left foot (196890804509880 3) Other hammer toe(s) (acquired), left foot (M20.42) Active confirmed Response to treatment,Impr ovement Problem Polyneuropathy due to type 2 diabetes mellitus (969349775) Type 2 diabetes mellitus with diabetic polyneuropathy [...] Ordered Date Performed Result Body Sit e 45398-TJGUINI NAIL, 6 OR MORE 12/02/2023 N/A 90767-EDIL SKIN LESIONS, OVER 4 12/02/2023 N/A 36716-TRTGZMJ NAIL, 6 OR MORE 03/07/2024 N/A 50055-NECAGYG SKIN/TISSUE 03/07/2024 N/A 36976 I&D ABSCESS- SIMPLE,SINGLE 03/07/2024 N/A 44215-QFDN SKIN LESIONS, OVER 4 03/07/2024 N/A 31382-FQENEEE NAIL, 6 OR MORE 06/13/2024 N/A 69468 I&D ABSCESS- SIMPLE,SINGLE 06/13/2024 N/A 89931-CUUO SKIN LESIONS, OVER 4 06/13/2024 N/A Encounters Encounter Location Date Provider Diagnosis [facility] [address] [place] [phone] 12/02/2023 Davidreynold Art Type 2 diabetes mellitus with diabetic polyneuropathy E11.42 ; Tinea unguium B35.1 and Xerosis of skin L85.3 [facility] [address] [place] [phone] 03/07/2024 Davidreynold Art Type 2 diabetes mellitus with diabetic polyneuropathy E11.42 ; Tinea unguium B35.1 ; Xerosis of skin L85.3 ; Other hammer toe(s) (acquired), right foot M20.41 ; Other hammer toe(s) (acquired), left foot M20.42 ; Abscess of toe, left L02.612 and 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.[address] [address] 06/13/2024 David Art Type 2 diabetes mellitus with diabetic polyneuropathy E11.42 ; Tinea unguium B35.1 ; Abscess of toe, left L02.612 and 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.[address] [facility] [address] 10/29/2023 David Art [facility] [address] 03/07/2024 [facility]reynold Art [facility] [address] [address] 03/14/2024 David Rubens [facility] [address] [address] 09/05/2024 David Art Assessments Encounter Date Diagnosis [...] Treatment Pending Test Test Name Order Date 42440-ESGEKTL NAIL, 6 OR MORE 10/12/2020 65337-LKINTMO NAIL, 6 OR MORE 01/14/2021 76903-NEDYSXL NAIL, 6 OR MORE 04/01/2021 56912-KDCXVWF NAIL, 6 OR MORE 06/03/2021 75704-GPSVMLE NAIL, 6 OR MORE 09/02/2021 14665-DDJMHSJ NAIL, 6 OR MORE 11/13/2021 68831-ZFFSHWE NAIL, 6 OR MORE 01/22/2022 34521-ZRMZAMD NAIL, 6 OR MORE 04/02/2022 35167-HFHVUOQ NAIL, 6 OR MORE 06/09/2022 18024-MKOBHKK NAIL, 6 OR MORE 08/20/2022 02687-LEHYMGN NAIL, 6 OR MORE 10/27/2022 32796-PZNNJAW NAIL, 6 OR MORE 12/22/2022 15233-PSLGVOA NAIL, 6 OR MORE 03/04/2023 71649-UQTITPK NAIL, 6 OR MORE 05/13/2023 51914-VJWIKBE NAIL, 6 OR MORE 09/23/2023 15464-SICKPRC NAIL, 6 OR MORE 12/02/2023 44327-XZUWWUB NAIL, 6 OR MORE 03/07/2024 47541-TLXUYIS NAIL, 6 OR MORE 06/13/2024 43751-Uoxvkjgx Plate 09/23/2023 10510-Jhakltko Plate 08/20/2022 83580-Booqjkvg Plate 10/27/2022 10849-Uopbqbex Plate 01/14/2021 26310-Arpgxcef Plate 10/12/2020 60051-Qqxbczhi Plate Each Additional 10/2020 85685- Debride <25 sq cm 04/01/2021 63190- Debride <25 sq cm 09/02/2021 95115- Debride <25 sq cm 08/20/2022 92224- Debride <25 sq cm 01/22/2022 02794- Debride <25 sq cm 01/21/2023 52610- Debride <25 sq cm 03/04/2023 39967-CYLTKPR SKIN/TISSUE 01/21/2023 49253-BLHSRMK SKIN/TISSUE 12/22/2022 20479-HDFZDCN SKIN/TISSUE 11/24/2022 94813-LOWHGJR SKIN/TISSUE 03/07/2024 63314-OFEKEZH SKIN/TISSUE 06/09/2022 66222-XFMQGPK SKIN/TISSUE 06/23/2022 11572-YBBXKSR SKIN/TISSUE 07/24/2022 13995-RVRDPVV SKIN/TISSUE 10/27/2022 48011-PRIPRYQ SKIN/TISSUE 10/12/2020 52044 I&D ABSCESS- SIMPLE,SINGLE 022 22188 I&D ABSCESS- SIMPLE,SINGLE 025 87966 I&D ABSCESS- SIMPLE,SINGLE 024 69017 I&D ABSCESS- SIMPLE,SINGLE 023 41722-CQSK SKIN LESIONS, OVER 4 12/23/19 23 57305-CISH SKIN LESIONS, OVER 4 03/04/20 23 69543-QLMQ SKIN LESIONS, OVER 4 05/13/19 24 75482-WLKD SKIN LESIONS, OVER 4 12/02/19 24 36453-MWNP SKIN LESIONS, OVER 4 09/23/19 24 29054-AXKN SKIN LESIONS, OVER 4 03/07/20 24 61554-LRVI SKIN LESIONS, OVER 4 06/14/19 25 39095-WVRB SKIN LESIONS, OVER 4 11/14/19 22 24503-YWGP SKIN LESIONS, OVER 4 09/03/19 22 13370-TZNO SKIN LESIONS, OVER 4 04/01/19 22 15677-EFPA SKIN LESIONS, OVER 4 06/04/19 22 94765-NKZM SKIN LESIONS, OVER 4 10/13/19 21 59548-BXKQ SKIN LESIONS, OVER 4 01/15/20 21 54210-IJRF SKIN LESIONS, OVER 4 10/28/19 23 56752-VEDK SKIN LESIONS, OVER 4 08/21/19 23 71714-AKQQ SKIN LESIONS, OVER 4 06/10/19 23 31957-JENO SKIN LESIONS, OVER 4 01/23/20 22 11833-DBGD SKIN LESIONS, OVER 4 04/02/19 23 74284-Xbhmgfpxd, Toes 12/11/2020 Next Appt Details Provider Name:David Art , 10/19/2024 11:30:00 AM, [address] [facility], [address], [place], [address], Insurance Providers Payer Name Payer Address Payer Phone Subscriber Number Group Number Insured Name Patient Relationship to Insured Coverage Start Date Coverage End Date Medicare National [employer]t [employer] [address] [place] [address] [id number] Dorie Treadwell Self - patient is the insured [employer] [address] [place] [address] [phone] [id number] Dorie Treadwell Self - patient is the [...]
--- OUTSIDE RECORDS SUMMARY | 2024-10-06 12:28 | XMS_ITS | Encounter Summary ---
Author Organization [facility] Address [address] [facility] [address] [place] [address] Phone Care Team Providers Care Water Systems Engineer Name Role Phone Taylor Contreras MD Primary Care Provider [phone] Encounter Details Date Type Department Care Team (Late Contact Info) Description 06/06/2021 Telephone [facility] [address] [facility] [address] [place] [address] Gary Brennan MD [address] [place] [phone] Social History Tobacco Use Types Packs/Day Years [...] for guidance. Please call her back at [phone] Thank you documented in this encounter Plan of Treatment Upcoming Encounters Date Type Department Care Team (Late st Contact Info) Description 02/27/2025 1:00 PM EST Office Visit [facility] [address] [facility] [address] [place] [address] Regine Young ARNP [address] [facility] [address] [place] [address] documented as of this encounter Visit Diagnoses Not on filedocumented in this encounter Care Teams Water Systems Engineer Relationship Specialty Start Date End Date Taylor Contreras MD [address] [place], [place] PCP - General 03/19/20 documented as of this encounter
== END 2024-10-06 12:35 | disposition home or self-care (01) ==
LOC: HO.HOS 11:50
PROVIDERS: Visit Provider Physician Assistant
DX: S82.841A Displaced bimalleolar fracture of right lower leg, initial encounter for closed fracture (principal); Z98.890 Other specified postprocedural states; Z87.81 Personal history of (healed) traumatic fracture
CPT/HCPCS: 99024

== ENCOUNTER → 2024-10-06 11:49 | Outpatient (BNVA) | payer MEDICARE, SELFPAY | PROVIDERS: Visit Provider Physician Assistant | DX: S82.841D Displaced bimalleolar fracture of right lower leg, subsequent encounter for closed fracture with routine healing (principal); Z98.890 Other specified postprocedural states; Z87.81 Personal history of (healed) traumatic fracture | CPT/HCPCS: 99212 ==

== ENCOUNTER 2024-10-14 08:07 | Outpatient (REF) | payer MEDICARE, SELFPAY ==
--- NOTE | ~2024-10-14 | XR_ITS ---
EXAMINATION: XR ANKLE 3 OR MORE VIEWS RIGHT HISTORY: M25.579 - Pain in unspecified ankle and joints of unspecified foot COMPARISON: Comparison is made with the prior examination dated 09/22/2024. FINDINGS: Three views of the right ankle are submitted. Osseous mineralization is normal. The patient is again noted to be status post internal fixation of the distal fibula with a sideplate and multiple orthopedic screws as well as internal fixation of the medial malleolus. Both fractures are less well visualized, consistent with healing. The joint spaces are preserved. There is persistent mild soft tissue swelling. XR/XR ankle RT min 3V IMPRESSION: Healing internally fixed fractures of the distal fibula and medial malleolus. Electronically signed by: Christiano Senior MD 10/14/2024 02:33 PM EDT
--- OUTSIDE RECORDS SUMMARY | 2024-10-17 08:17 | XMS_ITS | Encounter Summary ---
Author Organization [facility] Address [address] [place] [address] Care Team Providers Care Stationary Plant Operators Name Role Phone Taylor Contreras MD Primary Care Provider [phone] Encounter Details Date Type Department Care Team (Late st Contact Info) Description 08/13/2024 Lab Requisition [facility] - Main Lab [address] [facility] [place] [address] Elizabeth Parker MD [address] [place] [address] Encounter for other general examination Social History [...] CBC auto differential (08/13/2024 6:45 AM EDT) [facility] WBC 8.1 4.8 - 10.8 K/mcL LAB HEMETOLOGY METHOD 08/13/2024 10:53 AM [facility] RBC 3.30(L) 3.80 - 4.80 M/mcL LAB HEMETOLOGY METHOD 08/13/2024 10:53 AM [facility] Hemoglobin 9.2(L) 11.5 - 16.0 g/dL LAB HEMETOLOGY METHOD 08/13/2024 10:53 AM [facility] Hematocrit 30.7(L) 35.0 - 47.0 % LAB HEMETOLOGY METHOD 08/13/2024 10:53 AM [facility] MCV 94.2 79.0 - 98.0 FL LAB HEMETOLOGY METHOD 08/13/2024 10:53 AM [facility] MCH 28.2 27.0 - 32.0 pcg LAB HEMETOLOGY METHOD 08/13/2024 10:53 AM [facility] MCHC 30.0(L) 32.0 - 37.0 g/dL LAB HEMETOLOGY METHOD 08/13/2024 10:53 AM [facility] RDW 14.6 11.0 - 15.0 % LAB HEMETOLOGY METHOD 08/13/2024 10:53 AM [facility] Platelets 339 130 - 400 K/mcL LAB HEMETOLOGY METHOD 08/13/2024 10:53 AM [facility] MPV 9.8 7.0 - 11.0 FL LAB HEMETOLOGY METHOD 08/13/2024 10:53 AM [facility] NRBC 0.2 <1.0 % LAB HEMETOLOGY METHOD 08/13/2024 10:53 AM [facility] NRBC Absolute 0.02 <0.10 K/mcL LAB HEMETOLOGY METHOD 08/13/2024 10:53 AM [facility] Neutrophils Relative 50.6 % LAB HEMETOLOGY METHOD 08/13/2024 10:53 AM [facility] Lymphocytes Relative 36.0 % LAB HEMETOLOGY METHOD 08/13/2024 10:53 AM [facility] Monocytes Relative 9.4 % LAB HEMETOLOGY METHOD 08/13/2024 10:53 AM [facility] Eosinophils Relative 2.0 % LAB HEMETOLOGY METHOD 08/13/2024 10:53 AM [facility] Basophils Relative 0.6 % LAB HEMETOLOGY METHOD 08/13/2024 10:53 AM [facility] Immature Granulocytes Relative 1.4 % LAB HEMETOLOGY METHOD 08/13/2024 10:53 AM [facility] Neutrophils Absolute 4.12 1.50 - 7.00 K/mcL LAB HEMETOLOGY METHOD 08/13/2024 10:53 AM [facility] Lymphocytes Absolute 2.92 1.00 - 5.00 K/mcL LAB HEMETOLOGY METHOD 08/13/2024 10:53 AM [facility] Monocytes Absolute 0.76 0.20 - 1.00 K/mcL LAB HEMETOLOGY METHOD 08/13/2024 10:53 AM [facility] Eosinophils Absolute 0.16 0.00 - 0.50 K/mcL LAB HEMETOLOGY METHOD 08/13/2024 10:53 AM [facility] Basophils Absolute 0.05 0.00 - 0.20 K/mcL LAB HEMETOLOGY METHOD 08/13/2024 10:53 AM [facility] Immature Granulocytes Absolute 0.11(H) 0.00 - 0.03 K/mcL LAB HEMETOLOGY METHOD 08/13/2024 10:53 AM EDT [facility] Blood Venous blood specimen / Unknown Venipuncture / Unknown 08/13/2024 6:45 AM EDT 08/13/2024 9:49 AM EDT us Elizabeth Parker MD LAB BLOOD ORDERABLES Final Resu lt Performing Organization Address [facility]/ZIP Co de Phone Number [facility] [address] [place] [address], [place] [phone] * (ABNORMAL) Magnesium (08/13/2024 6:45 AM EDT) Pathologist [facility] Magnesium 1.8(L) 1.9 - 2.6 mg/dL LAB CHEMISTRY METHOD 08/13/2024 11:24 AM EDT [facility] Blood Venous blood specimen / Unknown Venipuncture / Unknown 08/13/2024 6:45 AM EDT 08/13/2024 9:49 AM EDT us Elizabeth Parker MD LAB BLOOD ORDERABLES Final Resu lt Performing Organization Address [facility] de Phone Number [facility] [address] [place] [address], [place] [phone] * (ABNORMAL) Comprehensive metabolic panel (08/13/2024 6:45 AM EDT) Pathologist [facility] Sodium 143 133 - 145 mmol/L LAB CHEMISTRY METHOD 08/13/2024 11:24 AM EDT [facility] Potassium 4.3 3.5 - 5.5 mmol/L LAB CHEMISTRY METHOD 08/13/2024 11:24 AM EDT [facility] Chloride 106 96 - 110 mmol/L LAB CHEMISTRY METHOD 08/13/2024 11:24 AM EDT [facility] CO2 30 21 - 32 mmol/L LAB CHEMISTRY METHOD 08/13/2024 11:24 AM EDT [facility] Anion Gap 7 3 - 11 LAB CHEMISTRY METHOD 08/13/2024 11:24 AM [facility] Glucose 83 70 - 100 mg/dL LAB CHEMISTRY METHOD 08/13/2024 11:24 AM [facility] BUN 23 5 - 25 mg/dL LAB CHEMISTRY METHOD 08/13/2024 11:24 AM [facility] Creatinine 1.05 0.50 - 1.10 mg/dL LAB CHEMISTRY METHOD 08/13/2024 11:24 AM [facility] eGFR 56(L) >=60 mL/min/1. 73m2 LAB CHEMISTRY METHOD 08/13/2024 11:24 AM [facility] Comment:Calculation based on the Chronic Kidney Disease Epidemiology Collaboration (CKD-EPI) equation refit without adjustment for race. BUN/Creatinine Ratio 21.9 LAB CHEMISTRY METHOD 08/13/2024 11:24 AM [facility] Calcium 8.9 8.5 - 10.5 mg/dL LAB CHEMISTRY METHOD 08/13/2024 11:24 AM [facility] AST (SGOT) 35 10 - 42 unit/L LAB CHEMISTRY METHOD 08/13/2024 11:24 AM [facility] ALT (SGPT) 26 10 - 60 unit/L LAB CHEMISTRY METHOD 08/13/2024 11:24 AM [facility] Alkaline Phosphatase 120 42 - 121 unit/L LAB CHEMISTRY METHOD 08/13/2024 11:24 AM [facility] Total Protein 6.4 6.0 - 8.0 g/dL LAB CHEMISTRY METHOD 08/13/2024 11:24 AM [facility] Albumin 2.9(L) 3.2 - 5.0 g/dL LAB CHEMISTRY METHOD 08/13/2024 11:24 AM [facility] Total Bilirubin 0.3 0.0 - 1.4 mg/dL LAB CHEMISTRY METHOD 08/13/2024 11:24 AM EDT [facility] Blood Venous blood specimen / Unknown Venipuncture / Unknown 08/13/2024 6:45 AM EDT 08/13/2024 9:49 AM EDT us Elizabeth Parker MD LAB BLOOD ORDERABLES Final Resu lt [facility] [address] [place] [address], documented in this encounter Visit Diagnoses Diagnosis Encounter for other general examination documented in this encounter Care Teams Stationary Plant Operators Relationship Specialty Start Date End Date Taylor Contreras MD [address] [place] [address] PCP - General Internal Medicine 02/18/11 documented as of this encounter
--- OUTSIDE RECORDS SUMMARY | 2024-10-17 08:17 | XMS_ITS | Clinical Summary ---
Author Organization [facility] Address [address] [place] [address] Care Team Providers Care Emergency Medical Service Coordinator Name Role Phone Taylor Contreras MD Primary Care Provider [phone] Josselyn Rice RN Unavailable [phone] Allergies Active Allergy Reactions Criticality Noted [...] patient's age to complete this topic [place] [id number] MEDICARE PART A & B [facility] PPO Advance Directives * Full Code (Latest Code Status on File) Date Activated Date Inactivated Comments 11/05/2015 5:07 PM 11/11/2015 9:17 PM * Full Code Date Activated Date Inactivated Comments 11/05/2015 6:11 AM 11/05/2015 5:07 PM Care Teams Emergency Medical Service Coordinator Relationship Specialty Start Date End Date Taylor Contreras MD [address] [facility] [address] [place] [address] PCP - General Internal Medicine 10/05/15 Josselyn Rice RN [address] [place] [address] Oncology Nurse Navigator 11/07/15
--- OUTSIDE RECORDS SUMMARY | 2024-10-17 08:18 | XMS_ITS | Patient Health Record ---
Author Organization [facility] Address [address] [place] [address] Care Team Providers Care Health Program Director Name Role Phone Taylor Contreras MD Primary Care Provider Unavailab David Cano Unavailable [phone] Allergies Allergen (clinical drug ingredient) Drug/Non Drug [...] Problem Acquired hammer toe of right foot (897086786283622 5) Other hammer toe(s) (acquired), right foot (M20.41) Active confirmed Response to treatment,Impr ovement Problem Acquired hammer toe of left foot (769955422623415 3) Other hammer toe(s) (acquired), left foot (M20.42) Active confirmed Response to treatment,Impr ovement Problem Polyneuropathy due to type 2 diabetes mellitus (774199034) Type 2 diabetes mellitus with diabetic polyneuropathy (E11.42) Active confirmed Problem Diabetic foot ulcer (973577442) 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) Active confirmed Response to treatment Nonapplicable Vital Signs Blood pressure diastolic 65 mm Hg 06/13/2024 Height 5ft 8in in 06/13/2024 Blood pressure systolic 131 mm Hg 06/13/2024 Weight 255 lbs 06/13/2024 BMI 38.77 kg/m2 06/13/2024 Procedures Procedure Date Ordered Date Performed Result Body Sit e 80893-DSLMZZV NAIL, 6 OR MORE 12/02/2023 N/A 89851-QSEC SKIN LESIONS, OVER 4 12/02/2023 N/A 34768-GHULMBL NAIL, 6 OR MORE 03/07/2024 N/A 49502-RDBOXEW SKIN/TISSUE 03/07/2024 N/A 50594 I&D ABSCESS- SIMPLE,SINGLE 03/07/2024 N/A 72388-BALB SKIN LESIONS, OVER 4 03/07/2024 N/A 05497-PPRWHMH NAIL, 6 OR MORE 06/13/2024 N/A 16830 I&D ABSCESS- SIMPLE,SINGLE 06/13/2024 N/A 94305-ZDLM SKIN LESIONS, OVER 4 06/13/2024 N/A Encounters Encounter Location Date Provider Diagnosis [address] [address] 12/02/2023 David Art Type 2 diabetes mellitus with diabetic polyneuropathy E11.42 ; Tinea unguium B35.1 and Xerosis of skin L85.[address] [address] 03/07/2024 David Art Type 2 diabetes mellitus with diabetic polyneuropathy E11.42 ; Tinea unguium B35.1 ; Xerosis of skin L85.3 ; Other hammer toe(s) (acquired), right foot M20.41 ; Other hammer toe(s) (acquired), left foot M20.42 ; Abscess of toe, left L02.612 and 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.[address] [address] 06/13/2024 David Art Type 2 diabetes mellitus with diabetic polyneuropathy E11.42 ; Tinea unguium B35.1 ; Abscess of toe, left L02.612 and 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.[address] [facility] [address] 10/29/2023 [facility] [address] 03/07/2024 David Rubens [facility] [address] [address] 03/14/2024 [facility] [address] [address] 09/05/2024 Davidreynold GraysonRubens Assessments Encounter Date Diagnosis [...] Treatment Pending Test Test Name Order Date 48158-SKVLYER NAIL, 6 OR MORE 10/12/2020 09068-RDHYWRF NAIL, 6 OR MORE 01/14/2021 27060-KZXJBIQ NAIL, 6 OR MORE 04/01/2021 09599-WIDDCRN NAIL, 6 OR MORE 06/03/2021 95833-ORWPGXX NAIL, 6 OR MORE 09/02/2021 78258-PASJCEV NAIL, 6 OR MORE 11/13/2021 40531-STQUXOC NAIL, 6 OR MORE 01/22/2022 37383-MUJZRJT NAIL, 6 OR MORE 04/02/2022 39228-BGUYAXY NAIL, 6 OR MORE 06/09/2022 07695-GDCNYUP NAIL, 6 OR MORE 08/20/2022 42695-KRIDZNX NAIL, 6 OR MORE 10/27/2022 63018-XXHWPDP NAIL, 6 OR MORE 12/22/2022 39196-RXQKNGY NAIL, 6 OR MORE 03/04/2023 95463-HDEYWDV NAIL, 6 OR MORE 05/13/2023 38639-SCYKANT NAIL, 6 OR MORE 09/23/2023 37394-JLMVWPJ NAIL, 6 OR MORE 12/02/2023 21032-WHOQKUO NAIL, 6 OR MORE 03/07/2024 52686-MAVNOAI NAIL, 6 OR MORE 06/13/2024 37010-Yogplcwz Plate 09/23/2023 22757-Bzhgwgls Plate 08/20/2022 85497-Xpgfhocc Plate 10/27/2022 71106-Qjgelzxi Plate 01/14/2021 60655-Bdznvyej Plate 10/12/2020 38507-Olxtccyk Plate Each Additional 10/2020 50398- Debride <25 sq cm 04/01/2021 25861- Debride <25 sq cm 09/02/2021 07483- Debride <25 sq cm 08/20/2022 53109- Debride <25 sq cm 01/22/2022 14306- Debride <25 sq cm 01/21/2023 49788- Debride <25 sq cm 03/04/2023 32331-RQWNNFT SKIN/TISSUE 01/21/2023 66030-MKSSORL SKIN/TISSUE 12/22/2022 57532-SQADRUL SKIN/TISSUE 11/24/2022 86524-KUABCFL SKIN/TISSUE 03/07/2024 42940-KCJWPBU SKIN/TISSUE 06/09/2022 16953-HULDAJP SKIN/TISSUE 06/23/2022 60395-NGOJGEE SKIN/TISSUE 07/24/2022 63588-BQSFFMZ SKIN/TISSUE 10/27/2022 13513-XINPUTS SKIN/TISSUE 10/12/2020 04004 I&D ABSCESS- SIMPLE,SINGLE 022 68231 I&D ABSCESS- SIMPLE,SINGLE 025 16880 I&D ABSCESS- SIMPLE,SINGLE 024 29661 I&D ABSCESS- SIMPLE,SINGLE 023 31408-MTKA SKIN LESIONS, OVER 4 12/23/19 23 14452-PFPE SKIN LESIONS, OVER 4 03/04/20 23 68695-OUZF SKIN LESIONS, OVER 4 05/13/19 24 93356-IBXG SKIN LESIONS, OVER 4 12/02/19 24 94083-CUPU SKIN LESIONS, OVER 4 09/23/19 24 96822-DHQH SKIN LESIONS, OVER 4 03/07/20 24 19688-IYPB SKIN LESIONS, OVER 4 06/14/19 25 32868-HXCE SKIN LESIONS, OVER 4 11/14/19 22 43637-ZUHX SKIN LESIONS, OVER 4 09/03/19 22 49121-PGCL SKIN LESIONS, OVER 4 04/01/19 22 15452-LOFP SKIN LESIONS, OVER 4 06/04/19 22 42001-YWAD SKIN LESIONS, OVER 4 10/13/19 21 26893-KECR SKIN LESIONS, OVER 4 01/15/20 21 26262-SJBO SKIN LESIONS, OVER 4 10/28/19 23 31579-IAIL SKIN LESIONS, OVER 4 08/21/19 23 78300-TJGA SKIN LESIONS, OVER 4 06/10/19 23 45068-HVJY SKIN LESIONS, OVER 4 01/23/20 22 61444-ELQR SKIN LESIONS, OVER 4 04/02/19 23 41130-Hnuwwoszm, Toes 12/11/2020 Next Appt Details Provider Name:David Art , 10/19/2024 11:30:00 AM, [address] [facility], [address], [place], [address], Insurance Providers Payer Name Payer Address Payer Phone Subscriber Number Group Number Insured Name Patient Relationship to Insured Coverage Start Date Coverage End Date Medicare National [facility] [address] [place] [address] [id number] Dorie Treadwell Self - patient is the insured [employer] [address] [place] [address] [id number] Dorie Treadwell Self - patient is the [...]
--- OUTSIDE RECORDS SUMMARY | 2024-10-17 08:18 | XMS_ITS | Encounter Summary ---
Author Organization [facility] Address [address] [facility] [address] [place] [address] Phone Care Team Providers Care Game Breeding Farm Manager Name Role Phone Taylor Contreras MD Primary Care Provider [phone] Encounter Details Date Type Department Care Team (Late Contact Info) Description 06/06/2021 Telephone [facility] [address] [facility] [address] [place] [address] Gary Brennan MD [address] [place] [address] Social History Tobacco Use Types Packs/Day Years [...] for guidance. Please call her back at [phone] Thank you documented in this encounter Plan of Treatment Upcoming Encounters Date Type Department Care Team (Late st Contact Info) Description 02/27/2025 1:00 PM EST Office Visit [facility] [address] [facility] [address] [place] [address] Regine Young ARNP [address] [facility] [address] [place] [address] documented as of this encounter Visit Diagnoses Not on filedocumented in this encounter Care Teams Game Breeding Farm Manager Relationship Specialty Start Date End Date Taylor Contreras MD [address] [place], [place] PCP - General 03/19/20 documented as of this encounter
== END 2024-10-14 08:08 | disposition home or self-care (01) ==
LOC: HO.HOSX 08:07
PROVIDERS: Visit Provider Physician Assistant
DX: M25.571 Pain in right ankle and joints of right foot (principal); Z98.890 Other specified postprocedural states; Z87.81 Personal history of (healed) traumatic fracture
CPT/HCPCS: 73610; 99212

== ENCOUNTER 2024-10-14 14:14 | Outpatient (AMB) | payer MEDICARE, SELFPAY ==
--- OUTSIDE RECORDS SUMMARY | 2024-10-14 14:16 | XMS_ITS | Encounter Summary ---
Author Organization [facility] Address [address] [place] [address] Care Team Providers Care Metal Template Maker Name Role Phone Taylor Contreras MD Primary Care Provider [phone] Encounter Details Date Type Department Care Team (Late st Contact Info) Description 08/13/2024 Lab Requisition [facility] - Main Lab [address] [facility] [place] [address] Elizabeth Parker MD [address] [place] [address] Encounter for other general examination Social History [...] CBC auto differential (08/13/2024 6:45 AM EDT) [facility] WBC 8.1 4.8 - 10.8 K/mcL LAB [...] LAB HEMETOLOGY METHOD 08/13/2024 10:53 AM EDT [facility] Blood Venous blood specimen / Unknown Venipuncture / Unknown 08/13/2024 6:45 AM EDT 08/13/2024 9:49 AM EDT us Elizabeth Parker MD LAB BLOOD ORDERABLES Final Resu lt Performing Organization Address [facility]/ZIP Co de Phone Number [facility] [address] [place] [address], [place] [phone] * (ABNORMAL) Magnesium (08/13/2024 6:45 AM EDT) Pathologist [facility] Magnesium 1.8(L) 1.9 - 2.6 mg/dL LAB CHEMISTRY METHOD 08/13/2024 11:24 AM EDT [facility] Blood Venous blood specimen / Unknown Venipuncture / Unknown 08/13/2024 6:45 AM EDT 08/13/2024 9:49 AM EDT us Elizabeth Parker MD LAB BLOOD ORDERABLES Final Resu lt Performing Organization Address [facility] de Phone Number [facility] [address] [place] [address], [place] [phone] * (ABNORMAL) Comprehensive metabolic panel (08/13/2024 6:45 AM EDT) Pathologist [facility] Sodium 143 133 - 145 mmol/L LAB CHEMISTRY METHOD 08/13/2024 11:24 AM EDT [facility] Potassium 4.3 3.5 - 5.5 mmol/L LAB CHEMISTRY METHOD 08/13/2024 11:24 AM EDT [facility] Chloride 106 96 - 110 mmol/L LAB CHEMISTRY METHOD 08/13/2024 11:24 AM EDT [facility] CO2 30 21 - 32 mmol/L LAB CHEMISTRY METHOD 08/13/2024 11:24 AM EDT [facility] Anion Gap 7 3 [...] LAB CHEMISTRY METHOD 08/13/2024 11:24 AM EDT [facility] Blood Venous blood specimen / Unknown Venipuncture / Unknown 08/13/2024 6:45 AM EDT 08/13/2024 9:49 AM EDT us Elizabeth Parker MD LAB BLOOD ORDERABLES Final Resu lt [facility] [address] [place] [address], documented in this encounter Visit Diagnoses Diagnosis Encounter for other general examination documented in this encounter Care Teams Metal Template Maker Relationship Specialty Start Date End Date Taylor Contreras MD [address] [place] [address] PCP - General Internal Medicine 02/18/11 documented as of this encounter
--- OUTSIDE RECORDS SUMMARY | 2024-10-14 14:16 | XMS_ITS | Encounter Summary ---
Author Organization [facility] Address [address] [facility] [address] [place] [address] Phone Care Team Providers Care Artificial Log Machine Operator Name Role Phone Taylor Contreras MD Primary Care Provider [phone] Encounter Details Date Type Department Care Team (Late Contact Info) Description 06/06/2021 Telephone [facility] [address] [facility] [address] [place] [address] Gary Brennan MD [address] [place] [address] Social History Tobacco Use Types Packs/Day Years [...] for guidance. Please call her back at [phone] Thank you documented in this encounter Plan of Treatment Upcoming Encounters Date Type Department Care Team (Late st Contact Info) Description 02/27/2025 1:00 PM EST Office Visit [facility] [address] [facility] [address] [place] [address] Regine Young ARNP [address] [facility] [address] [place] [address] documented as of this encounter Visit Diagnoses Not on filedocumented in this encounter Care Teams Artificial Log Machine Operator Relationship Specialty Start Date End Date Taylor Contreras MD [address] [place], [place] PCP - General 03/19/20 documented as of this encounter
--- OUTSIDE RECORDS SUMMARY | 2024-10-14 14:16 | XMS_ITS | Clinical Summary ---
Author Organization [facility] Address [address] [place] [address] Care Team Providers Care Banquet Supervisor Name Role Phone Taylor Contreras MD Primary Care Provider [phone] Josselyn Rice RN Unavailable [phone] Allergies Active Allergy Reactions Criticality Noted [...] patient's age to complete this topic Insurance [facility] [place] [id number] MEDICARE PART A & B [facility] PPO Advance Directives * Full Code (Latest Code Status on File) Date Activated Date Inactivated Comments 11/05/2015 5:07 PM 11/11/2015 9:17 PM * Full Code Date Activated Date Inactivated Comments 11/05/2015 6:11 AM 11/05/2015 5:07 PM Care Teams Banquet Supervisor Relationship Specialty Start Date End Date Taylor Contreras MD [address] [facility] [address] [place] [address] PCP - General Internal Medicine 10/05/15 Josselyn Rice RN [address] [place] [address] Oncology Nurse Navigator 11/07/15
--- OUTSIDE RECORDS SUMMARY | 2024-10-14 14:16 | XMS_ITS | Patient Health Record ---
Author Organization [facility] Address [address] [place] [address] Care Team Providers Care Getterer Name Role Phone Taylor Contreras MD Primary Care Provider Unavailab David Cano Unavailable [phone] Allergies Allergen (clinical drug ingredient) Drug/Non Drug [...] Problem Acquired hammer toe of right foot (782892787692737 5) Other hammer toe(s) (acquired), right foot (M20.41) Active confirmed Response to treatment,Impr ovement Problem Acquired hammer toe of left foot (817422889320176 3) Other hammer toe(s) (acquired), left foot (M20.42) Active confirmed Response to treatment,Impr ovement Problem Polyneuropathy due to type 2 diabetes mellitus (937974685) Type 2 diabetes mellitus with diabetic polyneuropathy [...] Ordered Date Performed Result Body Sit e 28445-RBMKKLC NAIL, 6 OR MORE 12/02/2023 N/A 94195-AXFN SKIN LESIONS, OVER 4 12/02/2023 N/A 86592-MDOHNOF NAIL, 6 OR MORE 03/07/2024 N/A 02662-EUXPRDD SKIN/TISSUE 03/07/2024 N/A 75939 I&D ABSCESS- SIMPLE,SINGLE 03/07/2024 N/A 05174-RIZN SKIN LESIONS, OVER 4 03/07/2024 N/A 10060-INHNZLF NAIL, 6 OR MORE 06/13/2024 N/A 89738 I&D ABSCESS- SIMPLE,SINGLE 06/13/2024 N/A 30492-GGYV SKIN LESIONS, OVER 4 06/13/2024 N/A Encounters Encounter Location Date Provider Diagnosis [facility] [address] [place] [address] 12/02/2023 Davidreynold Art Type 2 diabetes mellitus with diabetic polyneuropathy E11.42 ; Tinea unguium B35.1 and Xerosis of skin L85.3 [facility] [address] [place] [address] 03/07/2024 Davidreynold Art Type 2 diabetes mellitus with diabetic polyneuropathy E11.42 ; Tinea unguium B35.1 ; Xerosis of skin L85.3 ; Other hammer toe(s) (acquired), right foot M20.41 ; Other hammer toe(s) (acquired), left foot M20.42 ; Abscess of toe, left L02.612 and 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.[address] [address] 06/13/2024 David Art Type 2 diabetes mellitus with diabetic polyneuropathy E11.42 ; Tinea unguium B35.1 ; Abscess of toe, left L02.612 and 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.[address] [facility] [address] 10/29/2023 David Art [facility] [address] 03/07/2024 [facility]reynold Art [facility] [address] [address] 03/14/2024 David Rubens [facility] [address] [address] 09/05/2024 David Art Assessments Encounter Date Diagnosis [...] Treatment Pending Test Test Name Order Date 02640-PQOGDXA NAIL, 6 OR MORE 10/12/2020 28060-XZZPLDG NAIL, 6 OR MORE 01/14/2021 10788-WQLANIZ NAIL, 6 OR MORE 04/01/2021 61152-IUHSVNZ NAIL, 6 OR MORE 06/03/2021 10512-EZPBAPZ NAIL, 6 OR MORE 09/02/2021 91865-NZRFVMT NAIL, 6 OR MORE 11/13/2021 54479-SNJXYGK NAIL, 6 OR MORE 01/22/2022 00511-KRSEJHL NAIL, 6 OR MORE 04/02/2022 45520-QBCBOQF NAIL, 6 OR MORE 06/09/2022 60311-JWGVLNU NAIL, 6 OR MORE 08/20/2022 05628-JFYFETV NAIL, 6 OR MORE 10/27/2022 35165-ABOBDJV NAIL, 6 OR MORE 12/22/2022 61468-OMIENHX NAIL, 6 OR MORE 03/04/2023 33132-KIECFZA NAIL, 6 OR MORE 05/13/2023 63050-MECQPVH NAIL, 6 OR MORE 09/23/2023 47149-FORJRHA NAIL, 6 OR MORE 12/02/2023 75477-RWFYDLF NAIL, 6 OR MORE 03/07/2024 01466-WNUCVZV NAIL, 6 OR MORE 06/13/2024 07632-Mxrfybsc Plate 09/23/2023 13687-Jpkyyfol Plate 08/20/2022 77089-Hifqfdhj Plate 10/27/2022 05136-Jntnnlnj Plate 01/14/2021 02332-Aqfpobms Plate 10/12/2020 93059-Pmdxvxsh Plate Each Additional 10/2020 85429- Debride <25 sq cm 04/01/2021 24733- Debride <25 sq cm 09/02/2021 67374- Debride <25 sq cm 08/20/2022 40669- Debride <25 sq cm 01/22/2022 81502- Debride <25 sq cm 01/21/2023 51208- Debride <25 sq cm 03/04/2023 74751-VVMUPYW SKIN/TISSUE 01/21/2023 37618-JMJQUKD SKIN/TISSUE 12/22/2022 23258-JOYBGJX SKIN/TISSUE 11/24/2022 45686-DCJUION SKIN/TISSUE 03/07/2024 31431-WIZEMOC SKIN/TISSUE 06/09/2022 28487-TXGETJD SKIN/TISSUE 06/23/2022 22836-SGEHVYI SKIN/TISSUE 07/24/2022 43787-ZVZOFUO SKIN/TISSUE 10/27/2022 78661-HJJGZZY SKIN/TISSUE 10/12/2020 60162 I&D ABSCESS- SIMPLE,SINGLE 022 42062 I&D ABSCESS- SIMPLE,SINGLE 025 79125 I&D ABSCESS- SIMPLE,SINGLE 024 01424 I&D ABSCESS- SIMPLE,SINGLE 023 60894-MYYY SKIN LESIONS, OVER 4 12/23/19 23 70228-ZPEK SKIN LESIONS, OVER 4 03/04/20 23 73022-KQRS SKIN LESIONS, OVER 4 05/13/19 24 48879-CUYB SKIN LESIONS, OVER 4 12/02/19 24 99998-XZCO SKIN LESIONS, OVER 4 09/23/19 24 66194-WIEH SKIN LESIONS, OVER 4 03/07/20 24 75760-INOS SKIN LESIONS, OVER 4 06/14/19 25 46239-MTPN SKIN LESIONS, OVER 4 11/14/19 22 98940-WHRT SKIN LESIONS, OVER 4 09/03/19 22 26235-FWWV SKIN LESIONS, OVER 4 04/01/19 22 44697-VIBN SKIN LESIONS, OVER 4 06/04/19 22 81615-BFKW SKIN LESIONS, OVER 4 10/13/19 21 49900-CKRC SKIN LESIONS, OVER 4 01/15/20 21 46476-EJXV SKIN LESIONS, OVER 4 10/28/19 23 03344-OCDR SKIN LESIONS, OVER 4 08/21/19 23 25650-ICZQ SKIN LESIONS, OVER 4 06/10/19 23 07985-GZLQ SKIN LESIONS, OVER 4 01/23/20 22 67224-FDHE SKIN LESIONS, OVER 4 04/02/19 23 07484-Qexfnhbwp, Toes 12/11/2020 Next Appt Details Provider Name:David Art , 10/19/2024 11:30:00 AM, [address] [facility], [address], [place], [address], Insurance Providers Payer Name Payer Address Payer Phone Subscriber Number Group Number Insured Name Patient Relationship to Insured Coverage Start Date Coverage End Date Medicare National [employer] [address] [place] [address] [id number] Dorie Treadwell Self - patient is the insured [employer] [address] [place] [address] [phone] [id number] Dorie Treadwell Self - patient is the [...]
--- NOTE | 2024-10-14 14:27 | A.OFFVIS_ITS ---
Intake Visit Reasons: PO - Right Ankle ORIF 08/10/24 NE (wound check) Intake Note: Dorie is a 73 year old female who presents today for a post operative wound check s/p right ankle ORIF, DOS: 08/10/[address] Clifford. Patient reports she is seeing healing in her wound but still having mild pain in her ankle. Allergies amoxicillin Allergy (Verified 10/14/24 14:30) Rash Iodinated Contrast Media (Contrast Dye) Allergy (Verified 10/14/24 14:30) Rash, [place] like Blood Boiling nickel Allergy (Verified 10/14/24 14:30) Rash rubber, unspecified Allergy (Verified 10/14/24 14:30) + Rxn from allergy testing Sulfa (Sulfonamide Antibiotics) Allergy (Verified 10/14/24 14:30) Swelling HPI HPI PO - Right Ankle ORIF 08/10/24 NE (wound check): Details: Ms. Treadwell is a 73-year-old female who presents to the office today for a wound check status post right ankle ORIF performed on 08/10/[address] Clifford. Patient has discontinued the tall walking boot and has been using a supportive shoe. She notes some increasing soreness about the ankle and dorsal aspect of the foot. The medial wound is looking much better with scabbing over the top. No increasing redness, drainage or warmth. [facility] Medical History Fatty liver History of chemotherapy Arthritis of spine Back pain Hx of diarrhea Diabetes History of headache TAMARA (obstructive sleep apnea) Elevated cholesterol HTN (hypertension) Surgical History Hx of varicose vein ligation and stripping History of lumpectomy of right breast History of lumpectomy of left breast History of kidney surgery History of nephrectomy, left Social History Are you a primary patient care secretary to a significant other at home: No Do you presently have visiting nurse or other home services: No Comment: COUNTS CORRECT Patient Tobacco Use Status: Former Tobacco user Tobacco use type: Cigarette Second Hand Smoke Exposure: No service: No Review of Systems Const All systems reviewed & are unremarkable except as noted in HPI and below Physical Exam Extrem Other: Right ankle medial malleolus has a roughly quarter-size area of skin breakdown which is now covered by healthy eschar tissue.. Patient is able to demonstrate dorsiflexion, plantar flexion, pronation and supination with discomfort. NVI. Assessment & Plan Assessment & Plan (1) Status post ORIF of fracture of ankle: Code(s): Z98.890 - Other specified postprocedural states; Z87.81 - Personal history of (healed) traumatic fracture Category: Surgical Plan Ms. Treadwell is a 73-year-old female who presents to the office today for a wound check status post right ankle ORIF performed on 08/10/[address] Clifford. Patient has discontinued the tall walking boot and has been using a supportive shoe. She notes some increasing soreness about the ankle and dorsal aspect of the foot. The medial wound is looking much better with scabbing over the top. No increasing redness, drainage or warmth. While in the office today, the patient states that she is having some increase in pain but I feel that this is likely attributed to the drastic discontinuation of boot due to the medial sided ankle wound. Patient states that there has been no increasing signs of infection such as redness swelling drainage or warmth over the medial wound. She has developed healthy eschar tissue over the area. I instructed that she should keep this area clean dry and intact and do not remove the scab. She will continue and a supportive walking shoe. She is working with physical therapy and will continue to do so. She will continue to weightbear as tolerated. She was educated on signs of infection, which are as follows but not limited to erythema, edema, drainage, or warmth. If he/she is to experience any of these symptoms, she must contact the office immediately or present to the ED for evaluation. Patient understands and accepts. Follow up in 2 weeks, sooner if needed. X-rays of the right ankle which were obtained while in the office today and were reviewed by me, Brittany Tilley PA-C, revealed intact orthopedic hardware with routine healing. Orders: Orders XR ankle RT min 3V Today M25.579 - Pain in unspecified ankle and joints of unspecified foot Coding Level of Care Code Global (34787) Diagnoses Status post ORIF of fracture of ankle Z98.890; Z87.81
== END 2024-10-14 14:59 | disposition home or self-care (01) ==
LOC: HO.HOS 14:14
PROVIDERS: Visit Provider Physician Assistant
DX: Z98.890 Other specified postprocedural states (principal); Z87.81 Personal history of (healed) traumatic fracture
CPT/HCPCS: 99024

== ENCOUNTER → 2024-10-14 14:19 | Outpatient (BNV) | payer MEDICARE, SELFPAY | PROVIDERS: Visit Provider Radiology Diagnostic Radiology | DX: R22.41 Localized swelling, mass and lump, right lower limb (principal) | CPT/HCPCS: 73610 ==

== ENCOUNTER 2024-10-27 13:19 | Outpatient (AMB) | payer MEDICARE, SELFPAY ==
--- OUTSIDE RECORDS SUMMARY | 2024-10-27 13:31 | XMS_ITS | Encounter Summary ---
Author Organization [facility] Address [address] [place] [address] Care Team Providers Care Clinical Staff Pharmacist Name Role Phone Taylor Contreras MD Primary Care Provider [phone] Encounter Details Date Type Department Care Team (Late st Contact Info) Description 08/13/2024 Lab Requisition [facility] - Main Lab [address] [facility] [place] [address] Elizabeth Parker MD [address] [place] [address] Encounter for other general examination Social History [...] CBC auto differential (08/13/2024 6:45 AM EDT) [facility] WBC 8.1 4.8 - 10.8 K/mcL LAB HEMETOLOGY METHOD 08/13/2024 10:53 AM [facility] RBC 3.30(L) 3.80 - 4.80 M/mcL LAB HEMETOLOGY METHOD 08/13/2024 10:53 AM [facility] Hemoglobin 9.2(L) 11.5 - 16.0 g/dL LAB HEMETOLOGY METHOD 08/13/2024 10:53 AM [facility] Hematocrit 30.7(L) 35.0 - 47.0 % LAB HEMETOLOGY METHOD 08/13/2024 10:53 AM [facility] MCV 94.2 79.0 - 98.0 FL LAB HEMETOLOGY METHOD 08/13/2024 10:53 AM [facility] MCH 28.2 27.0 - 32.0 pcg LAB HEMETOLOGY METHOD 08/13/2024 10:53 AM [facility] MCHC 30.0(L) 32.0 - 37.0 g/dL LAB HEMETOLOGY METHOD 08/13/2024 10:53 AM [facility] RDW 14.6 11.0 - 15.0 % LAB HEMETOLOGY METHOD 08/13/2024 10:53 AM [facility] Platelets 339 130 - 400 K/mcL LAB HEMETOLOGY METHOD 08/13/2024 10:53 AM [facility] MPV 9.8 7.0 - 11.0 FL LAB HEMETOLOGY METHOD 08/13/2024 10:53 AM [facility] NRBC 0.2 <1.0 % LAB HEMETOLOGY METHOD 08/13/2024 10:53 AM [facility] NRBC Absolute 0.02 <0.10 K/mcL LAB HEMETOLOGY METHOD 08/13/2024 10:53 AM [facility] Neutrophils Relative 50.6 % LAB HEMETOLOGY METHOD 08/13/2024 10:53 AM [facility] Lymphocytes Relative 36.0 % LAB HEMETOLOGY METHOD 08/13/2024 10:53 AM [facility] Monocytes Relative 9.4 % LAB HEMETOLOGY METHOD 08/13/2024 10:53 AM [facility] Eosinophils Relative 2.0 % LAB HEMETOLOGY METHOD 08/13/2024 10:53 AM [facility] Basophils Relative 0.6 % LAB HEMETOLOGY METHOD 08/13/2024 10:53 AM [facility] Immature Granulocytes Relative 1.4 % LAB HEMETOLOGY METHOD 08/13/2024 10:53 AM [facility] Neutrophils Absolute 4.12 1.50 - 7.00 K/mcL LAB HEMETOLOGY METHOD 08/13/2024 10:53 AM [facility] Lymphocytes Absolute 2.92 1.00 - 5.00 K/mcL LAB HEMETOLOGY METHOD 08/13/2024 10:53 AM [facility] Monocytes Absolute 0.76 0.20 - 1.00 K/mcL LAB HEMETOLOGY METHOD 08/13/2024 10:53 AM [facility] Eosinophils Absolute 0.16 0.00 - 0.50 K/mcL LAB HEMETOLOGY METHOD 08/13/2024 10:53 AM [facility] Basophils Absolute 0.05 0.00 - 0.20 K/mcL LAB HEMETOLOGY METHOD 08/13/2024 10:53 AM [facility] Immature Granulocytes Absolute 0.11(H) 0.00 - 0.03 K/mcL LAB HEMETOLOGY METHOD 08/13/2024 10:53 AM EDT [facility] Blood Venous blood specimen / Unknown Venipuncture / Unknown 08/13/2024 6:45 AM EDT 08/13/2024 9:49 AM EDT us Elizabeth Parker MD LAB BLOOD ORDERABLES Final Resu lt Performing Organization Address [facility]/ZIP Co de Phone Number [facility] [address] [place] [address], [place] [phone] * (ABNORMAL) Magnesium (08/13/2024 6:45 AM EDT) Pathologist [facility] Magnesium 1.8(L) 1.9 - 2.6 mg/dL LAB CHEMISTRY METHOD 08/13/2024 11:24 AM EDT [facility] Blood Venous blood specimen / Unknown Venipuncture / Unknown 08/13/2024 6:45 AM EDT 08/13/2024 9:49 AM EDT us Elizabeth Parker MD LAB BLOOD ORDERABLES Final Resu lt Performing Organization Address [facility] de Phone Number [facility] [address] [place] [address], [place] [phone] * (ABNORMAL) Comprehensive metabolic panel (08/13/2024 6:45 AM EDT) Pathologist [facility] Sodium 143 133 - 145 mmol/L LAB CHEMISTRY METHOD 08/13/2024 11:24 AM EDT [facility] Potassium 4.3 3.5 - 5.5 mmol/L LAB CHEMISTRY METHOD 08/13/2024 11:24 AM EDT [facility] Chloride 106 96 - 110 mmol/L LAB CHEMISTRY METHOD 08/13/2024 11:24 AM EDT [facility] CO2 30 21 - 32 mmol/L LAB CHEMISTRY METHOD 08/13/2024 11:24 AM EDT [facility] Anion Gap 7 3 - 11 LAB CHEMISTRY METHOD 08/13/2024 11:24 AM [facility] Glucose 83 70 - 100 mg/dL LAB CHEMISTRY METHOD 08/13/2024 11:24 AM [facility] BUN 23 5 - 25 mg/dL LAB CHEMISTRY METHOD 08/13/2024 11:24 AM [facility] Creatinine 1.05 0.50 - 1.10 mg/dL LAB CHEMISTRY METHOD 08/13/2024 11:24 AM [facility] eGFR 56(L) >=60 mL/min/1. 73m2 LAB CHEMISTRY METHOD 08/13/2024 11:24 AM [facility] Comment:Calculation based on the Chronic Kidney Disease Epidemiology Collaboration (CKD-EPI) equation refit without adjustment for race. BUN/Creatinine Ratio 21.9 LAB CHEMISTRY METHOD 08/13/2024 11:24 AM [facility] Calcium 8.9 8.5 - 10.5 mg/dL LAB CHEMISTRY METHOD 08/13/2024 11:24 AM [facility] AST (SGOT) 35 10 - 42 unit/L LAB CHEMISTRY METHOD 08/13/2024 11:24 AM [facility] ALT (SGPT) 26 10 - 60 unit/L LAB CHEMISTRY METHOD 08/13/2024 11:24 AM [facility] Alkaline Phosphatase 120 42 - 121 unit/L LAB CHEMISTRY METHOD 08/13/2024 11:24 AM [facility] Total Protein 6.4 6.0 - 8.0 g/dL LAB CHEMISTRY METHOD 08/13/2024 11:24 AM [facility] Albumin 2.9(L) 3.2 - 5.0 g/dL LAB CHEMISTRY METHOD 08/13/2024 11:24 AM [facility] Total Bilirubin 0.3 0.0 - 1.4 mg/dL LAB CHEMISTRY METHOD 08/13/2024 11:24 AM EDT [facility] Blood Venous blood specimen / Unknown Venipuncture / Unknown 08/13/2024 6:45 AM EDT 08/13/2024 9:49 AM EDT us Elizabeth Parker MD LAB BLOOD ORDERABLES Final Resu lt [facility] [address] [place] [address], documented in this encounter Visit Diagnoses Diagnosis Encounter for other general examination documented in this encounter Care Teams Clinical Staff Pharmacist Relationship Specialty Start Date End Date Taylor Contreras MD [address] [place] [address] PCP - General Internal Medicine 02/18/11 documented as of this encounter
--- OUTSIDE RECORDS SUMMARY | 2024-10-27 13:31 | XMS_ITS | Patient Health Record ---
Author Organization [facility] Address [address] [place] [address] Care Team Providers Care Health Promotion Coordinator Name Role Phone Taylor Contreras MD Primary Care Provider Unavailab David Cano Unavailable [phone] Allergies Allergen (clinical drug ingredient) Drug/Non Drug [...] Problem Acquired hammer toe of right foot (968469255158705 5) Other hammer toe(s) (acquired), right foot (M20.41) Active confirmed Response to treatment,Impr ovement Problem Acquired hammer toe of left foot (871930726901328 3) Other hammer toe(s) (acquired), left foot (M20.42) Active confirmed Response to treatment,Impr ovement Problem Polyneuropathy due to type 2 diabetes mellitus (742912569) Type 2 diabetes mellitus with diabetic polyneuropathy [...] Ordered Date Performed Result Body Sit e 68854-HNDWQWP NAIL, 6 OR MORE 12/02/2023 N/A 44275-EJSB SKIN LESIONS, OVER 4 12/02/2023 N/A 61282-TLMMALT NAIL, 6 OR MORE 03/07/2024 N/A 51121-RAECSHF SKIN/TISSUE 03/07/2024 N/A 00451 I&D ABSCESS- SIMPLE,SINGLE 03/07/2024 N/A 56376-GYUO SKIN LESIONS, OVER 4 03/07/2024 N/A 67897-ABPKSUN NAIL, 6 OR MORE 06/13/2024 N/A 99271 I&D ABSCESS- SIMPLE,SINGLE 06/13/2024 N/A 34026-OKCC SKIN LESIONS, OVER 4 06/13/2024 N/A Encounters Encounter Location Date Provider Diagnosis [facility] [address] [place] [address] 12/02/2023 Davidreynold Art Type 2 diabetes mellitus with diabetic polyneuropathy E11.42 ; Tinea unguium B35.1 and Xerosis of skin L85.3 [facility] [address] [place] [address] 03/07/2024 Davidreynold Art Type 2 diabetes mellitus with diabetic polyneuropathy E11.42 ; Tinea unguium B35.1 ; Xerosis of skin L85.3 ; Other hammer toe(s) (acquired), right foot M20.41 ; Other hammer toe(s) (acquired), left foot M20.42 ; Abscess of toe, left L02.612 and 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.[address] [address] 06/13/2024 David Art Type 2 diabetes mellitus with diabetic polyneuropathy E11.42 ; Tinea unguium B35.1 ; Abscess of toe, left L02.612 and 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.[address] [facility] [address] 10/29/2023 David Art [facility] [address] 03/07/2024 Davidreynold Art [facility] [address] [address] 03/14/2024 David Rubens [facility] [address] [address] 09/05/2024 David Art Assessments Encounter Date Diagnosis [...] Treatment Pending Test Test Name Order Date 98333-HSACTHK NAIL, 6 OR MORE 10/12/2020 24884-QCPRJST NAIL, 6 OR MORE 01/14/2021 54956-BBFRZYJ NAIL, 6 OR MORE 04/01/2021 93217-QDVEBUF NAIL, 6 OR MORE 06/03/2021 58775-PFWLOSS NAIL, 6 OR MORE 09/02/2021 13665-RUHPZKJ NAIL, 6 OR MORE 11/13/2021 33876-DXUVZDY NAIL, 6 OR MORE 01/22/2022 16825-EENDMWK NAIL, 6 OR MORE 04/02/2022 85864-AOGJTLN NAIL, 6 OR MORE 06/09/2022 75664-XMVRDCW NAIL, 6 OR MORE 08/20/2022 67103-QQEUVXA NAIL, 6 OR MORE 10/27/2022 37962-RHWQZYD NAIL, 6 OR MORE 12/22/2022 17535-UHNISBC NAIL, 6 OR MORE 03/04/2023 06374-BSHMAOA NAIL, 6 OR MORE 05/13/2023 28083-JLMYMZW NAIL, 6 OR MORE 09/23/2023 14384-GLSFYOW NAIL, 6 OR MORE 12/02/2023 14628-JJSOOTJ NAIL, 6 OR MORE 03/07/2024 31632-XNCTLRJ NAIL, 6 OR MORE 06/13/2024 09750-Dpaylqft Plate 09/23/2023 45383-Srsqeyis Plate 08/20/2022 89491-Pztdwioh Plate 10/27/2022 13110-Yyhgvrkr Plate 01/14/2021 91229-Iffvrirp Plate 10/12/2020 70942-Txxeqzve Plate Each Additional 10/2020 51948- Debride <25 sq cm 04/01/2021 65583- Debride <25 sq cm 09/02/2021 10779- Debride <25 sq cm 08/20/2022 61413- Debride <25 sq cm 01/22/2022 10845- Debride <25 sq cm 01/21/2023 31264- Debride <25 sq cm 03/04/2023 93924-CBGVNZJ SKIN/TISSUE 01/21/2023 96830-NOSZIVY SKIN/TISSUE 12/22/2022 88794-YVAEFHD SKIN/TISSUE 11/24/2022 65711-XRQUEOI SKIN/TISSUE 03/07/2024 41817-XOSLFUY SKIN/TISSUE 06/09/2022 76002-LAKQUTY SKIN/TISSUE 06/23/2022 12921-HANLDZI SKIN/TISSUE 07/24/2022 09961-IKELIRA SKIN/TISSUE 10/27/2022 87419-CZRCPKL SKIN/TISSUE 10/12/2020 01940 I&D ABSCESS- SIMPLE,SINGLE 022 16507 I&D ABSCESS- SIMPLE,SINGLE 025 66844 I&D ABSCESS- SIMPLE,SINGLE 024 57689 I&D ABSCESS- SIMPLE,SINGLE 023 37866-LHQT SKIN LESIONS, OVER 4 12/23/19 23 59276-CPIG SKIN LESIONS, OVER 4 03/04/20 23 67392-RCOT SKIN LESIONS, OVER 4 05/13/19 24 64789-OFJI SKIN LESIONS, OVER 4 12/02/19 24 06138-LSYZ SKIN LESIONS, OVER 4 09/23/19 24 83778-VRAI SKIN LESIONS, OVER 4 03/07/20 24 64289-HHMD SKIN LESIONS, OVER 4 06/14/19 25 60121-ANAU SKIN LESIONS, OVER 4 11/14/19 22 88743-YQHU SKIN LESIONS, OVER 4 09/03/19 22 59115-KQLQ SKIN LESIONS, OVER 4 04/01/19 22 22574-PRCI SKIN LESIONS, OVER 4 06/04/19 22 95132-OMYJ SKIN LESIONS, OVER 4 10/13/19 21 82880-MLIA SKIN LESIONS, OVER 4 01/15/20 21 24725-IVUS SKIN LESIONS, OVER 4 10/28/19 23 85075-JTUV SKIN LESIONS, OVER 4 08/21/19 23 13891-JHJU SKIN LESIONS, OVER 4 06/10/19 23 64109-IRAA SKIN LESIONS, OVER 4 01/23/20 22 79905-FZEG SKIN LESIONS, OVER 4 04/02/19 23 47557-Nwckoaqcw, Toes 12/11/2020 Next Appt Details Provider Name:David Art , 10/31/2024 10:45:00 AM, [address] [facility], [address], [place], [address], Insurance Providers Payer Name Payer Address Payer Phone Subscriber Number Group Number Insured Name Patient Relationship to Insured Coverage Start Date Coverage End Date Medicare National Govt [employer] [address] [place] [address] [id number] Dorie Treadwell Self - patient is the insured [employer] [address] [place] [address] [id number] Dorie Treadwell Self - patient is the [...]
--- OUTSIDE RECORDS SUMMARY | 2024-10-27 13:31 | XMS_ITS | Clinical Summary ---
Author Organization [facility] Address [address] [place] [address] Care Team Providers Care Dynamite Shooter Name Role Phone Taylor Contreras MD Primary Care Provider Josselyn Rice RN Unavailable [phone] Allergies Active Allergy Reactions Criticality Noted [...] patient's age to complete this topic Insurance [facility] [place] [facility] [place] [id number] MEDICARE PART A & B [facility] PPO Advance Directives * Full Code (Latest Code Status on File) Date Activated Date Inactivated Comments 11/05/2015 5:07 PM 11/11/2015 9:17 PM * Full Code Date Activated Date Inactivated Comments 11/05/2015 6:11 AM 11/05/2015 5:07 PM Care Teams Dynamite Shooter Relationship Specialty Start Date End Date Taylor Contreras MD [address] [facility] [address] [place] [address] PCP - General Internal Medicine 10/05/15 Josselyn Rice RN [address] [place] [address] Oncology Nurse Navigator 11/07/15
--- OUTSIDE RECORDS SUMMARY | 2024-10-27 13:31 | XMS_ITS | Encounter Summary ---
Author Organization [facility] Address [address] [facility] [address] [place] [address] Phone Care Team Providers Care Diploma Maker Name Role Phone Taylor Contreras MD Primary Care Provider [phone] Encounter Details Date Type Department Care Team (Late Contact Info) Description 06/06/2021 Telephone [facility] [address] [facility] [address] [place] [address] Gary Brennan MD [address] [place] [phone] Social History Tobacco Use Types Packs/Day Years [...] for guidance. Please call her back at [phone] Thank you documented in this encounter Plan of Treatment Upcoming Encounters Date Type Department Care Team (Late st Contact Info) Description 02/27/2025 1:00 PM EST Office Visit [facility] [address] [facility] [address] [place] [address] Regine Young ARNP [address] [facility] [address] [place] [address] documented as of this encounter Visit Diagnoses Not on filedocumented in this encounter Care Teams Diploma Maker Relationship Specialty Start Date End Date Taylor Contreras MD [address] [place], [place] PCP - General 03/19/20 documented as of this encounter
--- NOTE | 2024-10-27 15:30 | MHC.OFFVIS ---
Intake Visit Reasons: PO - Rt Ankle ORIF 08/10/24 NE (wound check) Allergies amoxicillin Allergy (Verified 10/14/24 14:30) Rash Iodinated Contrast Media (Contrast Dye) Allergy (Verified 10/14/24 14:30) Rash, [place] like Blood Boiling nickel Allergy (Verified 10/14/24 14:30) Rash rubber, unspecified Allergy (Verified 10/14/24 14:30) + Rxn from allergy testing Sulfa (Sulfonamide Antibiotics) Allergy (Verified 10/14/24 14:30) Swelling HPI HPI PO - Rt Ankle ORIF 08/10/24 NE (wound check): Details: Ms. Treadwell is a 74-year-old female who presents to the office today status post right ankle ORIF performed on 08/10/[address] Clifford. She presents to the office for a wound check along the medial aspect of the ankle. At her last appointment on 10/14/2024 she was instructed to keep the area clean dry and intact. There was healthy eschar tissue over the area. [facility] Medical History Fatty liver History of chemotherapy Arthritis of spine Back pain Hx of diarrhea Diabetes History of headache TAMARA (obstructive sleep apnea) Elevated cholesterol HTN (hypertension) Surgical History Hx of varicose vein ligation and stripping History of lumpectomy of right breast History of lumpectomy of left breast History of kidney surgery History of nephrectomy, left Social History Are you a primary gericare aide to a significant other at home: No Do you presently have visiting nurse or other home services: No Comment: COUNTS CORRECT Patient Tobacco Use Status: Former Tobacco user Tobacco use type: Cigarette Second Hand Smoke Exposure: No service: No Review of Systems Const All systems reviewed & are unremarkable except as noted in HPI and below Physical Exam Extrem Other: Right ankle medial malleolus has a roughly pea-size area of healthy eschar tissue. No surrounding erythema or drainage. No signs of infection. Areas healing well. Patient is able to demonstrate dorsiflexion, plantar flexion, pronation and supination without discomfort - mild stiffness. NVI. Assessment & Plan Assessment & Plan (1) Bimalleolar fracture of right ankle: Code(s): S82.841A - Displaced bimalleolar fracture of right lower leg, initial encounter for closed fracture Category: Medical (2) Status post ORIF of fracture of ankle: Code(s): Z98.890 - Other specified postprocedural states; Z87.81 - Personal history of (healed) traumatic fracture Category: Surgical Plan Ms. Treadwell is a 74-year-old female who presents to the office today status post right ankle ORIF performed on 08/10/[address] Clifford. She presents to the office for a wound check along the medial aspect of the ankle. At her last appointment on 10/14/2024 she was instructed to keep the area clean dry and intact. There was healthy eschar tissue over the area. While in the office today, the area of skin breakdown has healed well and there are no signs of infection. At this point I would recommend that the patient let the scab remove on its own. She should continue to keep this area clean dry and intact. Continue wearing a supportive walking shoe. She will continue working with physical therapy. She will continue to weightbear as tolerated. Patient was educated again on the signs of infection which are as follows but not limited to erythema, edema, drainage, or warmth. If he/she is to experience any of these symptoms, she must contact the office immediately or present to the ED for evaluation. Patient understands and accepts. She will follow up in 4 weeks with repeat x-rays, sooner if needed. Coding Level of Care Code Global (62853) Diagnoses Bimalleolar fracture of right ankle S82.841A Status post ORIF of fracture of ankle Z98.890; Z87.81
== END 2024-10-27 13:24 | disposition home or self-care (01) ==
LOC: HO.HOS 13:19
PROVIDERS: Visit Provider Physician Assistant
DX: S82.841A Displaced bimalleolar fracture of right lower leg, initial encounter for closed fracture (principal); Z98.890 Other specified postprocedural states; Z87.81 Personal history of (healed) traumatic fracture
CPT/HCPCS: 99024

== ENCOUNTER → 2024-10-27 13:19 | Outpatient (BNVA) | payer MEDICARE, SELFPAY | PROVIDERS: Visit Provider Physician Assistant | DX: S82.841D Displaced bimalleolar fracture of right lower leg, subsequent encounter for closed fracture with routine healing (principal); Z98.890 Other specified postprocedural states; Z87.81 Personal history of (healed) traumatic fracture | CPT/HCPCS: 99212 ==

== ENCOUNTER 2024-11-24 08:38 | Outpatient (REF) | payer MEDICARE, SELFPAY ==
--- NOTE | ~2024-11-24 | XR_ITS ---
EXAMINATION: XR ANKLE, RIGHT CLINICAL INFORMATION: M25.579 - Pain in unspecified ankle and joints of unspecified foot COMPARISON: 10/14/2024, 09/22/2024, 08/23/2024. TECHNIQUE: AP, lateral, and mortise views of the right ankle. FINDINGS: Redemonstration of the lateral right and screw construct fixating lateral malleolus fracture. Hardware is intact and well seated without complication. Fracture lines are difficult to perceive. There are 2 compression screws in the medial malleolus transfixing a healing medial malleolar fracture. Fracture lines are also difficult to perceive. Periosteal new bone formation also seen on the lateral projection abutting the posterior malleolus. The mortise remains intact. The talar dome remains intact. Subtalar joints demonstrate mild arthritis. Calcaneus is intact. Skin tenzin laterally have been removed. Mild residual circumferential soft tissue swelling. XR/XR ankle RT min 3V IMPRESSION: Continued healing post ORIF of a bimalleolar fracture. No hardware complication. Electronically signed by: Raoul Aj MD 11/24/2024 03:25 PM EDT
--- OUTSIDE RECORDS SUMMARY | 2024-11-25 09:15 | XMS_ITS | Encounter Summary ---
Author Organization [facility] Address [address] [place] [address] Care Team Providers Care Chip Drier Name Role Phone Taylor Contreras MD Primary Care Provider [phone] Josselyn Rice RN Unavailable [phone] Encounter Details Date Type Department Care Team (Late st Contact Info) Description 04/29/2016 Scanned Document [address] [place] [phone] Provider, Generic Social History Tobacco Use Types [...] on filedocumented in this encounter Care Teams Chip Drier Relationship Specialty Start Date End Date Taylor Contreras MD [address] [facility] [address] [place] [address] PCP - General Internal Medicine 10/05/15 Josselyn Rice RN [address] [place] [phone] Oncology Nurse Navigator 11/07/15 documented as of this encounter
--- OUTSIDE RECORDS SUMMARY | 2024-11-25 09:15 | XMS_ITS | Encounter Summary ---
Author Organization [facility] Address [address] [place] [address] Care Team Providers Care Environmental Systems Coordinator Name Role Phone Taylor Contreras MD Primary Care Provider [phone] Josselyn Rice RN Unavailable [phone] Encounter Details Date Type Department Care Team (Late st Contact Info) Description 11/05/2015 Scanned Document [address] [place] [phone] Provider, Generic Social History Tobacco Use Types [...] on filedocumented in this encounter Care Teams Environmental Systems Coordinator Relationship Specialty Start Date End Date Taylor Contreras MD [address] [facility] [address] [place] [address] PCP - General Internal Medicine 10/05/15 Josselyn Rice RN [address] [place] [address] Oncology Nurse Navigator 11/07/15 documented as of this encounter
--- OUTSIDE RECORDS SUMMARY | 2024-11-25 09:15 | XMS_ITS | Encounter Summary ---
Author Organization [facility] Address [address] [place] [address] Care Team Providers Care Product Safety And Standards Engineer Name Role Phone Taylor Contreras MD Primary Care Provider [phone] Encounter Details Date Type Department Care Team (Late st Contact Info) Description 08/17/2024 Lab Requisition [facility] - Main Lab [address] [place] [address] Elizabeth Parker MD [address] [place] [address] Encounter for other general examination Social History [...] CBC auto differential (08/17/2024 5:21 AM EDT) [facility] WBC 7.9 4.8 - 10.8 K/mcL LAB HEMETOLOGY METHOD 08/17/2024 10:06 AM [facility] RBC 3.30(L) 3.80 - 4.80 M/mcL LAB HEMETOLOGY METHOD 08/17/2024 10:06 AM [facility] Hemoglobin 9.4(L) 11.5 - 16.0 g/dL LAB HEMETOLOGY METHOD 08/17/2024 10:06 AM [facility] Hematocrit 30.5(L) 35.0 - 47.0 % LAB HEMETOLOGY METHOD 08/17/2024 10:06 AM [facility] MCV 93.3 79.0 - 98.0 FL LAB HEMETOLOGY METHOD 08/17/2024 10:06 AM [facility] MCH 28.7 27.0 - 32.0 pcg LAB HEMETOLOGY METHOD 08/17/2024 10:06 AM [facility] MCHC 30.8(L) 32.0 - 37.0 g/dL LAB HEMETOLOGY METHOD 08/17/2024 10:06 AM [facility] RDW 15.0 11.0 - 15.0 % LAB HEMETOLOGY METHOD 08/17/2024 10:06 AM [facility] Platelets 322 130 - 400 K/mcL LAB HEMETOLOGY METHOD 08/17/2024 10:06 AM [facility] MPV 9.7 7.0 - 11.0 FL LAB HEMETOLOGY METHOD 08/17/2024 10:06 AM [facility] NRBC 0.0 <1.0 % LAB HEMETOLOGY METHOD 08/17/2024 10:06 AM [facility] NRBC Absolute 0.00 <0.10 K/mcL LAB HEMETOLOGY METHOD 08/17/2024 10:06 AM [facility] Neutrophils Relative 56.9 % LAB HEMETOLOGY METHOD 08/17/2024 10:06 AM [facility] Lymphocytes Relative 26.8 % LAB HEMETOLOGY METHOD 08/17/2024 10:06 AM [facility] Monocytes Relative 11.2 % LAB HEMETOLOGY METHOD 08/17/2024 10:06 AM [facility] Eosinophils Relative 3.7 % LAB HEMETOLOGY METHOD 08/17/2024 10:06 AM [facility] Basophils Relative 0.5 % LAB HEMETOLOGY METHOD 08/17/2024 10:06 AM [facility] Immature Granulocytes Relative 0.9 % LAB HEMETOLOGY METHOD 08/17/2024 10:06 AM [facility] Neutrophils Absolute 4.49 1.50 - 7.00 K/mcL LAB HEMETOLOGY METHOD 08/17/2024 10:06 AM [facility] Lymphocytes Absolute 2.11 1.00 - 5.00 K/mcL LAB HEMETOLOGY METHOD 08/17/2024 10:06 AM [facility] Monocytes Absolute 0.88 0.20 - 1.00 K/mcL LAB HEMETOLOGY METHOD 08/17/2024 10:06 AM [facility] Eosinophils Absolute 0.29 0.00 - 0.50 K/mcL LAB HEMETOLOGY METHOD 08/17/2024 10:06 AM [facility] Basophils Absolute 0.04 0.00 - 0.20 K/mcL LAB HEMETOLOGY METHOD 08/17/2024 10:06 AM [facility] Immature Granulocytes Absolute 0.07(H) 0.00 - 0.03 K/mcL LAB HEMETOLOGY METHOD 08/17/2024 10:06 AM EDT [facility] Blood Venous blood specimen / Unknown Venipuncture / Unknown 08/17/2024 5:21 AM EDT 08/17/2024 9:22 AM EDT us Elizabeth Parker MD LAB BLOOD ORDERABLES Final Resu lt Performing Organization Address City/[facility]/ZIP Co de Phone Number [facility] [address] [place] [address], [place] [phone] * Magnesium (08/17/2024 5:21 AM EDT) Magnesium 2.2 1.9 - 2.6 mg/dL LAB CHEMISTRY METHOD 08/17/2024 10:30 AM EDT [facility] Blood Venous blood specimen / Unknown Venipuncture / Unknown 08/17/2024 5:21 AM EDT 08/17/2024 9:22 AM EDT us Elizabeth Parker MD LAB BLOOD ORDERABLES Final Resu lt Performing Organization Address City/[facility]/ZIP Co de Phone Number [facility] [address] [place] [address], [place] [phone] * (ABNORMAL) Comprehensive metabolic panel (08/17/2024 5:21 AM EDT) Pathologist [facility] Sodium 140 133 - 145 mmol/L LAB CHEMISTRY METHOD 08/17/2024 10:30 AM EDT [facility] Potassium 4.0 3.5 - 5.5 mmol/L LAB CHEMISTRY METHOD 08/17/2024 10:30 AM EDT [facility] Chloride 106 96 - 110 mmol/L LAB CHEMISTRY METHOD 08/17/2024 10:30 AM EDT [facility] CO2 26 21 - 32 mmol/L LAB CHEMISTRY METHOD 08/17/2024 10:30 AM EDT [facility] Anion Gap 8 3 - 11 LAB CHEMISTRY METHOD 08/17/2024 10:30 AM [facility] Glucose 96 70 - 100 mg/dL LAB CHEMISTRY METHOD 08/17/2024 10:30 AM [facility] BUN 29(H) 5 - 25 mg/dL LAB CHEMISTRY METHOD 08/17/2024 10:30 AM [facility] Creatinine 1.28(H) 0.50 - 1.10 mg/dL LAB CHEMISTRY METHOD 08/17/2024 10:30 AM [facility] eGFR 44(L) >=60 mL/min/1. 73m2 LAB CHEMISTRY METHOD 08/17/2024 10:30 AM [facility] Comment:Calculation based on the Chronic Kidney Disease Epidemiology Collaboration (CKD-EPI) equation refit without adjustment for race. BUN/Creatinine Ratio 22.7 LAB CHEMISTRY METHOD 08/17/2024 10:30 AM [facility] Calcium 8.9 8.5 - 10.5 mg/dL LAB CHEMISTRY METHOD 08/17/2024 10:30 AM [facility] AST (SGOT) 23 10 - 42 unit/L LAB CHEMISTRY METHOD 08/17/2024 10:30 AM [facility] ALT (SGPT) 24 10 - 60 unit/L LAB CHEMISTRY METHOD 08/17/2024 10:30 AM [facility] Alkaline Phosphatase 157(H) 42 - 121 unit/L LAB CHEMISTRY METHOD 08/17/2024 10:30 AM [facility] Total Protein 6.5 6.0 - 8.0 g/dL LAB CHEMISTRY METHOD 08/17/2024 10:30 AM [facility] Albumin 2.9(L) 3.2 - 5.0 g/dL LAB CHEMISTRY METHOD 08/17/2024 10:30 AM [facility] Total Bilirubin 0.4 0.0 - 1.4 mg/dL LAB CHEMISTRY METHOD 08/17/2024 10:30 AM EDT [facility] Blood Venous blood specimen / Unknown Venipuncture / Unknown 08/17/2024 5:21 AM EDT 08/17/2024 9:22 AM EDT us Elizabeth Parker MD LAB BLOOD ORDERABLES Final Resu lt [facility] [address] [place] [address], documented in this encounter Visit Diagnoses Diagnosis Encounter for other general examination documented in this encounter Care Teams Product Safety And Standards Engineer Relationship Specialty Start Date End Date Taylor Contreras MD [address] [place] [address] PCP - General Internal Medicine 02/18/11 documented as of this encounter
--- OUTSIDE RECORDS SUMMARY | 2024-11-25 09:15 | XMS_ITS | Encounter Summary ---
Author Organization [facility] Address [address] [facility] [address] [place] [address] Phone Care Team Providers Care Coffee Brewer Name Role Phone Taylor Contreras MD Primary Care Provider [phone] Encounter Details Date Type Department Care Team (Late Contact Info) Description 06/06/2021 Telephone [facility] [address] [facility] [address] [place] [address] Gary Brennan MD [address] [place] [phone] Social History Tobacco Use Types Packs/Day Years [...] for guidance. Please call her back at [phone] Thank you documented in this encounter Plan of Treatment Upcoming Encounters Date Type Department Care Team (Late st Contact Info) Description 02/27/2025 1:00 PM EST Office Visit [facility] [address] [facility] [address] [place] [address] Regine Young ARNP [address] [facility] [address] [place] [address] documented as of this encounter Visit Diagnoses Not on filedocumented in this encounter Care Teams Coffee Brewer Relationship Specialty Start Date End Date Taylor Contreras MD [address] [place], [place] PCP - General 03/19/20 documented as of this encounter
--- OUTSIDE RECORDS SUMMARY | 2024-11-25 09:15 | XMS_ITS | Encounter Summary ---
Author Organization [facility] Address [address] [place] [address] Care Team Providers Care Air Commodore Name Role Phone Taylor Contreras MD Primary Care Provider [phone] Josselyn Rice RN Unavailable [phone] Encounter Details Date Type Department Care Team (Late st Contact Info) Description 09/21/2015 Scanned Document [address] [place] [phone] Provider, Generic Social History Tobacco Use Types [...] on filedocumented in this encounter Care Teams Air Commodore Relationship Specialty Start Date End Date Taylor Contreras MD [address] [facility] [address] [place] [address] PCP - General Internal Medicine 10/05/15 Josselyn Rice RN [address] [place] [address] Oncology Nurse Navigator 11/07/15 documented as of this encounter
--- OUTSIDE RECORDS SUMMARY | 2024-11-25 09:15 | XMS_ITS | Clinical Summary ---
Author Organization [facility] Address [address] [place] [address] Care Team Providers Care Fermenter Operator Name Role Phone Taylor Contreras MD Primary Care Provider [phone] Josselyn Rice RN Unavailable [phone] Allergies Active Allergy Reactions Criticality Noted [...] [place] [id number] MEDICARE PART A & B [facility] PPO JOSE CARLOS [id number] Advance Directives * Full Code (Latest Code Status on File) Date Activated Date Inactivated Comments 11/05/2015 5:07 PM 11/11/2015 9:17 PM * Full Code Date Activated Date Inactivated Comments 11/05/2015 6:11 AM 11/05/2015 5:07 PM Care Teams Fermenter Operator Relationship Specialty Start Date End Date Taylor Contreras MD [facility] [address] [place] [address] PCP - General Internal Medicine 10/05/15 Josselyn Rice RN [address] [address] Oncology Nurse Navigator 11/07/15
--- OUTSIDE RECORDS SUMMARY | 2024-11-25 09:15 | XMS_ITS | Encounter Summary ---
Author Organization [facility] Address [address] [place] [address] Care Team Providers Care Sensitizer Name Role Phone Taylor Contreras MD Primary Care Provider [phone] Josselyn Rice RN Unavailable [phone] Encounter Details Date Type Department Care Team (Late st Contact Info) Description 11/01/2015 Prep for Surgery [facility] Urolog[facility] Surgery [address] [place] [address] Matthew Moreno MD [address] [address] Social History Tobacco Use Types Packs/Day Years [...] on filedocumented in this encounter Care Teams Sensitizer Relationship Specialty Start Date End Date Taylor Contreras MD [address] [facility] [address] [place] [address] PCP - General Internal Medicine 10/05/15 Josselyn Rice RN [address] [address] Oncology Nurse Navigator 11/07/15 documented as of this encounter
--- OUTSIDE RECORDS SUMMARY | 2024-11-25 09:15 | XMS_ITS | Clinical Summary ---
Author Organization [facility] Address [address] [place] [address] Phone Care Team Providers Care Deckhand Shrimp Boat Name Role Phone Taylor Contreras MD Primary Care Provider [phone] Allergies Active Allergy Reactions Criticality Noted Date [...] Office Visit [facility] [address] [phone] Regine Young ARNP [address] [address] Health Maintenance Due Date Last [...] PM EDT) Hemoglobin A1C 6.0 (4-6) % [facility] 3 Comment: HEMOGLOBIN A1C(%) GLUCOSE CONTROL INDEX <6% EXCELLENT 6-7% VERY GOOD 7-8% GOOD 8-10% FAIR >10% POOR Hemoglobin (Hb) A1c testing is performed by Nesha Layla-quant immunoassay. Any cause of shortened erythrocyte survival will reduce exposure of erythrocytes to glucose with a consequent decrease in Hb A1c (%). Testing performed or reported by ~[facility], ~a Service of [facility], ~[address] [place] [address]~ 12/22/2018 1:42 PM EDT us Gary Brennan MD LAB BLOOD ORDERABLES Final Re sult [facility] 3 from Last 3 Months or Most Recently Relevant to Health Maintenance Insurance Medicare [facility] Medicare [facility] Care Teams Deckhand Shrimp Boat Relationship Specialty Start Date End Date Taylor Contreras MD [address] [place], [place] PCP - General 03/19/20
--- OUTSIDE RECORDS SUMMARY | 2024-11-25 09:15 | XMS_ITS | Encounter Summary ---
Author Organization [facility] Address [address] [place] [address] Care Team Providers Care Judicial Law Clerk Name Role Phone Taylor Contreras MD Primary Care Provider [phone] Encounter Details Date Type Department Care Team (Late st Contact Info) Description 08/13/2024 Lab Requisition [facility] - Main Lab [address] [facility] [place] [address] Elizabeth Parker MD [address] [place] [address] Encounter for other general examination Social History [...] CBC auto differential (08/13/2024 6:45 AM EDT) [facility] WBC 8.1 4.8 - 10.8 [...] LAB HEMETOLOGY METHOD 08/13/2024 10:53 AM EDT [facility] Blood Venous blood specimen / Unknown Venipuncture / Unknown 08/13/2024 6:45 AM EDT 08/13/2024 9:49 AM EDT us Elizabeth Parker MD LAB BLOOD ORDERABLES Final Resu lt Performing Organization Address [facility]/ZIP Co de Phone Number [facility] [address] [place] [address], [place] [phone] * (ABNORMAL) Magnesium (08/13/2024 6:45 AM EDT) Pathologist [facility] Magnesium 1.8(L) 1.9 - 2.6 mg/dL LAB CHEMISTRY METHOD 08/13/2024 11:24 AM EDT [facility] Blood Venous blood specimen / Unknown Venipuncture / Unknown 08/13/2024 6:45 AM EDT 08/13/2024 9:49 AM EDT us Elizabeth Parker MD LAB BLOOD ORDERABLES Final Resu lt Performing Organization Address [facility] de Phone Number [facility] [address] [place] [address], [place] [phone] * (ABNORMAL) Comprehensive metabolic panel (08/13/2024 6:45 AM EDT) Pathologist [facility] Sodium 143 133 - 145 mmol/L LAB CHEMISTRY METHOD 08/13/2024 11:24 AM EDT [facility] Potassium 4.3 3.5 - 5.5 mmol/L LAB CHEMISTRY METHOD 08/13/2024 11:24 AM EDT [facility] Chloride 106 96 - 110 mmol/L LAB CHEMISTRY METHOD 08/13/2024 11:24 AM EDT [facility] CO2 30 21 - 32 mmol/L LAB CHEMISTRY METHOD 08/13/2024 11:24 AM EDT [facility] Anion Gap 7 3 - [...] LAB CHEMISTRY METHOD 08/13/2024 11:24 AM EDT [facility] Blood Venous blood specimen / Unknown Venipuncture / Unknown 08/13/2024 6:45 AM EDT 08/13/2024 9:49 AM EDT us Elizabeth Parker MD LAB BLOOD ORDERABLES Final Resu lt [facility] [address] [place] [address], documented in this encounter Visit Diagnoses Diagnosis Encounter for other general examination documented in this encounter Care Teams Judicial Law Clerk Relationship Specialty Start Date End Date Taylor Contreras MD [address] [place] [address] PCP - General Internal Medicine 02/18/11 documented as of this encounter
--- OUTSIDE RECORDS SUMMARY | 2024-11-25 09:15 | XMS_ITS | Encounter Summary ---
Author Organization [facility] Address [address] [place] [address] Care Team Providers Care Teamcenter Solution Architect Name Role Phone Taylor Contreras MD Primary Care Provider Josselyn Rice RN Unavailable [phone] Encounter Details Date Type Department Care Team (Late st Contact Info) Description 09/04/2015 Scanned Document [address] [place] [phone] Provider, Generic Social History Tobacco Use Types [...] on filedocumented in this encounter Care Teams Teamcenter Solution Architect Relationship Specialty Start Date End Date Taylor Contreras MD [address] [facility] [place] [address] [place] [address] PCP - General Internal Medicine 10/05/15 Josselyn Rice RN [address] [address] Oncology Nurse Navigator 11/07/15 documented as of this encounter
--- OUTSIDE RECORDS SUMMARY | 2024-11-25 09:15 | XMS_ITS | Clinical Summary ---
Author Organization [address] Address [address] [place] [phone] Phone Care Team Providers Care Direct Marketing Analyst Name Role Phone Taylor Contreras MD Primary Care Provider [phone] Surgical History Surgery Date Site/Laterality Comments NEPHRECTOMY [...] LAB CHEMISTRY METHOD 08/17/2024 10:30 AM EDT [facility] Potassium 4.0 3.5 - 5.5 mmol/L LAB CHEMISTRY METHOD 08/17/2024 10:30 AM [facility] Chloride 106 96 - 110 mmol/L LAB CHEMISTRY METHOD 08/17/2024 10:30 AM [facility] CO2 26 21 - 32 mmol/L LAB CHEMISTRY METHOD 08/17/2024 10:30 AM [facility] Anion Gap 8 3 - 11 LAB CHEMISTRY METHOD 08/17/2024 10:30 AM [facility] Glucose 96 70 - 100 mg/dL LAB CHEMISTRY METHOD 08/17/2024 10:30 AM [facility] BUN 29(H) 5 - 25 mg/dL LAB CHEMISTRY METHOD 08/17/2024 10:30 AM [facility] Creatinine 1.28(H) 0.50 - 1.10 mg/dL LAB CHEMISTRY METHOD 08/17/2024 10:30 AM [facility] eGFR 44(L) >=60 mL/min/1. 73m2 LAB CHEMISTRY METHOD 08/17/2024 10:30 AM [facility] Comment:Calculation based on the Chronic Kidney Disease Epidemiology Collaboration (CKD-EPI) equation refit without adjustment for race. BUN/Creatinine Ratio 22.7 LAB CHEMISTRY METHOD 08/17/2024 10:30 AM [facility] Calcium 8.9 8.5 - 10.5 mg/dL LAB CHEMISTRY METHOD 08/17/2024 10:30 AM [facility] AST (SGOT) 23 10 - 42 unit/L LAB CHEMISTRY METHOD 08/17/2024 10:30 AM [facility] ALT (SGPT) 24 10 - 60 unit/L LAB CHEMISTRY METHOD 08/17/2024 10:30 AM [facility] Alkaline Phosphatase 157(H) 42 - 121 unit/L LAB CHEMISTRY METHOD 08/17/2024 10:30 AM EDT [facility] Total Protein 6.5 6.0 - 8.0 g/dL LAB CHEMISTRY METHOD 08/17/2024 10:30 AM EDT [facility] Albumin 2.9(L) 3.2 - 5.0 g/dL LAB CHEMISTRY METHOD 08/17/2024 10:30 AM EDT [facility] Total Bilirubin 0.4 0.0 - 1.4 mg/dL LAB CHEMISTRY METHOD 08/17/2024 10:30 AM EDT [facility] Blood Venous blood specimen / Unknown Venipuncture / Unknown 08/17/2024 5:21 AM EDT 08/17/2024 9:22 AM EDT us Elizabeth Parker MD LAB BLOOD ORDERABLES Final Resu lt [facility] [address] [place] [address], from Last 3 Months or Most Recently Relevant to Health Maintenance Insurance [facility] Care Teams Direct Marketing Analyst Relationship Specialty Start Date End Date Taylor Contreras MD [address] [place] [phone] PCP - General Internal Medicine 02/18/11
== END 2024-11-24 08:39 | disposition home or self-care (01) ==
LOC: HO.HOSX 08:38
PROVIDERS: Visit Provider Physician Assistant
DX: M25.571 Pain in right ankle and joints of right foot (principal); Z98.890 Other specified postprocedural states; Z87.81 Personal history of (healed) traumatic fracture
CPT/HCPCS: 73610; 99212

== ENCOUNTER 2024-11-24 14:07 | Outpatient (AMB) | payer MEDICARE, SELFPAY ==
--- NOTE | 2024-11-24 14:37 | A.OFFVIS_ITS ---
Intake Visit Reasons: OV- Right Ankle ORIF 08/10/24 NE w/ xrays Intake Note: Dorie is a 74 year old female who presents today for a follow up of her right ankle ORIF done on 08/10/[address] Clifford. At her last visit she will continue working with physical therapy. Patient reports she finished with physical therapy and they said that she did great and she was feeling good. She mentions that her pain came back again and it started about 2 weeks ago. Her pain is behind the knee and it moves up to behind her thigh. Allergies amoxicillin Allergy (Verified 11/24/24 14:38) Rash Iodinated Contrast Media (Contrast Dye) Allergy (Verified 11/24/24 14:38) Rash, [place] like Blood Boiling nickel Allergy (Verified 11/24/24 14:38) Rash rubber, unspecified Allergy (Verified 11/24/24 14:38) + Rxn from allergy testing Sulfa (Sulfonamide Antibiotics) Allergy (Verified 11/24/24 14:38) Swelling HPI HPI OV- Right Ankle ORIF 08/10/24 NE w/ xrays: Details: Ms. Treadwell this is a 74-year-old female who presents to the office today status post right ankle ORIF performed on 08/10/[address] Clifford. Patient is reporting right knee pain at today's visit. She reports that she does not have any pain in the right ankle. She has been using supportive walking sneakers. She denies any concern with the right ankle. [facility] Medical History Fatty liver History of chemotherapy Arthritis of spine Back pain Hx of diarrhea Diabetes History of headache TAMARA (obstructive sleep apnea) Elevated cholesterol HTN (hypertension) Surgical History Hx of varicose vein ligation and stripping History of lumpectomy of right breast History of lumpectomy of left breast History of kidney surgery History of nephrectomy, left Social History Are you a primary laboratory animal caretaker to a significant other at home: No Do you presently have visiting nurse or other home services: No Comment: COUNTS CORRECT Patient Tobacco Use Status: Former Tobacco user Tobacco use type: Cigarette Second Hand Smoke Exposure: No service: No Review of Systems Const All systems reviewed & are unremarkable except as noted in HPI and below Physical Exam Extrem Other: Right ankle: Skin intact. No erythema or signs of infection. Patient is able to demonstrate dorsiflexion, plantar flexion, pronation and supination without discomfort and to end range. NVI. Assessment & Plan Assessment & Plan (1) Status post ORIF of fracture of ankle: Code(s): Z98.890 - Other specified postprocedural states; Z87.81 - Personal history of (healed) traumatic fracture Category: Surgical Plan Ms. Treadwell this is a 74-year-old female who presents to the office today status post right ankle ORIF performed on 08/10/[address] Clifford. Patient is reporting right knee pain at today's visit. She reports that she does not have any pain in the right ankle. She has been using supportive walking sneakers. She denies any concern with the right ankle. Patient will continue performing home exercise program for the right ankle. She will gradually return back to normal activities using pain as her guide. X-rays were obtained in the office today and reviewed by me, Brittany Tilley PA-C, and revealed intact orthopedic hardware with routine healing. She will follow up PRN, sooner if needed. In regards to the patient's right knee pain I have offered her an appointment tomorrow for evaluation. Orders: Orders XR ankle RT min 3V Today M25.579 - Pain in unspecified ankle and joints of unspecified foot Coding Level of Care Code Est Pt Level 3 (46271) Diagnoses Status post ORIF of fracture of ankle Z98.890; Z87.81
--- OUTSIDE RECORDS SUMMARY | 2024-11-24 16:04 | XMS_ITS | Clinical Summary ---
Author Organization [facility] Address [address] [place] [address] Care Team Providers Care Multicut Line Operator Name Role Phone Taylor Contreras MD Primary Care Provider [phone] Josselyn Rice RN Unavailable [phone] Allergies Active Allergy Reactions Criticality Noted [...] Health Maintenance Due Date Last Done Comments Advance Care Planning 1950 Hepatitis C Virus Screening 1950 COVID-19 Vaccine (#1) 10/25/1955 DTaP/Tdap/Td Vaccines (1 - Tdap) 1969 Pneumococcal Vaccines 50+ (1 of 2 - PCV) 1969 Zoster (Shingles) Vaccine (1 of 2) 1969 Mammogram 1990 Colonoscopy 10/25/1995 RSV Vaccine 60 years and old er and Patients (1 - Risk 60-74 years 1-dose series) 2010 DXA Bone Density (Females,Ag es 65 and older) 10/25/2015 Influenza Vaccine 10/07/2024 Hepatitis B Vaccines Aged Out No long er eligible based on patient's age [place] [address] MEDICARE PART A & B [facility] PPO JOSE CARLOS [id number] Advance Directives * Full Code (Latest Code Status on File) Date Activated Date Inactivated Comments 11/05/2015 5:07 PM 11/11/2015 9:17 PM * Full Code Date Activated Date Inactivated Comments 11/05/2015 6:11 AM 11/05/2015 5:07 PM Care Teams Multicut Line Operator Relationship Specialty Start Date End Date Taylor Contreras MD [facility] [address] [place] [address] PCP - General Internal Medicine 10/05/15 Josselyn Rice RN [address] [address] Oncology Nurse Navigator 11/07/15
--- OUTSIDE RECORDS SUMMARY | 2024-11-24 16:04 | XMS_ITS | Clinical Summary ---
Author Organization [facility] Address [address] [facility] [address] [place] [address] Phone Care Team Providers Care Oracle Database Consultant Name Role Phone Taylor Contreras MD Primary Care Provider [phone] Allergies Active Allergy Reactions Criticality Noted Date Comments Amoxicillin Rash Medium 10/11/2015 Iodinated Contrast Media Hives Medium 03/03/2007 Nickel Rash,Other (see comments) Low 10/11/2015 Sulfa Antibiotics Swelling Medium 10/11/2015 Medications DULoxetine (CYMBALTA) [address] capsule duloxetine 30 mg capsule,delayed release TAKE 1 CAPSULE BY MOUTH DAILY TAKE WITH 60 MG DOSE TO MAKE TOTAL DOSE OF 90 MG 1 Active DULoxetine (CYMBALTA) [address] capsule TAKE 1 CAPSULE BY MOUTH DAILY TAKE ALONG WITH 30 TO MAKE 90 MG DOSE 1 Active gabapentin (NEURONTIN) 600 MG tablet Take 1 tablet by mouth 3 Active carvedilol (Coreg) 25 MG tablet Take 3 tablets (75 mg total) by mouth in the morning and 3 tablets (75 mg total) in the evening. Take with meals. 540 tablet 3 4 Active atorvastatin (LIPITOR) 40 MG tablet Take 40 mg by mouth 1 (one) time each day Active glipiZIDE (GLUCOTROL) 5 MG tabletIndicatio ns:Type 2 Diabetes Mellitus Take 5 mg by mouth in the morning and 5 mg in the evening. Take before meals. Take 2 in the am, 1 in the pm. Active losartan (COZAAR) 100 MG tabletIndicatio ns:Hypertension Take 1 tablet (100 mg total) by mouth 1 (one) time each day 90 tablet 3 4 02/29/20 25 Active Cholecalciferol (Vitamin D-3) 25 MCG (1000 UT) capsuleIndicati ons:Vitamin D Deficiency Take 1,000 Units by mouth 1 (one) time each day Active Active Problems Problem Noted Date Diagnosed Date Vitamin D deficiency, not otherwise specified Anemia in chronic kidney disease 03/26/2021 Chronic kidney disease stage 3 03/26/2021 Hyperlipidemia 03/26/2021 Ischemic colitis 03/26/2021 Lung mass 03/26/2021 Obstructive sleep apnea syndrome 03/26/2021 Peripheral venous insufficiency 03/26/2021 Lung function testing abnormal 03/26/2021 Renal cell carcinoma 03/26/2021 Hypertensive renal disease 03/26/2021 Renal stone 03/26/2021 Metastatic malignant neoplasm to unknown site Preoperative examination, unspecified 02/06/2021 Severe obesity 02/06/2021 Tubular adenoma of colon 09/20/2020 Overview (03/26/2021): repeat screening colonoscopy in 2025 Chronic kidney disease 06/03/2016 Malignant tumor of kidney 06/03/2016 H/O: malignant neoplasm 03/19/2016 Injury of kidney 11/25/2015 Renal mass 10/11/2015 Brachial radiculitis 04/14/2012 Cervical radiculopathy 04/14/2012 Hereditary and idiopathic peripheral neuropathy 11/14/2011 Idiopathic peripheral neuropathy 11/14/2011 Hypertension 08/25/2005 Malignant tumor of breast 08/25/2000 Immunizations Immunization Administration Dates Next Due Influenza Whole 01/16/2020,12/16/2018,06/09/2008 Pfizer SARS-COV-2 07/30/2020,07/09/2020 Pneumococcal Conjugate 13-Valent 02/14/2016,12/0 09/2015 Pneumococcal Polysaccharide 12/07/2017 Td, Unspecified 10/03/2005 Tdap 01/09/2015 Family History Medical History Relation Comments Cancer Father lung Hypertension Father Diabetes Mother Gout Mother Heart disease Mother Hypertension Mother Kidney disease Sibling 1 two brother shanti gest brother ADPK Diabetes Sibling 2 brother and sist er Hypertension Sibling 3 all but one brot her Heart disease Sibling 4 second oldest br other Cancer Sibling 5 oldest brother b rain tumor Stroke Sibling 6 second oldest br other mini strokes Relation Status Comments Father Mother Sibling 1 Sibling 2 Sibling 3 Sibling 4 Sibling 5 Sibling 6 Social History Tobacco Use Types Packs/Day Years Used Date Smoking Tobacco: Never Smokeless Tobacco: Never Tobacco Cessation:Counseling Given: Not Answered Alcohol Use Standard Drinks/Week Comments Yes 0 (1 standard drink = 0.6 oz pur e alcohol) Comments Unknown Sex and Gender Information Value Date Recorded Sex Assigned at Not on file Legal Sex Female 5:24 PM EST Gender Identity Not on file Sexual Orientation Not on file Last Filed Vital Signs Vital Sign Reading Time Taken Comments Blood Pressure 120/64 02/29/2024 2:17 PM EST Pulse 106 02/29/2024 1:57 PM EST Temperature - - Respiratory Rate - - Oxygen Saturation 93% 12/31/2022 2:37 PM EDT Inhaled Oxygen Concentration - - Weight 121 kg (266 lb) 02/29/2024 1:57 PM EST Height 172.7 cm (5' 8 ) 12/31/2022 2:37 PM EDT Body Mass Index 40.45 12/31/2022 2:37 PM EDT Plan of Treatment Upcoming Encounters Date Type Department Care Team (Late st Contact Info) Description 02/27/2025 1:00 PM EST Office Visit [facility] [address] [phone] Regine Young ARNP [address] [address] Health Maintenance Due Date Last Done Comments Breast Cancer Screening 1950 Colorectal Cancer Screening: Annual FOBT 10/25/1999 Colorectal Cancer Screening: Colonoscopy 10/25/1999 Colorectal Cancer Screening: Sigmoidoscopy 10/25/1999 Diabetes: Hemoglobin A1C 02/10/2022 12/22/2018 Diabetes: Ophthalmology Exam 02/10/2022 Diabetes: Pedal Pulse Checked 02/10/2022 Diabetes: Sensory Foot Exam 02/10/2022 Diabetes: Visual Foot Exam 02/10/2022 Influenza Vaccine (#1) 2024 0, 12/16/2018, 06/09/2008 Pneumococcal Vaccine: 50+ Years Completed 12/07/2017, 02/14/2016, 02/13/2016 Pneumococcal Vaccine: Peds ( 0 to 5 Years) and At-Risk Patients (6 to 49 Years) Discontinued 12/07/2017, 02/14/2016, 02/13/2016 Hepatitis B Vaccine Aged Out No longe r eligible based on patient's age to complete this topic Procedures Procedure Name Priority Date/Time Associated Diagnosis Comments HEMOGLOBIN A1C Routine 12/22/2018 1:42 PM EDT from Last 3 Months or Most Recently Relevant to Health Maintenance Results * Hemoglobin A1c (12/22/2018 1:42 PM EDT) Hemoglobin A1C 6.0 (4-6) % [facility] 3 Comment: HEMOGLOBIN A1C(%) GLUCOSE CONTROL INDEX <6% EXCELLENT 6-7% VERY GOOD 7-8% GOOD 8-10% FAIR >10% POOR Hemoglobin (Hb) A1c testing is performed by Nesha Layla-quant immunoassay. Any cause of shortened erythrocyte survival will reduce exposure of erythrocytes to glucose with a consequent decrease in Hb A1c (%). Testing performed or reported by ~[facility], ~a Service of [facility], ~[address] [place] [id number]~ 12/22/2018 1:42 PM EDT us Gary Brennan MD LAB BLOOD ORDERABLES Final Re sult [facility] 3 from Last 3 Months or Most Recently Relevant to Health Maintenance Insurance Medicare [facility] Medicare [facility] Care Teams Oracle Database Consultant Relationship Specialty Start Date End Date Taylor Contreras MD [address] [place], [place] PCP - General 03/19/20
--- OUTSIDE RECORDS SUMMARY | 2024-11-24 16:04 | XMS_ITS | Encounter Summary ---
Author Organization [facility] Address [address] [place] [address] Care Team Providers Care Arch Cushion Press Operator Name Role Phone Taylor Contreras MD Primary Care Provider [phone] Encounter Details Date Type Department Care Team (Late st Contact Info) Description 08/13/2024 Lab Requisition [facility] - Main Lab [address] [facility] [place] [address] Elizabeth Parker MD [address] [place] [address] Encounter for other general examination Social History [...] CBC auto differential (08/13/2024 6:45 AM EDT) [facility] WBC 8.1 4.8 - 10.8 K/mcL LAB [...] LAB HEMETOLOGY METHOD 08/13/2024 10:53 AM EDT [facility] Blood Venous blood specimen / Unknown Venipuncture / Unknown 08/13/2024 6:45 AM EDT 08/13/2024 9:49 AM EDT us Elizabeth Parker MD LAB BLOOD ORDERABLES Final Resu lt Performing Organization Address [facility]/ZIP Co de Phone Number [facility] [address] [place] [address], [place] [phone] * (ABNORMAL) Magnesium (08/13/2024 6:45 AM EDT) Pathologist [facility] Magnesium 1.8(L) 1.9 - 2.6 mg/dL LAB CHEMISTRY METHOD 08/13/2024 11:24 AM EDT [facility] Blood Venous blood specimen / Unknown Venipuncture / Unknown 08/13/2024 6:45 AM EDT 08/13/2024 9:49 AM EDT us Elizabeth Parker MD LAB BLOOD ORDERABLES Final Resu lt Performing Organization Address [facility] de Phone Number [facility] [address] [place] [address], [place] [phone] * (ABNORMAL) Comprehensive metabolic panel (08/13/2024 6:45 AM EDT) Pathologist [facility] Sodium 143 133 - 145 mmol/L LAB CHEMISTRY METHOD 08/13/2024 11:24 AM EDT [facility] Potassium 4.3 3.5 - 5.5 mmol/L LAB CHEMISTRY METHOD 08/13/2024 11:24 AM EDT [facility] Chloride 106 96 - 110 mmol/L LAB CHEMISTRY METHOD 08/13/2024 11:24 AM EDT [facility] CO2 30 21 - 32 mmol/L LAB CHEMISTRY METHOD 08/13/2024 11:24 AM EDT [facility] Anion Gap 7 3 - [...] LAB CHEMISTRY METHOD 08/13/2024 11:24 AM EDT [facility] Blood Venous blood specimen / Unknown Venipuncture / Unknown 08/13/2024 6:45 AM EDT 08/13/2024 9:49 AM EDT us Elizabeth Parker MD LAB BLOOD ORDERABLES Final Resu lt [facility] [address] [place] [address], documented in this encounter Visit Diagnoses Diagnosis Encounter for other general examination documented in this encounter Care Teams Arch Cushion Press Operator Relationship Specialty Start Date End Date Taylor Contreras MD [address] [place] [address] PCP - General Internal Medicine 02/18/11 documented as of this encounter
--- OUTSIDE RECORDS SUMMARY | 2024-11-24 16:04 | XMS_ITS | Encounter Summary ---
Author Organization [facility] Address [address] [place] [address] Care Team Providers Care Program Director/Music Director Name Role Phone Taylor Contreras MD Primary Care Provider [phone] Josselyn Rice RN Unavailable [phone] Encounter Details Date Type Department Care Team (Late st Contact Info) Description 09/04/2015 Scanned Document [address] [place] [phone] Provider, Generic Social History Tobacco Use Types Packs/Day Years Used Date Smoking Tobacco: Never Assessed Comments Unknown Sex and Gender Information Value Date Recorded Sex Assigned at Not on file Legal Sex Female 3:27 PM EDT Gender Identity Not on file Sexual Orientation Not on file documented as of this encounter Plan of Treatment Not on file documented as of this encounter Visit Diagnoses Not on filedocumented in this encounter Care Teams Program Director/Music Director Relationship Specialty Start Date End Date Taylor Contreras MD [address] [facility] [address] [place] [address] PCP - General Internal Medicine 10/05/15 Josselyn Rice RN [address] [address] Oncology Nurse Navigator 11/07/15 documented as of this encounter
--- OUTSIDE RECORDS SUMMARY | 2024-11-24 16:04 | XMS_ITS | Encounter Summary ---
Author Organization [facility] Address [address] [place] [address] Care Team Providers Care Director Operating Room Name Role Phone Taylor Contreras MD Primary Care Provider [phone] Josselyn Rice RN Unavailable [phone] Encounter Details Date Type Department Care Team (Late st Contact Info) Description 04/29/2016 Scanned Document [address] [place] [phone] Provider, Generic Social History Tobacco Use Types [...] Procedure Name Priority Date/Time Associated Diagnosis Comments CT SCAN EXTERNAL RESULT 05/02/2016 LAB RESULT 04/29/2016 LAB RESULT 04/29/2016 documented in this encounter Results * CT SCAN EXTERNAL RESULT (05/02/2016) Anatomical Region Laterality Modality Computed Tomogra phy Narrative 06/05/2016 4:38 AM EDT Ordered by an unspecified provider. us Generic Provider IMG CT ORDERABLES Final Result * LAB RESULT (04/29/2016) Narrative 04/29/2016 Ordered by an unspecified provider. us Generic Provider HX AMB PROCEDURES Edited Result - Final * LAB RESULT (04/29/2016) Narrative 04/29/2016 Ordered by an unspecified provider. us Generic Provider HX AMB PROCEDURES Edited Result - Final documented in this encounter Visit Diagnoses Not on filedocumented in this encounter Care Teams Director Operating Room Relationship Specialty Start Date End Date Taylor Contreras MD [address] [facility] [address] [place] [address] PCP - General Internal Medicine 10/05/15 Josselyn Rice RN [address] [place] [address] Oncology Nurse Navigator 11/07/15 documented as of this encounter
--- OUTSIDE RECORDS SUMMARY | 2024-11-24 16:04 | XMS_ITS | Encounter Summary ---
Author Organization [facility] Address [address] [place] [address] Care Team Providers Care Used Car Renovator Name Role Phone Taylor Contreras MD Primary Care Provider [phone] Josselyn Rice RN Unavailable [phone] Encounter Details Date Type Department Care Team (Late st Contact Info) Description 11/01/2015 Prep for Surgery [facility] Urologic Surgery [address] [place] [address] Matthew Moreno MD [address] [address] Social History Tobacco Use Types Packs/Day Years [...] on filedocumented in this encounter Care Teams Used Car Renovator Relationship Specialty Start Date End Date Taylor Contreras MD [address] [facility] [address] [place] [address] PCP - General Internal Medicine 10/05/15 Josselyn Rice RN [address] [address] Oncology Nurse Navigator 11/07/15 documented as of this encounter
--- OUTSIDE RECORDS SUMMARY | 2024-11-24 16:04 | XMS_ITS | Encounter Summary ---
Author Organization [facility] Address [address] [facility] [address] [place] [address] Phone Care Team Providers Care Metal Building Assembler Name Role Phone Taylor Contreras MD Primary Care Provider [phone] Encounter Details Date Type Department Care Team (Late Contact Info) Description 06/06/2021 Telephone [facility] [address] [facility] [address] [place] [address] Gary Brennan MD [address] [place] [phone] Social History Tobacco Use Types Packs/Day Years [...] for guidance. Please call her back at [phone] Thank you documented in this encounter Plan of Treatment Upcoming Encounters Date Type Department Care Team (Late st Contact Info) Description 02/27/2025 1:00 PM EST Office Visit [facility] [address] [facility] [address] [place] [address] Regine Young ARNP [address] [facility] [address] [place] [address] documented as of this encounter Visit Diagnoses Not on filedocumented in this encounter Care Teams Metal Building Assembler Relationship Specialty Start Date End Date Taylor Contreras MD [address] [place], [place] PCP - General 03/19/20 documented as of this encounter
--- OUTSIDE RECORDS SUMMARY | 2024-11-24 16:04 | XMS_ITS | Encounter Summary ---
Author Organization [facility] Address [address] [place] [address] Care Team Providers Care Licensed Mass Real Estate Appraiser Name Role Phone Taylor Contreras MD Primary Care Provider [phone] Josselyn Rice RN Unavailable [phone] Encounter Details Date Type Department Care Team (Late st Contact Info) Description 11/05/2015 Scanned Document [address] [place] [phone] Provider, Generic Social History Tobacco Use Types [...] Procedure Name Priority Date/Time Associated Diagnosis Comments LAB RESULT 11/28/2015 LAB RESULT 11/27/2015 HX PHYSICIAN ORDER 11/05/2015 PATHOLOGY SURGERY 11/05/2015 documented in this encounter Results * LAB RESULT (11/28/2015) Narrative 11/28/2015 Ordered by an unspecified provider. us Generic Provider HX AMB PROCEDURES Edited Result - Final * LAB RESULT (11/27/2015) Narrative 11/27/2015 Ordered by an unspecified provider. us Generic Provider HX AMB PROCEDURES Edited Result - Final * HX PHYSICIAN ORDER (11/05/2015) Narrative 11/05/2015 Ordered by an unspecified provider. us Generic Provider HX AMB PROCEDURES Final Result * PATHOLOGY SURGERY (11/05/2015) Narrative 11/05/2015 Ordered by an unspecified provider. us Generic Provider HHC HX PATH PROCEDURES Edited R esult - Final documented in this encounter Visit Diagnoses Not on filedocumented in this encounter Care Teams Licensed Mass Real Estate Appraiser Relationship Specialty Start Date End Date Taylor Contreras MD [address] [facility] [address] [place] [address] PCP - General Internal Medicine 10/05/15 Josselyn Rice RN [address] [place] [address] Oncology Nurse Navigator 11/07/15 documented as of this encounter
--- OUTSIDE RECORDS SUMMARY | 2024-11-24 16:04 | XMS_ITS | Clinical Summary ---
Author Organization [address] Address [address] [place] [phone] Phone Care Team Providers Care Heart Specialist Name Role Phone Taylor Contreras MD Primary Care Provider [phone] Surgical History Surgery Date Site/Laterality Comments NEPHRECTOMY PROCEDURE: HISTORICAL NEPHRECTOMY; COMMENT: left; donor age 25 LEG SURGERY PROCEDURE: HISTORICAL LEG SURGERY; COMMENT: right, varicose veins BREAST LUMPECTOMY 1999 PROCEDURE: HISTORICAL BREAST LUMPECTOMY Medical History Medical History Date Comments Hypertension DX:Hypertension Hypercholesteremia DX:Hyperchole steremia Peripheral neuropathy DX:Periphe ral neuropathy History of breast cancer in female 2000 DX:History of breast cancer in female; COMMENT: left; lumpectomy, chemo & radiation 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 Family History Medical History Relation Name Comments Breast cancer Maternal Grandmother Colon cancer Neg Hx Ovarian cancer Neg Hx Uterine cancer Neg Hx Relation Name Status Comments Maternal Grandmother Social History Tobacco Use Types Packs/Day Years [...] on file Sexual Orientation Not on file Obstetrics History Plan of Treatment Health Maintenance Due Date Last Done Comments Breast Cancer Screening 1950 Zoster Vaccines (1 of 2) 1969 RSV Immunization Adult Patients (1 - Risk 60-74 years 1-dose series) 2010 COVID-19 Vaccine (3 - Pfizer risk series) 08/27/2020 07/30/2020, 07/09/2020 Depression Screening 03/09/2024 Cholesterol Screening (Lipid Panel) 08/13/2024 Colorectal Cancer Screening: Colonoscopy 08/13/2024 Falls Risk Assessment 08/13/2024 Hepatitis C Screening 08/13/2024 Medicare Annual Wellness Visit 08/13/2024 Osteoporosis Screening (Bone Density Screening) 08/13/2024 Social Influencers of Health Screening 08/13/2024 Influenza Vaccine (#1) 2024 , 12/16/2018, 12/07/2012, Additional history exists DTaP,Tdap,and Td Vaccines (3 - Td or Tdap) 01/09/2025 01/09/2015, 10/03/2005 Hypertension/CHF/CAD Annual BMP Blood Test 08/17/2025 08/17/2024, 08/13/2024 Pneumococcal Vaccine: 50+ Years Completed 12/07/2017, 02/14/2016, 02/13/2016 HIB Vaccines Aged Out No longer eligi ble based on patient's age to complete this topic HPV Vaccines Aged Out No longer eligi ble based on patient's age to complete this topic Hepatitis A Vaccines Aged Out No long er eligible based on patient's age to complete this topic Hepatitis B Vaccines Aged Out No long er eligible based on patient's age to complete this topic IPV Vaccines Aged Out No longer eligi ble based on patient's age to complete this topic MMR Vaccines Aged Out No longer eligi ble based on patient's age to complete this topic Meningococcal ACWY Vaccine Aged Out N o longer eligible based on patient's age to complete this topic Meningococcal B Vaccine Aged Out No l onger eligible based on patient's age to complete this topic RSV Immunization Patients Under 20 months Aged Out No longer eligible based on patient's age to complete this topic Varicella Vaccines Aged Out No longer eligible based on patient's age to complete this topic Procedures Procedure Name Priority Date/Time Associated Diagnosis Comments COMPREHENSIVE METABOLIC PANEL Routine 08/17/2024 5:21 AM EDT Encounter for other general examination from Last 3 Months or Most Recently Relevant to Health Maintenance Results * (ABNORMAL) Comprehensive metabolic panel (08/17/2024 5:21 AM EDT) Sodium 140 133 - 145 mmol/L LAB CHEMISTRY METHOD 08/17/2024 10:30 AM EDT [facility] Potassium 4.0 3.5 - 5.5 mmol/L LAB CHEMISTRY METHOD 08/17/2024 10:30 AM [facility] Chloride 106 96 - 110 mmol/L LAB CHEMISTRY METHOD 08/17/2024 10:30 AM [facility] CO2 26 21 - 32 mmol/L LAB CHEMISTRY METHOD 08/17/2024 10:30 AM [facility] Anion Gap 8 3 - 11 LAB CHEMISTRY METHOD 08/17/2024 10:30 AM [facility] Glucose 96 70 - 100 mg/dL LAB CHEMISTRY METHOD 08/17/2024 10:30 AM [facility] BUN 29(H) 5 - 25 mg/dL LAB CHEMISTRY METHOD 08/17/2024 10:30 AM [facility] Creatinine 1.28(H) 0.50 - 1.10 mg/dL LAB CHEMISTRY METHOD 08/17/2024 10:30 AM [facility] eGFR 44(L) >=60 mL/min/1. 73m2 LAB CHEMISTRY METHOD 08/17/2024 10:30 AM [facility] Comment:Calculation based on the Chronic Kidney Disease Epidemiology Collaboration (CKD-EPI) equation refit without adjustment for race. BUN/Creatinine Ratio 22.7 LAB CHEMISTRY METHOD 08/17/2024 10:30 AM [facility] Calcium 8.9 8.5 - 10.5 mg/dL LAB CHEMISTRY METHOD 08/17/2024 10:30 AM [facility] AST (SGOT) 23 10 - 42 unit/L LAB CHEMISTRY METHOD 08/17/2024 10:30 AM [facility] ALT (SGPT) 24 10 - 60 unit/L LAB CHEMISTRY METHOD 08/17/2024 10:30 AM [facility] Alkaline Phosphatase 157(H) 42 - 121 unit/L LAB CHEMISTRY METHOD 08/17/2024 10:30 AM EDT [facility] Total Protein 6.5 6.0 - 8.0 g/dL LAB CHEMISTRY METHOD 08/17/2024 10:30 AM EDT [facility] Albumin 2.9(L) 3.2 - 5.0 g/dL LAB CHEMISTRY METHOD 08/17/2024 10:30 AM EDT [facility] Total Bilirubin 0.4 0.0 - 1.4 mg/dL LAB CHEMISTRY METHOD 08/17/2024 10:30 AM EDT [facility] Blood Venous blood specimen / Unknown Venipuncture / Unknown 08/17/2024 5:21 AM EDT 08/17/2024 9:22 AM EDT us Elizabeth Parker MD LAB BLOOD ORDERABLES Final Resu lt [facility] [address] [place] [address], from Last 3 Months or Most Recently Relevant to Health Maintenance Insurance MEDICARE [facility] Care Teams Heart Specialist Relationship Specialty Start Date End Date Taylor Contreras MD [address] [place] [address] PCP - General Internal Medicine 02/18/11
--- OUTSIDE RECORDS SUMMARY | 2024-11-24 16:04 | XMS_ITS | Encounter Summary ---
Author Organization [facility] Address [address] [place] [address] Care Team Providers Care Biology Faculty Member Name Role Phone Taylor Contreras MD Primary Care Provider [phone] Encounter Details Date Type Department Care Team (Late st Contact Info) Description 08/17/2024 Lab Requisition [facility] [address] [facility] [place] [address] Elizabeth Parker MD [address] [place] [phone] Encounter for other general examination Social History [...] Diagnosis Comments CBC WITH AUTO DIFFERENTIAL Routine 08/17/2024 5:21 AM EDT Encounter for other general examination CBC AND DIFFERENTIAL Routine 08/17/2024 5:21 AM EDT Encounter for other general examination MAGNESIUM Routine 08/17/2024 5:21 AM EDT Encounter for other general examination COMPREHENSIVE METABOLIC PANEL Routine 08/17/2024 5:21 AM EDT Encounter for other general examination documented in this encounter Results * (ABNORMAL) CBC auto differential (08/17/2024 5:21 AM EDT) [facility] WBC 7.9 4.8 - 10.8 K/mcL LAB HEMETOLOGY METHOD 08/17/2024 10:06 AM [facility] RBC 3.30(L) 3.80 - 4.80 M/mcL LAB HEMETOLOGY METHOD 08/17/2024 10:06 AM [facility] Hemoglobin 9.4(L) 11.5 - 16.0 g/dL LAB HEMETOLOGY METHOD 08/17/2024 10:06 AM [facility] Hematocrit 30.5(L) 35.0 - 47.0 % LAB HEMETOLOGY METHOD 08/17/2024 10:06 AM [facility] MCV 93.3 79.0 - 98.0 FL LAB HEMETOLOGY METHOD 08/17/2024 10:06 AM [facility] MCH 28.7 27.0 - 32.0 pcg LAB HEMETOLOGY METHOD 08/17/2024 10:06 AM [facility] MCHC 30.8(L) 32.0 - 37.0 g/dL LAB HEMETOLOGY METHOD 08/17/2024 10:06 AM [facility] RDW 15.0 11.0 - 15.0 % LAB HEMETOLOGY METHOD 08/17/2024 10:06 AM [facility] Platelets 322 130 - 400 K/mcL LAB HEMETOLOGY METHOD 08/17/2024 10:06 AM [facility] MPV 9.7 7.0 - 11.0 FL LAB HEMETOLOGY METHOD 08/17/2024 10:06 AM [facility] NRBC 0.0 <1.0 % LAB HEMETOLOGY METHOD 08/17/2024 10:06 AM [facility] NRBC Absolute 0.00 <0.10 K/mcL LAB HEMETOLOGY METHOD 08/17/2024 10:06 AM [facility] Neutrophils Relative 56.9 % LAB HEMETOLOGY METHOD 08/17/2024 10:06 AM [facility] Lymphocytes Relative 26.8 % LAB HEMETOLOGY METHOD 08/17/2024 10:06 AM [facility] Monocytes Relative 11.2 % LAB HEMETOLOGY METHOD 08/17/2024 10:06 AM [facility] Eosinophils Relative 3.7 % LAB HEMETOLOGY METHOD 08/17/2024 10:06 AM [facility] Basophils Relative 0.5 % LAB HEMETOLOGY METHOD 08/17/2024 10:06 AM [facility] Immature Granulocytes Relative 0.9 % LAB HEMETOLOGY METHOD 08/17/2024 10:06 AM [facility] Neutrophils Absolute 4.49 1.50 - 7.00 K/mcL LAB HEMETOLOGY METHOD 08/17/2024 10:06 AM [facility] Lymphocytes Absolute 2.11 1.00 - 5.00 K/mcL LAB HEMETOLOGY METHOD 08/17/2024 10:06 AM [facility] Monocytes Absolute 0.88 0.20 - 1.00 K/mcL LAB HEMETOLOGY METHOD 08/17/2024 10:06 AM [facility] Eosinophils Absolute 0.29 0.00 - 0.50 K/mcL LAB HEMETOLOGY METHOD 08/17/2024 10:06 AM [facility] Basophils Absolute 0.04 0.00 - 0.20 K/mcL LAB HEMETOLOGY METHOD 08/17/2024 10:06 AM [facility] Immature Granulocytes Absolute 0.07(H) 0.00 - 0.03 K/mcL LAB HEMETOLOGY METHOD 08/17/2024 10:[address] [facility] Blood Venous blood specimen / Unknown Venipuncture / Unknown 08/17/2024 5:21 AM EDT 08/17/2024 9:22 AM EDT us Elizabeth Parker MD LAB BLOOD ORDERABLES Final Resu lt Performing Organization Address City/[facility]/ZIP Co de Phone Number [facility] [address] [place] [address], [place] [phone] * Magnesium (08/17/2024 5:21 AM EDT) Magnesium 2.2 1.9 - 2.6 mg/dL LAB CHEMISTRY METHOD 08/17/2024 10:[address] [facility] Blood Venous blood specimen / Unknown Venipuncture / Unknown 08/17/2024 5:21 AM EDT 08/17/2024 9:22 AM EDT us Elizabeth Parker MD LAB BLOOD ORDERABLES Final Resu lt Performing Organization Address City/[facility]/ZIP Co de Phone Number [facility] [address] [place] [address], [place] [phone] * (ABNORMAL) Comprehensive metabolic panel (08/17/2024 5:21 AM EDT) Pathologist [facility] Sodium 140 133 - 145 mmol/L LAB CHEMISTRY METHOD 08/17/2024 10:[address] [facility] Potassium 4.0 3.5 - 5.5 mmol/L LAB CHEMISTRY METHOD 08/17/2024 10:[address] [facility] Chloride 106 96 - 110 mmol/L LAB CHEMISTRY METHOD 08/17/2024 10:[address] [facility] CO2 26 21 - 32 mmol/L LAB CHEMISTRY METHOD 08/17/2024 10:[address] [facility] Anion Gap 8 3 - 11 LAB CHEMISTRY METHOD 08/17/2024 10:30 AM [facility] Glucose 96 70 - 100 mg/dL LAB CHEMISTRY METHOD 08/17/2024 10:30 AM [facility] BUN 29(H) 5 - 25 mg/dL LAB CHEMISTRY METHOD 08/17/2024 10:30 AM [facility] Creatinine 1.28(H) 0.50 - 1.10 mg/dL LAB CHEMISTRY METHOD 08/17/2024 10:30 AM [facility] eGFR 44(L) >=60 mL/min/1. 73m2 LAB CHEMISTRY METHOD 08/17/2024 10:30 AM [facility] Comment:Calculation based on the Chronic Kidney Disease Epidemiology Collaboration (CKD-EPI) equation refit without adjustment for race. BUN/Creatinine Ratio 22.7 LAB CHEMISTRY METHOD 08/17/2024 10:30 AM [facility] Calcium 8.9 8.5 - 10.5 mg/dL LAB CHEMISTRY METHOD 08/17/2024 10:30 AM [facility] AST (SGOT) 23 10 - 42 unit/L LAB CHEMISTRY METHOD 08/17/2024 10:30 AM [facility] ALT (SGPT) 24 10 - 60 unit/L LAB CHEMISTRY METHOD 08/17/2024 10:30 AM [facility] Alkaline Phosphatase 157(H) 42 - 121 unit/L LAB CHEMISTRY METHOD 08/17/2024 10:30 AM [facility] Total Protein 6.5 6.0 - 8.0 g/dL LAB CHEMISTRY METHOD 08/17/2024 10:30 AM [facility] Albumin 2.9(L) 3.2 - 5.0 g/dL LAB CHEMISTRY METHOD 08/17/2024 10:30 AM [facility] Total Bilirubin 0.4 0.0 - 1.4 mg/dL LAB CHEMISTRY METHOD 08/17/2024 10:[address] [facility] Blood Venous blood specimen / Unknown Venipuncture / Unknown 08/17/2024 5:21 AM EDT 08/17/2024 9:22 AM EDT us Elizabeth Parker MD LAB BLOOD ORDERABLES Final Resu lt [facility] [address] [place] [address], documented in this encounter Visit Diagnoses Diagnosis Encounter for other general examination documented in this encounter Care Teams Biology Faculty Member Relationship Specialty Start Date End Date Taylor Contreras MD [address] [place] [address] PCP - General Internal Medicine 02/18/11 documented as of this encounter
--- OUTSIDE RECORDS SUMMARY | 2024-11-24 16:04 | XMS_ITS | Encounter Summary ---
Author Organization [facility] Address [address] [place] [address] Care Team Providers Care Corn Detasseler Machine Operator Name Role Phone Taylor Contreras MD Primary Care Provider [phone] Josselyn Rice RN Unavailable [phone] Encounter Details Date Type Department Care Team (Late st Contact Info) Description 09/21/2015 Scanned Document [address] [place] [phone] Provider, Generic Social History Tobacco Use Types [...] Procedure Name Priority Date/Time Associated Diagnosis Comments XRAY EXTERNAL RESULT 10/15/2015 MRI EXTERNAL RESULT 10/15/2015 documented in this encounter Results * MRI EXTERNAL RESULT (10/15/2015) Anatomical Region Laterality Modality Magnetic Resonan ce Narrative 10/23/2015 7:03 AM EDT Ordered by an unspecified provider. us Generic Provider IMG MRI ORDERABLES Edited Resul t - Final * XRAY EXTERNAL RESULT (10/15/2015) Anatomical Region Laterality Modality Computed Radiogr aphy Narrative 10/23/2015 1:41 AM EDT Ordered by an unspecified provider. us Generic Provider IMG DIAGNOSTIC IMAGING ORDERABL ES Edited Result - Final documented in this encounter Visit Diagnoses Not on filedocumented in this encounter Care Teams Corn Detasseler Machine Operator Relationship Specialty Start Date End Date Taylor Contreras MD [address] [facility] [address] [place] [address] PCP - General Internal Medicine 10/05/15 Josselyn Rice RN [address] [place] [phone] Oncology Nurse Navigator 11/07/15 documented as of this encounter
== END 2024-11-24 15:02 | disposition home or self-care (01) ==
LOC: HO.HOS 14:07
PROVIDERS: Visit Provider Physician Assistant
DX: Z47.89 Encounter for other orthopedic aftercare (principal); Z87.81 Personal history of (healed) traumatic fracture
CPT/HCPCS: 99213

== ENCOUNTER → 2024-11-24 14:09 | Outpatient (BNV) | payer MEDICARE, SELFPAY | PROVIDERS: Visit Provider Radiology Diagnostic Radiology | DX: M25.571 Pain in right ankle and joints of right foot (principal) | CPT/HCPCS: 73610 ==

== ENCOUNTER 2024-11-25 08:17 | Outpatient (REF) | payer MEDICARE, SELFPAY ==
--- NOTE | ~2024-11-25 | XR_ITS ---
EXAMINATION: XR KNEE 3 VIEWS RIGHT HISTORY: M25.569 - Pain in unspecified knee COMPARISON: There are no prior studies available for comparison. FINDINGS: Standing AP views of both knees and additional lateral and sunrise views of the right knee are submitted. Osseous mineralization is normal. A triangular osseous density is seen at the posterior aspect of the knee on the lateral view. This could represent a fracture fragment of indeterminate age. The joint spaces are preserved. The soft tissues are unremarkable. There is no joint effusion. XR/XR knee RT 3V IMPRESSION: Triangular osseous density at the posterior aspect of the knee which could represent a fracture fragment of indeterminate age. Clinical correlation with respect to trauma history is recommended. Otherwise unremarkable examination of the right knee. Electronically signed by: Christiano Senior MD 11/25/2024 10:30 AM EDT
--- OUTSIDE RECORDS SUMMARY | 2024-11-26 08:22 | XMS_ITS | Clinical Summary ---
Author Organization [facility] Address [address] [facility] [address] [place] [address] Phone Care Team Providers Care Hydraulic Elevator Constructor Name Role Phone Taylor Contreras MD Primary Care Provider [phone] Allergies Active Allergy Reactions Criticality Noted Date Comments Amoxicillin Rash Medium 10/11/2015 Iodinated Contrast Media Hives Medium 03/03/2007 Nickel Rash,Other (see comments) Low 10/11/2015 Sulfa Antibiotics Swelling Medium 10/11/2015 Medications DULoxetine (CYMBALTA) [address] capsule duloxetine 30 mg capsule,delaye d release TAKE 1 CAPSULE BY MOUTH DAILY TAKE WITH 60 MG DOSE TO MAKE TOTAL DOSE OF 90 MG 1 Active DULoxetine (CYMBALTA) [address] capsule TAKE 1 CAPSULE BY MOUTH DAILY TAKE ALONG WITH 30 TO MAKE 90 MG DOSE 1 Active gabapentin (NEURONTIN) 600 MG tablet Take 1 tablet by mouth 3 Active atorvastatin (LIPITOR) 40 MG tablet Take 40 mg by mouth 1 (one) time each day Active glipiZIDE (GLUCOTROL) 5 MG tabletIndicati ons:Type 2 Diabetes Mellitus Take 5 mg by mouth in the morning and 5 mg in the evening. Take before meals. Take 2 in the am, 1 in the pm. Active losartan (COZAAR) 100 MG tabletIndicati ons:Hypertensi on Take 1 tablet (100 mg total) by mouth 1 (one) time each day 90 tablet 3 4 02/29/20 25 Active Cholecalcifero l (Vitamin D-3) 25 MCG (1000 UT) capsuleIndicat ions:Vitamin D Deficiency Take 1,000 Units by mouth 1 (one) time each day Active carvedilol (Coreg) 25 MG tabletIndicati ons:Hypertensi on Take 3 tablets (75 mg total) by mouth in the morning and 3 tablets (75 mg total) in the evening. Take with meals. 540 tablet 3 5 11/26/19 26 Active carvedilol (Coreg) 25 MG tablet Take 3 tablets (75 mg total) by mouth in the morning and 3 tablets (75 mg total) in the evening. Take with meals. 540 tablet 3 4 11/26/19 25 Discontinu ed(Reorder (does not appear on AVS)) Active Problems Problem Noted Date Diagnosed Date [...] Hypertension 08/25/2005 Malignant tumor of breast 08/25/2000 Encounters Date Type Department Care Team Description 11/25/2024 Refill [facility] [address] [place] [phone] Dawna Oro [place] Hypertension (Primary Dx) from Last 3 Months Immunizations Immunization Administration Dates Next Due Influenza [...] [facility] [address] [address] Regine Young ARNP [address] [phone] Health Maintenance Due Date Last Done Comments [...] PM EDT) Hemoglobin A1C 6.0 (4-6) % [facility] 3 Comment: HEMOGLOBIN A1C(%) GLUCOSE CONTROL INDEX <6% EXCELLENT 6-7% VERY GOOD 7-8% GOOD 8-10% FAIR >10% POOR Hemoglobin (Hb) A1c testing is performed by Nesha Layla-quant immunoassay. Any cause of shortened erythrocyte survival will reduce exposure of erythrocytes to glucose with a consequent decrease in Hb A1c (%). Testing performed or reported by ~[facility], ~a Service of [facility], ~[address] [place] [address]~ 12/22/2018 1:42 PM EDT us Gary Brennan MD LAB BLOOD ORDERABLES Final Re sult [facility] 3 from Last 3 Months or Most Recently Relevant to Health Maintenance Insurance Medicare [facility] Medicare [facility] Care Teams Hydraulic Elevator Constructor Relationship Specialty Start Date End Date Taylor Contreras MD [address] [place], [place] PCP - General 03/19/20
--- OUTSIDE RECORDS SUMMARY | 2024-11-26 08:22 | XMS_ITS | Encounter Summary ---
Author Organization [facility] Address [address] [place] [address] Care Team Providers Care Optical Mechanic Apprentice Name Role Phone Taylor Contreras MD Primary Care Provider [phone] Josselyn Rice RN Unavailable [phone] Encounter Details Date Type Department Care Team (Late st Contact Info) Description 09/21/2015 Scanned Document [address] [place] [phone] Provider, Generic Social History Tobacco Use Types [...] on filedocumented in this encounter Care Teams Optical Mechanic Apprentice Relationship Specialty Start Date End Date Taylor Contreras MD [address] [facility] [address] [place] [address] PCP - General Internal Medicine 10/05/15 Josselyn Rice RN [address] [place] [address] Oncology Nurse Navigator 11/07/15 documented as of this encounter
--- OUTSIDE RECORDS SUMMARY | 2024-11-26 08:22 | XMS_ITS | Encounter Summary ---
Author Organization [facility] Address [address] [place] [address] Care Team Providers Care Mill Order Scheduler Name Role Phone Taylor Contreras MD Primary Care Provider [phone] Encounter Details Date Type Department Care Team (Late st Contact Info) Description 08/17/2024 Lab Requisition [facility] - Main Lab [address] [facility] [place] [address] Elizabeth Parker MD [address] [place] [address] Encounter for other general examination Social History [...] CBC auto differential (08/17/2024 5:21 AM EDT) [facility] WBC 7.9 4.8 - 10.8 K/mcL LAB HEMETOLOGY METHOD 08/17/2024 10:06 AM [facility] RBC 3.30(L) 3.80 - 4.80 M/mcL LAB HEMETOLOGY METHOD 08/17/2024 10:06 AM [facility] Hemoglobin 9.4(L) 11.5 - 16.0 g/dL LAB HEMETOLOGY METHOD 08/17/2024 10:06 AM [facility] Hematocrit 30.5(L) 35.0 - 47.0 % LAB HEMETOLOGY METHOD 08/17/2024 10:06 AM [facility] MCV 93.3 79.0 - 98.0 FL LAB HEMETOLOGY METHOD 08/17/2024 10:06 AM [facility] MCH 28.7 27.0 - 32.0 pcg LAB HEMETOLOGY METHOD 08/17/2024 10:06 AM [facility] MCHC 30.8(L) 32.0 - 37.0 g/dL LAB HEMETOLOGY METHOD 08/17/2024 10:06 AM [facility] RDW 15.0 11.0 - 15.0 % LAB HEMETOLOGY METHOD 08/17/2024 10:06 AM [facility] Platelets 322 130 - 400 K/mcL LAB HEMETOLOGY METHOD 08/17/2024 10:06 AM [facility] MPV 9.7 7.0 - 11.0 FL LAB HEMETOLOGY METHOD 08/17/2024 10:06 AM [facility] NRBC 0.0 <1.0 % LAB HEMETOLOGY METHOD 08/17/2024 10:06 AM [facility] NRBC Absolute 0.00 <0.10 K/mcL LAB HEMETOLOGY METHOD 08/17/2024 10:06 AM [facility] Neutrophils Relative 56.9 % LAB HEMETOLOGY METHOD 08/17/2024 10:06 AM [facility] Lymphocytes Relative 26.8 % LAB HEMETOLOGY METHOD 08/17/2024 10:06 AM [facility] Monocytes Relative 11.2 % LAB HEMETOLOGY METHOD 08/17/2024 10:06 AM [facility] Eosinophils Relative 3.7 % LAB HEMETOLOGY METHOD 08/17/2024 10:06 AM [facility] Basophils Relative 0.5 % LAB HEMETOLOGY METHOD 08/17/2024 10:06 AM [facility] Immature Granulocytes Relative 0.9 % LAB HEMETOLOGY METHOD 08/17/2024 10:06 AM [facility] Neutrophils Absolute 4.49 1.50 - 7.00 K/mcL LAB HEMETOLOGY METHOD 08/17/2024 10:06 AM [facility] Lymphocytes Absolute 2.11 1.00 - 5.00 K/mcL LAB HEMETOLOGY METHOD 08/17/2024 10:06 AM [facility] Monocytes Absolute 0.88 0.20 - 1.00 K/mcL LAB HEMETOLOGY METHOD 08/17/2024 10:06 AM [facility] Eosinophils Absolute 0.29 0.00 - 0.50 K/mcL LAB HEMETOLOGY METHOD 08/17/2024 10:06 AM [facility] Basophils Absolute 0.04 0.00 - 0.20 K/mcL LAB HEMETOLOGY METHOD 08/17/2024 10:06 AM [facility] Immature Granulocytes Absolute 0.07(H) 0.00 - 0.03 K/mcL LAB HEMETOLOGY METHOD 08/17/2024 10:06 AM EDT [facility] Blood Venous blood specimen / Unknown Venipuncture / Unknown 08/17/2024 5:21 AM EDT 08/17/2024 9:22 AM EDT us Elizabeth Parker MD LAB BLOOD ORDERABLES Final Resu lt Performing Organization Address City/[facility]/ZIP Co de Phone Number [facility] [address] [place] [address], [place] [phone] * Magnesium (08/17/2024 5:21 AM EDT) Magnesium 2.2 1.9 - 2.6 mg/dL LAB CHEMISTRY METHOD 08/17/2024 10:30 AM EDT [facility] Blood Venous blood specimen / Unknown Venipuncture / Unknown 08/17/2024 5:21 AM EDT 08/17/2024 9:22 AM EDT us Elizabeth Parker MD LAB BLOOD ORDERABLES Final Resu lt Performing Organization Address City/[facility]/ZIP Co de Phone Number [facility] [address] [place] [address], [place] [phone] * (ABNORMAL) Comprehensive metabolic panel (08/17/2024 5:21 [...] 11 LAB CHEMISTRY METHOD 08/17/2024 10:30 AM [facility] Glucose 96 70 - 100 mg/dL LAB CHEMISTRY METHOD 08/17/2024 10:30 AM [facility] BUN 29(H) 5 - 25 mg/dL LAB CHEMISTRY METHOD 08/17/2024 10:30 AM [facility] Creatinine 1.28(H) 0.50 - 1.10 mg/dL LAB CHEMISTRY METHOD 08/17/2024 10:30 AM [facility] eGFR 44(L) >=60 mL/min/1. 73m2 LAB CHEMISTRY METHOD 08/17/2024 10:30 AM [facility] Comment:Calculation based on the Chronic Kidney Disease Epidemiology Collaboration (CKD-EPI) equation refit without adjustment for race. BUN/Creatinine Ratio 22.7 LAB CHEMISTRY METHOD 08/17/2024 10:30 AM [facility] Calcium 8.9 8.5 - 10.5 mg/dL LAB CHEMISTRY METHOD 08/17/2024 10:30 AM [facility] AST (SGOT) 23 10 - 42 unit/L LAB CHEMISTRY METHOD 08/17/2024 10:30 AM [facility] ALT (SGPT) 24 10 - 60 unit/L LAB CHEMISTRY METHOD 08/17/2024 10:30 AM [facility] Alkaline Phosphatase 157(H) 42 - 121 unit/L LAB CHEMISTRY METHOD 08/17/2024 10:30 AM [facility] Total Protein 6.5 6.0 - 8.0 g/dL LAB CHEMISTRY METHOD 08/17/2024 10:30 AM [facility] Albumin 2.9(L) 3.2 - 5.0 g/dL LAB CHEMISTRY METHOD 08/17/2024 10:30 AM [facility] Total Bilirubin 0.4 0.0 - 1.4 mg/dL LAB CHEMISTRY METHOD 08/17/2024 10:30 AM EDT [facility] Blood Venous blood specimen / Unknown Venipuncture / Unknown 08/17/2024 5:21 AM EDT 08/17/2024 9:22 AM EDT us Elizabeth Parker MD LAB BLOOD ORDERABLES Final Resu lt [facility] [address] [place] [address], documented in this encounter Visit Diagnoses Diagnosis Encounter for other general examination documented in this encounter Care Teams Mill Order Scheduler Relationship Specialty Start Date End Date Taylor Contreras MD [address] [place] [address] PCP - General Internal Medicine 02/18/11 documented as of this encounter
--- OUTSIDE RECORDS SUMMARY | 2024-11-26 08:22 | XMS_ITS | Encounter Summary ---
Author Organization [facility] Address [address] [place] [address] Care Team Providers Care Machine Helper Name Role Phone Taylor Contreras MD Primary Care Provider [phone] Encounter Details Date Type Department Care Team (Late st Contact Info) Description 08/13/2024 Lab Requisition [facility] - Main Lab [address] [facility] [place] [address] Elizabeth Parker MD [address] [place] [phone] Encounter for other general examination Social History [...] CBC auto differential (08/13/2024 6:45 AM EDT) [facility] WBC 8.1 4.8 - 10.8 K/mcL LAB HEMETOLOGY METHOD 08/13/2024 10:53 AM [facility] RBC 3.30(L) 3.80 - 4.80 M/mcL LAB HEMETOLOGY METHOD 08/13/2024 10:53 AM [facility] Hemoglobin 9.2(L) 11.5 - 16.0 g/dL LAB HEMETOLOGY METHOD 08/13/2024 10:53 AM [facility] Hematocrit 30.7(L) 35.0 - 47.0 % LAB HEMETOLOGY METHOD 08/13/2024 10:53 AM [facility] MCV 94.2 79.0 - 98.0 FL LAB HEMETOLOGY METHOD 08/13/2024 10:53 AM [facility] MCH 28.2 27.0 - 32.0 pcg LAB HEMETOLOGY METHOD 08/13/2024 10:53 AM [facility] MCHC 30.0(L) 32.0 - 37.0 g/dL LAB HEMETOLOGY METHOD 08/13/2024 10:53 AM [facility] RDW 14.6 11.0 - 15.0 % LAB HEMETOLOGY METHOD 08/13/2024 10:53 AM [facility] Platelets 339 130 - 400 K/mcL LAB HEMETOLOGY METHOD 08/13/2024 10:53 AM [facility] MPV 9.8 7.0 - 11.0 FL LAB HEMETOLOGY METHOD 08/13/2024 10:53 AM [facility] NRBC 0.2 <1.0 % LAB HEMETOLOGY METHOD 08/13/2024 10:53 AM [facility] NRBC Absolute 0.02 <0.10 K/mcL LAB HEMETOLOGY METHOD 08/13/2024 10:53 AM [facility] Neutrophils Relative 50.6 % LAB HEMETOLOGY METHOD 08/13/2024 10:53 AM [facility] Lymphocytes Relative 36.0 % LAB HEMETOLOGY METHOD 08/13/2024 10:53 AM [facility] Monocytes Relative 9.4 % LAB HEMETOLOGY METHOD 08/13/2024 10:53 AM [facility] Eosinophils Relative 2.0 % LAB HEMETOLOGY METHOD 08/13/2024 10:53 AM [facility] Basophils Relative 0.6 % LAB HEMETOLOGY METHOD 08/13/2024 10:53 AM [facility] Immature Granulocytes Relative 1.4 % LAB HEMETOLOGY METHOD 08/13/2024 10:53 AM [facility] Neutrophils Absolute 4.12 1.50 - 7.00 K/mcL LAB HEMETOLOGY METHOD 08/13/2024 10:53 AM [facility] Lymphocytes Absolute 2.92 1.00 - 5.00 K/mcL LAB HEMETOLOGY METHOD 08/13/2024 10:53 AM [facility] Monocytes Absolute 0.76 0.20 - 1.00 K/mcL LAB HEMETOLOGY METHOD 08/13/2024 10:53 AM [facility] Eosinophils Absolute 0.16 0.00 - 0.50 K/mcL LAB HEMETOLOGY METHOD 08/13/2024 10:53 AM [facility] Basophils Absolute 0.05 0.00 - 0.20 K/mcL LAB HEMETOLOGY METHOD 08/13/2024 10:53 AM [facility] Immature Granulocytes Absolute 0.11(H) 0.00 - 0.03 K/mcL LAB HEMETOLOGY METHOD 08/13/2024 10:53 AM EDT [facility] Blood Venous blood specimen / Unknown Venipuncture / Unknown 08/13/2024 6:45 AM EDT 08/13/2024 9:49 AM EDT us Elizabeth Parker MD LAB BLOOD ORDERABLES Final Resu lt Performing Organization Address [facility]/ZIP Co de Phone Number [facility] [address] [place] [address], [place] [phone] * (ABNORMAL) Magnesium (08/13/2024 6:45 AM EDT) Pathologist [facility] Magnesium 1.8(L) 1.9 - 2.6 mg/dL LAB CHEMISTRY METHOD 08/13/2024 11:24 AM EDT [facility] Blood Venous blood specimen / Unknown Venipuncture / Unknown 08/13/2024 6:45 AM EDT 08/13/2024 9:49 AM EDT us Elizabeth Parker MD LAB BLOOD ORDERABLES Final Resu lt Performing Organization Address [facility] de Phone Number [facility] [address] [place] [address], [place] [phone] * (ABNORMAL) Comprehensive metabolic panel (08/13/2024 6:45 AM EDT) Pathologist [facility] Sodium 143 133 - 145 mmol/L LAB CHEMISTRY METHOD 08/13/2024 11:24 AM EDT [facility] Potassium 4.3 3.5 - 5.5 mmol/L LAB CHEMISTRY METHOD 08/13/2024 11:24 AM EDT [facility] Chloride 106 96 - 110 mmol/L LAB CHEMISTRY METHOD 08/13/2024 11:24 AM EDT [facility] CO2 30 21 - 32 mmol/L LAB CHEMISTRY METHOD 08/13/2024 11:24 AM EDT [facility] Anion Gap 7 3 - 11 LAB CHEMISTRY METHOD 08/13/2024 11:24 AM [facility] Glucose 83 70 - 100 mg/dL LAB CHEMISTRY METHOD 08/13/2024 11:24 AM [facility] BUN 23 5 - 25 mg/dL LAB CHEMISTRY METHOD 08/13/2024 11:24 AM [facility] Creatinine 1.05 0.50 - 1.10 mg/dL LAB CHEMISTRY METHOD 08/13/2024 11:24 AM [facility] eGFR 56(L) >=60 mL/min/1. 73m2 LAB CHEMISTRY METHOD 08/13/2024 11:24 AM [facility] Comment:Calculation based on the Chronic Kidney Disease Epidemiology Collaboration (CKD-EPI) equation refit without adjustment for race. BUN/Creatinine Ratio 21.9 LAB CHEMISTRY METHOD 08/13/2024 11:24 AM [facility] Calcium 8.9 8.5 - 10.5 mg/dL LAB CHEMISTRY METHOD 08/13/2024 11:24 AM [facility] AST (SGOT) 35 10 - 42 unit/L LAB CHEMISTRY METHOD 08/13/2024 11:24 AM [facility] ALT (SGPT) 26 10 - 60 unit/L LAB CHEMISTRY METHOD 08/13/2024 11:24 AM [facility] Alkaline Phosphatase 120 42 - 121 unit/L LAB CHEMISTRY METHOD 08/13/2024 11:24 AM [facility] Total Protein 6.4 6.0 - 8.0 g/dL LAB CHEMISTRY METHOD 08/13/2024 11:24 AM [facility] Albumin 2.9(L) 3.2 - 5.0 g/dL LAB CHEMISTRY METHOD 08/13/2024 11:24 AM [facility] Total Bilirubin 0.3 0.0 - 1.4 mg/dL LAB CHEMISTRY METHOD 08/13/2024 11:24 AM EDT [facility] Blood Venous blood specimen / Unknown Venipuncture / Unknown 08/13/2024 6:45 AM EDT 08/13/2024 9:49 AM EDT us Elizabeth Parker MD LAB BLOOD ORDERABLES Final Resu lt [facility] [address] [place] [address], documented in this encounter Visit Diagnoses Diagnosis Encounter for other general examination documented in this encounter Care Teams Machine Helper Relationship Specialty Start Date End Date Taylor Contreras MD [address] [place] [address] PCP - General Internal Medicine 02/18/11 documented as of this encounter
--- OUTSIDE RECORDS SUMMARY | 2024-11-26 08:22 | XMS_ITS | Clinical Summary ---
Author Organization [facility] Address [address] [place] [address] Care Team Providers Care Director Internal Control Name Role Phone Taylor Contreras MD Primary Care Provider [phone] Josselyn Rice RN Unavailable [phone] Allergies Active Allergy Reactions Criticality Noted [...] [place] [id number] MEDICARE PART A & B [facility] PPO JOSE CARLOS [id number] Advance Directives * Full Code (Latest Code Status on File) Date Activated Date Inactivated Comments 11/05/2015 5:07 PM 11/11/2015 9:17 PM * Full Code Date Activated Date Inactivated Comments 11/05/2015 6:11 AM 11/05/2015 5:07 PM Care Teams Director Internal Control Relationship Specialty Start Date End Date Taylor Contreras MD [facility] [address] [place] [address] PCP - General Internal Medicine 10/05/15 Josselyn Rice RN [address] [address] Oncology Nurse Navigator 11/07/15
--- OUTSIDE RECORDS SUMMARY | 2024-11-26 08:22 | XMS_ITS | Clinical Summary ---
Author Organization [address] Address [address] [place] [phone] Phone Care Team Providers Care Porter Baggage Name Role Phone Taylor Contreras MD Primary Care Provider [phone] Surgical History Surgery Date Site/Laterality Comments NEPHRECTOMY [...] LAB CHEMISTRY METHOD 08/17/2024 10:30 AM EDT [facility] Potassium 4.0 3.5 - 5.5 mmol/L LAB CHEMISTRY METHOD 08/17/2024 10:30 AM [facility] Chloride 106 96 - 110 mmol/L LAB CHEMISTRY METHOD 08/17/2024 10:30 AM [facility] CO2 26 21 - 32 mmol/L LAB CHEMISTRY METHOD 08/17/2024 10:30 AM [facility] Anion Gap 8 3 - 11 LAB CHEMISTRY METHOD 08/17/2024 10:30 AM [facility] Glucose 96 70 - 100 mg/dL LAB CHEMISTRY METHOD 08/17/2024 10:30 AM [facility] BUN 29(H) 5 - 25 mg/dL LAB CHEMISTRY METHOD 08/17/2024 10:30 AM [facility] Creatinine 1.28(H) 0.50 - 1.10 mg/dL LAB CHEMISTRY METHOD 08/17/2024 10:30 AM [facility] eGFR 44(L) >=60 mL/min/1. 73m2 LAB CHEMISTRY METHOD 08/17/2024 10:30 AM [facility] Comment:Calculation based on the Chronic Kidney Disease Epidemiology Collaboration (CKD-EPI) equation refit without adjustment for race. BUN/Creatinine Ratio 22.7 LAB CHEMISTRY METHOD 08/17/2024 10:30 AM [facility] Calcium 8.9 8.5 - 10.5 mg/dL LAB CHEMISTRY METHOD 08/17/2024 10:30 AM [facility] AST (SGOT) 23 10 - 42 unit/L LAB CHEMISTRY METHOD 08/17/2024 10:30 AM [facility] ALT (SGPT) 24 10 - 60 unit/L LAB CHEMISTRY METHOD 08/17/2024 10:30 AM [facility] Alkaline Phosphatase 157(H) 42 - 121 unit/L LAB CHEMISTRY METHOD 08/17/2024 10:30 AM EDT [facility] Total Protein 6.5 6.0 - 8.0 g/dL LAB CHEMISTRY METHOD 08/17/2024 10:30 AM EDT [facility] Albumin 2.9(L) 3.2 - 5.0 g/dL LAB CHEMISTRY METHOD 08/17/2024 10:30 AM EDT [facility] Total Bilirubin 0.4 0.0 - 1.4 mg/dL LAB CHEMISTRY METHOD 08/17/2024 10:30 AM EDT [facility] Blood Venous blood specimen / Unknown Venipuncture / Unknown 08/17/2024 5:21 AM EDT 08/17/2024 9:22 AM EDT us Elizabeth Parker MD LAB BLOOD ORDERABLES Final Resu lt [facility] [address] [place] [address], from Last 3 Months or Most Recently Relevant to Health Maintenance Insurance MEDICARE [facility] Care Teams Porter Baggage Relationship Specialty Start Date End Date Taylor Contreras MD [address] [place] [phone] PCP - General Internal Medicine 02/18/11
--- OUTSIDE RECORDS SUMMARY | 2024-11-26 08:22 | XMS_ITS | Encounter Summary ---
Author Organization [facility] Address [address] [place] [address] Care Team Providers Care Lumber Chain Offbearer Name Role Phone Taylor Contreras MD Primary Care Provider Josselyn Rice RN Unavailable [phone] Encounter Details Date Type Department Care Team (Late st Contact Info) Description 09/04/2015 Scanned Document [address] [place] [phone] Provider, Generic Social History Tobacco Use Types [...] on filedocumented in this encounter Care Teams Lumber Chain Offbearer Relationship Specialty Start Date End Date Taylor Contreras MD [address] [facility] [address] [place] [address] PCP - General Internal Medicine 10/05/15 Josselyn Rice RN [address] [address] Oncology Nurse Navigator 11/07/15 documented as of this encounter
--- OUTSIDE RECORDS SUMMARY | 2024-11-26 08:23 | XMS_ITS | Encounter Summary ---
Author Organization [facility] Address [address] [facility] [address] [place] [address] Phone Care Team Providers Care Guide Setter Name Role Phone Taylor Contreras MD Primary Care Provider [phone] Reason for Visit * Reason Onset Date Comments Med Refill 11/25/2024 Encounter Details Date Type Department Care Team ([facility] Contact Info) Description 11/25/2024 Refill [facility] [address] [facility] [address] [place] [phone] Dawna Oro MA [address] [place] [address] Hypertension (Primary Dx) Social History Tobacco Use Types Packs/Day Years [...] as of this encounter Plan of Treatment Upcoming Encounters Date Type Department Care Team (Late Contact Info) Description 02/27/2025 1:00 PM EST Office Visit [facility] [address] [facility] [address] [place] [address] Regine Young ARNP [address] [facility] [address] [place] [address] documented as of this encounter Visit Diagnoses Diagnosis Hypertension- Primary documented in this encounter Care Teams Guide Setter Relationship Specialty [place] [address] [place] [address] [place] PCP - General 03/19/20 documented as of this encounter
--- OUTSIDE RECORDS SUMMARY | 2024-11-26 08:23 | XMS_ITS | Encounter Summary ---
Author Organization [facility] Address [address] [place] [address] Care Team Providers Care Director Of Physical Therapy Name Role Phone Taylor Contreras MD Primary Care Provider [phone] Josselyn Rice RN Unavailable [phone] Encounter Details Date Type Department Care Team (Late st Contact Info) Description 11/05/2015 Scanned Document [address] [place] [phone] Provider, Generic Social History Tobacco Use Types [...] filedocumented in this encounter Care Teams Director Of Physical Therapy Relationship Specialty Start Date End Date Taylor Contreras MD [address] [facility] [address] [place] [address] PCP - General Internal Medicine 10/05/15 Josselyn Rice RN [address] [place] [phone] Oncology Nurse Navigator 11/07/15 documented as of this encounter
--- OUTSIDE RECORDS SUMMARY | 2024-11-26 08:23 | XMS_ITS | Encounter Summary ---
Author Organization [facility] Address [address] [place] [address] Care Team Providers Care Day Care Assistant Name Role Phone Taylor Contreras MD Primary Care Provider [phone] Josselyn Rice RN Unavailable [phone] Encounter Details Date Type Department Care Team (Late st Contact Info) Description 04/29/2016 Scanned Document [address] [place] [phone] Provider, Generic Social History Tobacco Use Types [...] on filedocumented in this encounter Care Teams Day Care Assistant Relationship Specialty Start Date End Date Taylor Contreras MD [address] [facility] [address] [place] [address] PCP - General Internal Medicine 10/05/15 Josselyn Rice RN [address] [place] [phone] Oncology Nurse Navigator 11/07/15 documented as of this encounter
--- OUTSIDE RECORDS SUMMARY | 2024-11-26 08:23 | XMS_ITS | Encounter Summary ---
Author Organization [facility] Address [address] [facility] [address] [place] [address] Phone Care Team Providers Care Section Hand Name Role Phone Taylor Contreras MD Primary Care Provider [phone] Encounter Details Date Type Department Care Team (Late Contact Info) Description 06/06/2021 Telephone [facility] [address] [facility] [address] [place] [address] Gary Brennan MD [address] [place] [phone] Social History Tobacco Use Types Packs/Day Years [...] for guidance. Please call her back at [phone] Thank you documented in this encounter Plan of Treatment Upcoming Encounters Date Type Department Care Team (Late st Contact Info) Description 02/27/2025 1:00 PM EST Office Visit [facility] [address] [facility] [address] [place] [address] Regine Young ARNP [address] [facility] [address] [place] [address] documented as of this encounter Visit Diagnoses Not on filedocumented in this encounter Care Teams Section Hand Relationship Specialty Start Date End Date Taylor Contreras MD [address] [place], [place] PCP - General 03/19/20 documented as of this encounter
--- OUTSIDE RECORDS SUMMARY | 2024-11-26 08:23 | XMS_ITS | Encounter Summary ---
Author Organization [facility] Address [address] [place] [address] Care Team Providers Care Epic Interface Analyst Name Role Phone Taylor Contreras MD Primary Care Provider [phone] Josselyn Rice RN Unavailable [phone] Encounter Details Date Type Department Care Team (Late st Contact Info) Description 11/01/2015 Prep for Surgery [facility] Urolog[facility] Surgery [address] [place] [address] Matthew Moreno MD [address] [address] Social History Tobacco Use Types Packs/Day Years [...] on filedocumented in this encounter Care Teams Epic Interface Analyst Relationship Specialty Start Date End Date Taylor Contreras MD [address] [facility] [address] [place] [address] PCP - General Internal Medicine 10/05/15 Josselyn Rice RN [address] [phone] Oncology Nurse Navigator 11/07/15 documented as of this encounter
== END 2024-11-25 08:18 | disposition home or self-care (01) ==
LOC: HO.HOSX 08:17
PROVIDERS: Visit Provider Physician Assistant
DX: M17.11 Unilateral primary osteoarthritis, right knee (principal)
CPT/HCPCS: 20610; 73562; 99212; J0665; J1100; J2003

== ENCOUNTER 2024-11-25 10:01 | Outpatient (AMB) | payer MEDICARE, SELFPAY ==
--- NOTE | 2024-11-25 10:17 | MHC.OFFVIS ---
Intake Visit Reasons: New Prob - right knee eval Intake Note: Dorie is a 74 year old female who presents today for a evaluation appointment for her right knee. Patient states ongoing pain for a couple of weeks. She states that at this moment no injury or trauma to the knee. Patient states that her pain is posterior of the knee and anterior. Her pain is worse when walking, bending and going up and down the stairs. She has tried Tylenol extra strength with no relief. Allergies amoxicillin Allergy (Verified 11/25/24 10:20) Rash Iodinated Contrast Media (Contrast Dye) Allergy (Verified 11/25/24 10:20) Rash, [place] like Blood Boiling nickel Allergy (Verified 11/25/24 10:20) Rash rubber, unspecified Allergy (Verified 11/25/24 10:20) + Rxn from allergy testing Sulfa (Sulfonamide Antibiotics) Allergy (Verified 11/25/24 10:20) Swelling HPI HPI New Prob - right knee eval: Details: Dorie is a 74 year old female who presents today for of right knee pain. Patient states ongoing pain for a couple of weeks. She denies any injury or trauma. Patient states that her pain is posterior of the knee and anterior. Her pain is worse when walking, bending and going up and down the stairs. She has tried Tylenol extra strength with no relief. [facility] Medical History Fatty liver History of chemotherapy Arthritis of spine Back pain Hx of diarrhea Diabetes History of headache TAMARA (obstructive sleep apnea) Elevated cholesterol HTN (hypertension) Surgical History Hx of varicose vein ligation and stripping History of lumpectomy of right breast History of lumpectomy of left breast History of kidney surgery History of nephrectomy, left Social History Are you a primary school childcare attendant to a significant other at home: No Do you presently have visiting nurse or other home services: No Comment: COUNTS CORRECT Patient Tobacco Use Status: Former Tobacco user Tobacco use type: Cigarette Second Hand Smoke Exposure: No service: No Review of Systems Const All systems reviewed & are unremarkable except as noted in HPI and below Physical Exam Const General: cooperative, healthy appearing and no acute distress Resp Effort & Inspection: normal respiratory effort and able to speak in complete sentences Extrem Other: Right knee: Normal to inspection. No ecchymosis, erythema, or joint effusion. No tenderness to palpation along the medial or lateral joint lines. Full knee extension and flexion with crepitus. NVI. Psych Appearance: grossly normal Mental Status: mental status grossly normal Attitude: cooperative Office Procedures AMB Joint Injection/Aspiration Joint Injection/Aspiration Primary Site: right knee Prep: site was prepped using aseptic technique, ethochloride spray was applied and injection warnings given Injected: 40 mg of, with 3 mL of, 1% plain lidocaine, 0.25% bupivacaine, in the joint and decadron Approach Used: anterolateral Procedure: The patient tolerated the procedure well, but had some pain with the injection and there was some relief with the local anesthesia Coding - Large joint Procedure code (CPT) selection complete Assessment & Plan Assessment & Plan (1) Osteoarthritis of right knee: Code(s): M17.11 - Unilateral primary osteoarthritis, right knee Category: Medical Plan The patient was offered a cortisone injection in the right knee. The patient was explained the risks, benefits, and alternatives to receiving this injection. After receiving consent for the injection, the patient had the procedure done while in the office today. The patient tolerated the procedure well with no complications. Follow-up will be PRN, or sooner if needed X-rays of the right knee which were obtained while in the office today and were reviewed by me, Brittany Tilley PA-C, revealed arthritic changes. Orders: Orders XR knee RT 3V Today M25.569 - Pain in unspecified knee Coding Level of Care Code Est Pt Level 3 (42094) Diagnoses Osteoarthritis of right knee M17.11 CPT Codes Coding - Large joint: 00997 - Large joint ([id number])
== END 2024-11-25 11:12 | disposition home or self-care (01) ==
PROVIDERS: Visit Provider Physician Assistant
DX: M17.11 Unilateral primary osteoarthritis, right knee (principal)
CPT/HCPCS: 20610; 99213

== ENCOUNTER → 2024-11-25 10:04 | Outpatient (BNV) | payer MEDICARE, SELFPAY | PROVIDERS: Visit Provider Radiology Diagnostic Radiology | DX: M25.561 Pain in right knee (principal) | CPT/HCPCS: 73562 ==